=== PATIENT | female | born 1960 | race Caucasian/White ===

== ENCOUNTER 2016-08-31 10:20 | Emergency (ER) | payer BC ==
--- NOTE | 2016-08-31 10:31 | ED Physician Documentation ---
General Adult - HISTORIAN Historian: patient - HPI Chief Complaint: General Adult Timing: still present Further Comments: yes (Pt is a 56 yo female with chronic edema of LE's who c/o increased LE swelling and pain as well as abd pain. Pt did not take her lasix or other daily meds today. Pt c/o L knee pain.) - ROS CONST: other (swelling) EYES/ENT: none CVS/RESP: none GI/: abdominal pain MS/SKIN/LYMPH: leg swelling - PAST HX Past History: hypertension, other (chronic LE edema) Other History: diabetes Type 2 Allergies/Adverse Reactions: Allergies Allergy/AdvReac Type Severity Reaction Status Date / Time No Known Allergies Allergy Verified 05/23/14 12:12 Home Medications: Ambulatory Orders Medication Instructions Recorded oxyCODONE HCL [Percolone] 5 mg PO Q4H PRN 08/31/16 oxyCODONE HCL/ACETAMINOPHEN 1 - 2 tab PO Q4-6 PRN 08/31/16 [Percocet 5-325 mg Tablet] - SOCIAL HX Smoking History: non-smoker - FAMILY HX Family History: No - VITAL SIGNS Vital Signs: Vital Signs Temp Pulse Resp BP Pulse Ox 128/68 06/30/14 11:50 - REVIEWED ASSESSMENTS Nursing Assessment Reviewed: Yes Vitals Reviewed: Yes Progress - Progress Progress: Lasix 40 mg IV some improvement low wbc, pt seen by hematology d/w pcp, will f/u this week. - EKG/XRAY/CT XRAY: knee (L knee: no acute osseous abnormality) General Adult Physical Exam - PHYSICAL EXAM GENERAL APPEARANCE: moderate distress EENT: pharynx normal NECK: normal inspection, supple RESPIRATORY: no resp distress, chest non-tender, breath sounds normal CVS: reg rate & rhythm, heart sounds normal ABDOMEN: soft, normal bowel sounds, tenderness, other (possible ascites) BACK: normal inspection SKIN: warm/dry, normal color EXTREMITIES: non-tender, normal range of motion, edema (3+) NEURO: oriented X3, motor nml, sensation nml Discharge Clincal Impression: LE edema, leg pain, abd pain Referrals: Alexis Pollard MD [Primary Care Provider] - Home Medications: Ambulatory Orders oxyCODONE HCL [Percolone] 5 mg PO Q4H PRN 08/31/16 oxyCODONE HCL/ACETAMINOPHEN [Percocet 5-325 mg Tablet] 1 - 2 tab PO Q4-6 PRN 02/07 Condition: Stable Disposition: 01 HOME, SELF-CARE Decision to Admit: NO Decision Time: 13:45
[2016-08-31 11:31] LABS: BASOPHILS % 0.6 (0.0-1.5); EOSINOPHILS % 4.5 % (0.0-6.8); MEAN CORPUSCULAR HEMOGLOBIN 33.8 pg (28.0-34.0); MEAN CORPUSCULAR VOLUME 103.9 fl (80.0-100.0); MONOCYTES % 10.5 % (0.0-11.0); NEUTROPHILS # 1.1 # k/uL (1.4-7.7)
[2016-08-31 11:45] LABS: eGFR (African) > 60; eGFR (Non-African) > 60
[2016-08-31] MEDS ORDERED: FUROSEMIDE 40 MG/4 ML VIAL ONE (11:48)
[2016-08-31 13:59] VITALS: BP 104/48
[2016-08-31] MEDS ORDERED: FUROSEMIDE 40 MG/4 ML VIAL IVP SCH (14:00)
--- NOTE | 2016-09-01 05:17 | Diagnostic Imaging Report ---
HILDA YUSUF [facility] [address] [facility] [address] [place] [address]. [id number] Report Submission Date: August 31, 2016 1:35:16 PM CDT Patient Study Name: TIM HIDALGO Date: August 31, 2016 12:05:12 PM CDT Modality Type: CR Gender: F Description: LOWER EXTREMITY : 56 Institution: [facility] Physician: HILDA YUSUF Left knee, 3 views. History: Left knee pain without known injury Findings: The osseous structures are intact without acute fracture. The joint space and alignment are normal. There is no soft tissue swelling. No joint effusion present. Impression: 1. No acute osseous abnormality. Electronically signed on August 31, 2016 1:35:16 PM CDT by: Jonah BHATT
--- NOTE | 2016-09-01 05:18 | Diagnostic Imaging Report ---
HILDA YUSUF [facility] [address] [facility] [address] [place] [address]. [id number] Report Submission Date: August 31, 2016 1:35:16 PM CDT Patient Study Name: TIM HIDALGO Date: August 31, 2016 12:05:12 PM CDT Modality Type: CR Gender: F Description: LOWER EXTREMITY : 56 Institution: [facility] Physician: HILDA YUSUF Left knee, 3 views. History: Left knee pain without known injury Findings: The osseous structures are intact without acute fracture. The joint space and alignment are normal. There is no soft tissue swelling. No joint effusion present. Impression: 1. No acute osseous abnormality. Electronically signed on August 31, 2016 1:35:16 PM CDT by: Jonah BHATT
== END 2016-08-31 13:50 | disposition home or self-care (01) ==
LOC: ED 10:20
DX: R60.0 Localized edema (principal); R10.9 Unspecified abdominal pain
CPT/HCPCS: 73562; 80053; 83880; 85025; J1940; 96374; 99283; S1016

== ENCOUNTER 2016-09-10 09:18 | Inpatient (IN) | payer BC ==
[2016-09-10 10:04] LABS: BASOPHILS % 0.4 (0.0-1.5); EOSINOPHILS % 2.4 % (0.0-6.8); MEAN CORPUSCULAR HEMOGLOBIN 34.7 pg (28.0-34.0); MEAN CORPUSCULAR VOLUME 103.2 fl (80.0-100.0); MONOCYTES % 9.6 % (0.0-11.0); NEUTROPHILS # 1.6 # k/uL (1.4-7.7)
--- NOTE | 2016-09-10 10:13 | Diagnostic Imaging Report ---
[facility] [address] [facility].[address] [address] Report Submission Date: September 10, 2016 10:06:38 AM CDT Patient Study Name: TIM HIDALGO Date: September 10, 2016 9:48:31 AM CDT Modality Type: CR Gender: F Description: CHEST : 56 Institution: [facility] Physician: JOAQUÍN TANNER (DISTRIBUTION A CLASS LINEMAN) - ER Single portable view of the chest History: LEFT SIDED CHEST PAIN AND SHORTNESS OF BREATH Findings: No comparison studies Patient is rotated. Cardiac size is upper limits of normal Pulmonary vascular congestion is present with diffuse reticular nodular interstitial lung opacities Basilar atelectasis. 1 cm nodular opacity in the right midlung, indeterminate No acute osseous pathology Impression: 1. Pulmonary vascular congestion/edema 2. Minimal left basilar atelectasis. 3. A 1 cm nodule right mid lung, please compare with prior studies Electronically signed on September 10, 2016 10:06:38 AM CDT by: Funmilayo BHATT
--- NOTE | 2016-09-10 10:21 | ED Physician Documentation ---
General Adult - HISTORIAN Historian: patient - HPI Stated Complaint: BLE swelling, pain Chief Complaint: General Adult Further Comments: yes (56 year old female brought in via wheelchair by family. Patient assisted to stretcher, difficulty with ambulation due to signficant edema in leg and "pain in feet". Patient reports increased edema in legs since last week. Denies dyspnea at rest, c/o dyspnea with exerction.) - ROS CONST: recent illness (08/31 - ER visit for leg edema) EYES/ENT: none CVS/RESP: shortness of breath (with exerction) GI/: none MS/SKIN/LYMPH: leg swelling (bilaterally), leg pain (bilaterally, feet pain) NEURO/PSYCH: difficulty walking (due to edema and pain) - PAST HX Past History: hypertension, other (chronic pancytopenia, HTN, IDDM, ) Other History: diabetes Type 2, other (chronic LE edema) Allergies/Adverse Reactions: Allergies Allergy/AdvReac Type Severity Reaction Status Date / Time No Known Allergies Allergy Verified 09/10/16 09:51 Home Medications: Ambulatory Orders Medication Instructions Recorded oxyCODONE HCL [Percolone] 5 mg PO Q4H PRN 08/31/16 oxyCODONE HCL/ACETAMINOPHEN 1 - 2 tab PO Q4-6 PRN 08/31/16 [Percocet 5-325 mg Tablet] - SOCIAL HX Smoking History: non-smoker - FAMILY HX Family History: No - VITAL SIGNS Vital Signs: Vital Signs Temp Pulse Resp BP Pulse Ox 98.2 F 81 26 H 106/46 98 09/10/16 09:53 09/10/16 09:53 09/10/16 09:53 09/10/16 09:53 09/10/16 09:53 - REVIEWED ASSESSMENTS Nursing Assessment Reviewed: Yes Vitals Reviewed: Yes Progress - Progress Progress: Old records reviewed - history of anemia and leukopenia. Patient states she was seen by hematology "a long time ago". Has not seen PCP since March. [address] Chang - patient has history of pancytopenia since 2014, was evaluated by Dr Carrera, did not return for follow up visit. Recommended patient schedule follow visit in office. Will contact Dr Pollard for admission and treatment of leg edema. Repeat chest xray in AM, may need CT chest if nodule present tomorrow. [id number] [facility] - EKG/XRAY/CT XRAY: chest (see report) ED Results Lab/Radiology - Lab Results Lab Results: Lab Results 09/10/16 09:55 WBC 2.70 K/ul L K/ul (4.00-12.00) RBC 2.89 M/ul L M/ul (3.90-5.20) Hgb 10.0 g/dL L g/dL (12.0-16.0) Hct 29.8 % L % (34.5-46.5) MCV 103.2 fl H fl (80.0-100.0) MCH 34.7 pg H pg (28.0-34.0) MCHC 33.6 g/dL g/dL (30.0-36.0) RDW 13.6 % % (11.3-14.3) Plt Count 71 K/mm3 L K/mm3 (130-400) Neut % (Auto) 59.1 % % (39.0-79.0) Lymph % (Auto) 24.9 % % (16.0-50.0) [place] % (Auto) 9.6 % % (0.0-11.0) Eos % (Auto) 2.4 % % (0.0-6.8) Baso % (Auto) 0.4 (0.0-1.5) Neut # 1.6 # k/uL # k/uL (1.4-7.7) Lymph # 0.7 # k/uL # k/uL (0.6-4.0) [place] # 0.3 # k/uL # k/uL (0.0-0.9) Eos # 0.1 # k/uL # k/uL (0.0-0.6) Baso # 0.0 # k/uL # k/uL (0.0-0.5) Reactive Lymphs % 3.6 % % (0.0-5.0) Reactive Lymphs # 0.1 # k/uL # k/uL (0.0-0.8) - Radiology Radiology Impressions: Single portable view of the chest History: LEFT SIDED CHEST PAIN AND SHORTNESS OF BREATH Findings: No comparison studies Patient is rotated. Cardiac size is upper limits of normal Pulmonary vascular congestion is present with diffuse reticular nodular interstitial lung opacities Basilar atelectasis. 1 cm nodular opacity in the right midlung, indeterminate No acute osseous pathology Impression: 1. Pulmonary vascular congestion/edema 2. Minimal left basilar atelectasis. 3. A 1 cm nodule right mid lung, please compare with prior studies Electronically signed on September 10, 2016 10:06:38 AM CDT by: Funmilayo Lal - Orders Orders: ED Orders Category Date Time Status Place Saline Lock/IV NOW Care 09/10/16 09:26 Active CHEST 1 VIEW [RAD] Stat Exams 09/10/16 09:37 Completed BNP [NT-proBNP] Stat Lab 09/10/16 09:55 Received CBC/PLATELET/DIFF Stat Lab 09/10/16 09:55 Completed CMP Stat Lab 09/10/16 09:55 Received TROPONIN I (cTnI) Stat Lab 09/10/16 09:55 Received UA W/MICRO IF INDICATED Stat Lab 09/10/16 09:26 Ordered EKG WITH COMPARISON Stat Ther 09/10/16 09:38 Ordered General Adult Physical Exam - PHYSICAL EXAM GENERAL APPEARANCE: moderate distress EENT: eye inspection normal, GARCIA RESPIRATORY: no resp distress, chest non-tender, other (deminished in bases) CVS: reg rate & rhythm, heart sounds normal, equal pulses, no murmur, no gallop , PMI nml, no JVD, no friction rub, 24 ABDOMEN: soft, no organomegaly, normal bowel sounds, no abdominal bruit, no distension, other (morbid obesity) EXTREMITIES: non-tender, edema (3+ ankle, 2+ lower legs and thighs), other ( unable to to bear weight due to pain and edema) NEURO: oriented X3, CN's nml as tested, motor nml, sensation nml, mood/affect nml Discharge Clincal Impression: Bilateral leg edema, Pancytopenia, Pulmonary nodule, right CHF (congestive heart failure) Qualifiers: Congestive heart failure type: unspecified congestive heart failure type Congestive heart failure chronicity: acute Qualified Code(s): I50.9 - Heart failure, unspecified Iron deficiency anemia Qualifiers: Iron deficiency anemia type: inadequate dietary iron intake Qualified Code(s): D50.8 - Other iron deficiency anemias Home Medications: Ambulatory Orders oxyCODONE HCL [Percolone] 5 mg PO Q4H PRN 05/10/17 oxyCODONE HCL/ACETAMINOPHEN [Percocet 5-325 mg Tablet] 1 - 2 tab PO Q4-6 PRN 02/07 Condition: Stable Disposition: 01 HOME, SELF-CARE Decision to Admit: NO Decision Time: 11:16
[2016-09-10 10:22] LABS: eGFR (African) > 60; eGFR (Non-African) > 60
[2016-09-10] MEDS ORDERED: FUROSEMIDE 40 MG/4 ML VIAL IVP ONE (10:25)
[2016-09-10] MEDS: GABAPENTIN 100 MG CAPSULE PO SCH ×2 (12:58→17:33)
[2016-09-10] MEDS: POTASSIUM CHLORIDE 20 MEQ TABLET.ER PO SCH ×2 (12:58→20:47)
--- NOTE | 2016-09-10 14:54 | History and Physical Report ---
History of Present Illnes - History of Present Illness Reason for Visit: leg swelling and shortness of breath History of Present Illness: Ms. Betancourt is a 56yo woman with a medical history that includes DM, pancytopenia, and chronic leg swelling. She has lasix at home, but it is not clear how much she takes it. For the last couple of weeks the swelling has been worse in her legs. This morning it got to the point that she was not really able to get up and around. She also had shortness of breath and some pain in the left side of her chest. Evaluation in the ER showed pancytopenia as well as pulmonary congestion on Xray, as well as a 1cm right midlung opacity. She was also noted to have difficulty ambulating. She was admitted to the floor for IV lasix and further evaluation. - Past Medical History Cardiac: HTN, Other (chronic leg swelling). denies: CAD, Valve insufficiency, Pulmonary hypertension Heme/Onc: Other (Pancytopenia) Rheumatologic: Other (Psoriasis) Endocrine: Diabetes (IDDM) - Past Surgical History Past Surgical History: Total Knee Replacement, Other (gall stone removal) - Past Social History Smoke: No Alcohol: None Lives: With Family - Health Maintenance Health Maintenance: Cholesterol Pneumonia Vaccine: No Resuscitation Status: Resusciation Status Resuscitation Status Full Code Review of Systems - Review of Systems Constitutional: negative: Fever, Chills Eyes: negative: pain, vision change ENT: negative: Ear Pain, Ear Discharge Respiratory: Cough, Shortness of Breath, SOB with Excertion. negative: Wheezing Cardiovascular: Chest Pain, Edema. negative: Palpitations Gastrointestinal: negative: Nausea, Vomiting, Diarrhea, Constipation Genitourinary: negative: Dysuria, Frequency Musculoskeletal: Leg Pain. negative: Shoulder Pain Skin: negative: Lesions, Bruising Neurological: negative: Change in Speech, Confusion - Medications/Allergies Allergies/Adverse Reactions: Allergies Allergy/AdvReac Type Severity Reaction Status Date / Time No Known Allergies Allergy Verified 09/10/16 09:51 Current Inpatient Medications: Current Inpatient Medications Ferrous Sulfate (Feosol) 325 mg PO 1100 BIRGIT Furosemide (Lasix) 40 mg IVP Q12 BIRGIT Gabapentin (Neurontin) 100 mg PO TID COUNTS INCLUDE 234 BEDS AT THE [facility] Last Admin: 09/10/16 12:58 Dose: 100 mg Glimepiride (Amaryl) 2 mg PO DAILY COUNTS INCLUDE 234 BEDS AT THE [facility] Lisinopril (Prinivil) 5 mg PO DAILY COUNTS INCLUDE 234 BEDS AT THE [facility] Metformin HCl (Glucophage) 1,000 [place] [address] COUNTS INCLUDE 234 BEDS AT THE [facility] Potassium Chloride (Klor-Con M20) 20 meq PO BID COUNTS INCLUDE 234 BEDS AT THE [facility] Last Admin: 09/10/16 12:58 Dose: 20 meq Sodium Chloride (Normal Saline Flush) 3 ml IV BID COUNTS INCLUDE 234 BEDS AT THE [facility] Exam - Exam Vital Signs: HR 81 T 98.2 R 26 BP 106/46 SpO2 98% General: Alert, Oriented to Person, Oriented to Place, Oriented to Time, Cooperative, No acute distress HEENT: Atraumatic, PERRLA, EOMI Neck: Normal Range of Motion Lungs: Decreased Air Movement. No: Respiratory Distress, Wheezes, Stridor Cardiovascular: Regular rate, Normal S1, Normal S2. No: Rubs Peripheral Edema: 3+ Abdomen: Soft, No masses, Other (mildly tender across lower quadrants). No: Distended, Rigid, Hepatomegaly, Splenomegaly Integumentary: Warm, Dry, Other (the skin of her legs is not erythematous or with skin thickening) Extremities: No: No edema, No tenderness/swelling Neurological: Normal speech, Cranial nerves 3-12 NL. No: Normal gait (limited d /t leg swelling) Psych/Mental Status: Mental status NL - Laboratory Results Laboratory Results: WBC 2.7 H/H 10.0/29.8 Plt 71 Troponin less than 0.03 BNP 576 AST/ALT 60/22 Na 138 K 3.9 BUN 22 Shadowgraph Scale Operator 0.9 Assessment/Plan - Assessment/Plan (1) Bilateral leg edema Status: Acute Current Visit: Yes Plan: Diuresis with IV Lasix as started. Will keep burkett catheter for now, as patient is not able to get up to bathroom. Legs will be wrapped with Travis. (2) CHF (congestive heart failure) Status: Acute Current Visit: Yes Qualifiers: Congestive heart failure type: unspecified congestive heart failure type Congestive heart failure chronicity: acute Qualified Code(s): I50.9 - Heart failure, unspecified Plan: IV Lasix has been started. EKG shows sinus rhythm. Repeat EKG already ordered. Shortness of breath is improved since Lasix was started in ER. Will monitor respiratory status and get repeat Xray in morning. (3) Iron deficiency anemia Status: Acute Current Visit: Yes Qualifiers: Iron deficiency anemia type: inadequate dietary iron intake Qualified Code( s): D50.8 - Other iron deficiency anemias Plan: Continue her home ferrous sulfate and monitor. (4) Pancytopenia Status: Acute Current Visit: Yes Plan: Monitor. Pt has known pancytopenia. (5) Pulmonary nodule, right Status: Acute Current Visit: Yes Plan: Will f/u with this as outpatient. VTE Assessment - RISK FACTOR SCORE VTE RISK FACTOR SCORES: AGE 40-60 YEARS, OBESITY, ANTICIPATED BED CONFINEMENT OR IMMOBILIZATION > 24 HOURS, CONGESTIVE HEART FAILURE OR MYOCARDIAL INFARCTION , LEG SWELLING, ULCERS, VARICOSE VEINS - RISK VTE VERY HIGH RISK: SCORE OF 5+ (RISK PROXIMAL DVT 10-20%+) PROPHYLAXIS NEEDED
[2016-09-10 16:25] VITALS: BMI 105.7
[2016-09-10] MEDS: FUROSEMIDE 40 MG/4 ML VIAL IVP SCH (20:47)
[2016-09-10] MEDS: oxyCODONE/ACETAMINOPHEN 5/325 TABLET PO PRN (20:47)
[2016-09-10] MEDS: SALINE FLUSH 10 ML DISP.SYRIN IV SCH (21:07)
[2016-09-11 06:19] LABS: APPEARANCE,URINE CLEAR (CLEAR); COLOR,URINE AMBER (YELLOW); OCCULT BLOOD,URINE NEGATIVE (NEGATIVE); PH URINE 5.5 (5.0 - 8.0)
[2016-09-11 06:40] LABS: BASOPHILS % 0.5 (0.0-1.5); EOSINOPHILS % 3.2 % (0.0-6.8); MEAN CORPUSCULAR HEMOGLOBIN 35.4 pg (28.0-34.0); MEAN CORPUSCULAR VOLUME 105.3 fl (80.0-100.0); MONOCYTES % 9.2 % (0.0-11.0); NEUTROPHILS # 1.8 # k/uL (1.4-7.7)
[2016-09-11 06:53] LABS: eGFR (African) > 60; eGFR (Non-African) > 60
[2016-09-11] MEDS: GLIMEPIRIDE 2 MG TABLET PO SCH (08:06)
[2016-09-11] MEDS: POTASSIUM CHLORIDE 20 MEQ TABLET.ER PO SCH ×2 (08:06→20:13)
[2016-09-11] MEDS: GABAPENTIN 100 MG CAPSULE PO SCH ×3 (08:07→17:16)
[2016-09-11] MEDS: LISINOPRIL 5 MG TABLET PO SCH (08:07)
[2016-09-11] MEDS: SALINE FLUSH 10 ML DISP.SYRIN IV SCH ×2 (09:00→20:13)
[2016-09-11] MEDS: FUROSEMIDE 40 MG/4 ML VIAL IVP SCH ×2 (09:00→20:33)
--- NOTE | 2016-09-11 09:40 | Diagnostic Imaging Report ---
[facility] [address] [facility].[address] [address] Report Submission Date: September 11, 2016 9:23:45 AM CDT Patient Study Name: TIM HIDALGO Date: September 11, 2016 8:55:19 AM CDT Modality Type: CR Gender: F Description: CHEST : 56 Institution: [facility] Physician: MARTHA ALEXANDRE/MED SURG Chest 2 views History: Congestive heart failure and dyspnea Findings: The lungs are hyperinflated. A calcified right lung granuloma is observed. There is no confluent infiltrate or pleural effusion. Heart size is normal. Impression: Hyperinflation. Electronically signed on September 11, 2016 9:23:45 AM CDT by: Jose Manuel BHATT
--- NOTE | 2016-09-11 10:36 | Inpatient Progress Note ---
Subjective - Required Recertification Statement I anticipate X number of days because-include discharge plan: anticipate 24 more hours - Review of Systems Subjective: Margarita reports feeling better today with regard to shortness of breath and chest pain. Her legs are also less tender, but still somewhat painful. She has not really gotten up much yet today. She has the catheter in place. She had 4100ml output until midnight and per nurse report had another 1000+ overnight. General: Denies: Chills, Night Sweats Pulmonary: Denies: Cough, Pleuritic Chest Pain Cardiovascular: Edema (improved). Denies: Chest Pain, Palpitations Gastrointestinal: Denies: Nausea, Vomiting Neurological: Denies: Numbness, Incoordination Objective - Exam Vitals and I&O: Vital Signs Temp 98.7 F 09/11/16 05:44 Pulse 78 09/11/16 05:44 Resp 20 09/11/16 05:44 BP 114/58 09/11/16 05:44 Pulse Ox 96 09/11/16 07:00 Intake & Output 09/10/16 09/10/16 09/11/16 11:59 23:59 11:59 Intake Total 720 360 Output Total 1999 2099 Balance -1280 -1740 Weight 325 kg 124.284 kg Intake: Oral 720 360 Output: Urine 1999 2099 Other: Voiding Method Indwelling Catheter Indwelling Catheter General: Alert, Oriented to Person, Oriented to Place, Oriented to Time, No acute distress Lungs: Clear to auscultation, Normal air movement Cardiovascular: Regular rate, Normal S1, Normal S2, No murmurs Abdomen: Soft. No: Distended Extremities: Other (Edema has improved since yesterday, but not gone, legs are less tender to touch) Neurological: Normal speech, Cranial nerves 3-12 NL - Results Results: Laboratory Results WBC 2.90 K/ul (4.00-12.00) L 09/11/16 06:30 RBC 2.93 M/ul (3.90-5.20) L 09/11/16 06:30 Hgb 10.4 g/dL (12.0-16.0) L 09/11/16 06:30 Hct 30.8 % (34.5-46.5) L 09/11/16 06:30 MCV 105.3 fl (80.0-100.0) H 09/11/16 06:30 MCH 35.4 pg (28.0-34.0) H 09/11/16 06:30 MCHC 33.7 g/dL (30.0-36.0) 09/11/16 06:30 RDW 13.3 % (11.3-14.3) 09/11/16 06:30 Plt Count 67 K/mm3 (130-400) L 09/11/16 06:30 Neut % (Auto) 63.7 % (39.0-79.0) 09/11/16 06:30 Lymph % (Auto) 20.8 % (16.0-50.0) 09/11/16 06:30 [place] % (Auto) 9.2 % (0.0-11.0) 09/11/16 06:30 Eos % (Auto) 3.2 % (0.0-6.8) 09/11/16 06:30 Baso % (Auto) 0.5 (0.0-1.5) 09/11/16 06:30 Neut # 1.8 # k/uL (1.4-7.7) 09/11/16 06:30 Lymph # 0.6 # k/uL (0.6-4.0) 09/11/16 06:30 [place] # 0.3 # k/uL (0.0-0.9) 09/11/16 06:30 Eos # 0.1 # k/uL (0.0-0.6) 09/11/16 06:30 Baso # 0.0 # k/uL (0.0-0.5) 09/11/16 06:30 Reactive Lymphs % 2.7 % (0.0-5.0) 09/11/16 06:30 Reactive Lymphs # 0.1 # k/uL (0.0-0.8) 09/11/16 06:30 Sodium 137 mmol/L (136-145) 09/11/16 06:30 Potassium 4.0 mmol/L (3.5-5.0) 09/11/16 06:30 Chloride 103 mmol/L (98-110) 09/11/16 06:30 Carbon Dioxide 33 mmol/L (20-32) H 09/11/16 06:30 BUN 15 mg/dL (10-26) 09/11/16 06:30 Creatinine 0.8 mg/dL (0.4-1.5) 09/11/16 06:30 Estimated Creat Clear 176 09/11/16 06:30 Est GFR ( Amer) > 60 (60-) 09/11/16 06:30 Est GFR (Non-Af Amer) > 60 (60-) 09/11/16 06:30 Glucose 111 mg/dL (70-99) H 09/11/16 06:30 Calcium 9.2 mg/dL (8.5-10.5) 09/11/16 06:30 Total Bilirubin 1.5 mg/dL (0.2-1.2) H 09/11/16 06:30 AST 59 U/L (0-41) H 09/11/16 06:30 ALT 19 U/L (0-45) 09/11/16 06:30 Alkaline Phosphatase 122 U/L (46-116) H 09/11/16 06:30 Troponin I < 0.03 ng/mL (0.03-0.06) L 09/10/16 09:55 NT-Pro-B Natriuret Pep 576.6 pg/mL (15.0-125.0) H 09/10/16 09:55 Total Protein 6.7 g/dL (6.0-8.5) 09/11/16 06:30 Albumin 3.4 g/dL (3.0-5.5) 09/11/16 06:30 Urine Color Juany (YELLOW) 06/13/16 12:39 Urine Appearance Clear (CLEAR) 06/13/16 12:39 Urine pH 5.5 (5.0 - 8.0) 06/13/16 12:39 Ur Specific [place] 1.015 (1.010-1.030) 06/13/16 12:39 Urine Protein Negative mg/dL (NEGATIVE) 06/13/16 12:39 Urine Ketones Negative mg/dL (NEGATIVE) 06/13/16 12:39 Urine Occult Blood Negative (NEGATIVE) 06/13/16 12:39 Urine Nitrite Positive (NEGATIVE) H 06/13/16 12:39 Urine Bilirubin Negative (NEGATIVE) 06/13/16 12:39 Urine Urobilinogen 4.0 Eu (0.2-1.0) H 06/13/16 12:39 Ur Leukocyte Esterase Negative (NEGATIVE) 06/13/16 12:39 Urine Glucose Negative mg/dL (NEGATIVE) 06/13/16 12:39 Assessment/Plan - Assessment/Plan (1) Bilateral leg edema Status: Acute Current Visit: Yes Assessment: Improved Plan: Continue Travis wraps for now. Edema has improved. We will dc burkett catheter and see how she does getting up and down to bathroom. (2) CHF (congestive heart failure) Status: Acute Current Visit: Yes Qualifiers: Congestive heart failure type: unspecified congestive heart failure type Congestive heart failure chronicity: acute Qualified Code(s): I50.9 - Heart failure, unspecified Assessment: Lung sounds and shortness of breath have improved. Xray showed improvement in pulmonary congestion and infiltrates Plan: Anticipate discharge tomorrow (3) Iron deficiency anemia Status: Acute Current Visit: Yes Qualifiers: Iron deficiency anemia type: inadequate dietary iron intake Qualified Code( s): D50.8 - Other iron deficiency anemias Assessment: Stable (4) Pancytopenia Status: Chronic Current Visit: Yes Assessment: Stable Plan: Monitor (5) Pulmonary nodule, right Status: Acute Current Visit: Yes Assessment: Improvement in appearance on Xray
[2016-09-11] MEDS: FERROUS SULFATE 325 MG TABLET PO SCH (11:00)
[2016-09-11] MEDS: oxyCODONE/ACETAMINOPHEN 5/325 TABLET PO PRN ×2 (12:14→17:39)
[2016-09-12] MEDS: oxyCODONE/ACETAMINOPHEN 5/325 TABLET PO PRN ×3 (08:11→22:18)
[2016-09-12] MEDS: GABAPENTIN 100 MG CAPSULE PO SCH ×3 (09:26→17:44)
[2016-09-12] MEDS: POTASSIUM CHLORIDE 20 MEQ TABLET.ER PO SCH ×2 (09:26→20:40)
[2016-09-12] MEDS: SALINE FLUSH 10 ML DISP.SYRIN IV SCH ×2 (09:27→21:20)
[2016-09-12] MEDS: FUROSEMIDE 40 MG/4 ML VIAL IVP SCH ×2 (09:27→21:28)
[2016-09-12] MEDS: GLIMEPIRIDE 2 MG TABLET PO SCH (09:28)
[2016-09-12] MEDS: LISINOPRIL 5 MG TABLET PO SCH (09:28)
[2016-09-12 09:36] LABS: MEAN CORPUSCULAR HEMOGLOBIN 34.3 pg (28.0-34.0); MEAN CORPUSCULAR VOLUME 105.7 fl (80.0-100.0)
[2016-09-12 10:08] LABS: eGFR (African) > 60; eGFR (Non-African) > 60
--- NOTE | 2016-09-12 12:32 | Inpatient Progress Note ---
Subjective - Required Recertification Statement I anticipate X number of days because-include discharge plan: anticipate discharge to home tomorrow - Review of Systems Events since last encounter: Catheter was removed yesterday and she has been getting up to the bathroom without incident. Subjective: Margarita reports that her shortness of breath and leg tenderness has continued to improve. She is now having a lot of left knee pain and is having trouble bearing full weight on that knee. She reports that her right leg is moving much better. General: Denies: Chills, Night Sweats HEENT: Denies: Head Aches, Visual Changes Pulmonary: Denies: Dyspnea, Cough Cardiovascular: Edema. Denies: Chest Pain, Palpitations Gastrointestinal: Denies: Nausea, Vomiting Neurological: Denies: Weakness, Numbness Objective - Exam Vitals and I&O: Vital Signs Temp 97.8 F 09/12/16 09:36 Pulse 76 09/12/16 09:36 Resp 18 09/12/16 09:36 BP 98/39 09/12/16 09:36 Pulse Ox 98 09/12/16 11:00 Intake & Output 09/11/16 09/12/16 09/12/16 23:59 11:59 23:59 Intake Total 720 120 Output Total 800 Balance 720 -680 Weight 127.913 kg Intake: Oral 720 120 Output: Urine 800 Other: Voiding Method Indwelling Catheter # Voids 2 General: Alert, Oriented to Person, Oriented to Place, Oriented to Time, No acute distress HEENT: Atraumatic, PERRLA, EOMI Lungs: Clear to auscultation, Normal air movement. No: Respiratory Distress, Wheezes, Rales, Rhonchi Cardiovascular: Other (She has a mild S1 murmur, which was not appreciated yesterday, rate is regular) Abdomen: Soft. No: Distended Extremities: Other (Travis wraps are still in place, she still has some mild edema and tenderness with much pressure) Neurological: Normal speech, Cranial nerves 3-12 NL Psych/Mental Status: Mental status NL, Mood NL - Results Results: Laboratory Results WBC 2.60 K/ul (4.00-12.00) L 09/12/16 09:15 RBC 2.95 M/ul (3.90-5.20) L 09/12/16 09:15 Hgb 10.1 g/dL (12.0-16.0) L 09/12/16 09:15 Hct 31.2 % (34.5-46.5) L 09/12/16 09:15 MCV 105.7 fl (80.0-100.0) H 09/12/16 09:15 MCH 34.3 pg (28.0-34.0) H 09/12/16 09:15 MCHC 32.5 g/dL (30.0-36.0) 09/12/16 09:15 RDW 13.2 % (11.3-14.3) 09/12/16 09:15 Plt Count 73 K/mm3 (130-400) L 09/12/16 09:15 Neut % (Auto) 63.7 % (39.0-79.0) 09/11/16 06:30 Lymph % (Auto) 20.8 % (16.0-50.0) 09/11/16 06:30 [place] % (Auto) 9.2 % (0.0-11.0) 09/11/16 06:30 Eos % (Auto) 3.2 % (0.0-6.8) 09/11/16 06:30 Baso % (Auto) 0.5 (0.0-1.5) 09/11/16 06:30 Neut # 1.8 # k/uL (1.4-7.7) 09/11/16 06:30 Lymph # 0.6 # k/uL (0.6-4.0) 09/11/16 06:30 [place] # 0.3 # k/uL (0.0-0.9) 09/11/16 06:30 Eos # 0.1 # k/uL (0.0-0.6) 09/11/16 06:30 Baso # 0.0 # k/uL (0.0-0.5) 09/11/16 06:30 Reactive Lymphs % 2.7 % (0.0-5.0) 09/11/16 06:30 Reactive Lymphs # 0.1 # k/uL (0.0-0.8) 09/11/16 06:30 Sodium 137 mmol/L (136-145) 09/12/16 09:15 Potassium 4.1 mmol/L (3.5-5.0) 09/12/16 09:15 Chloride 105 mmol/L (98-110) 09/12/16 09:15 Carbon Dioxide 31 mmol/L (20-32) 09/12/16 09:15 BUN 14 mg/dL (10-26) 09/12/16 09:15 Creatinine 0.7 mg/dL (0.4-1.5) 09/12/16 09:15 Estimated Creat Clear 208 09/12/16 09:15 Est GFR ( Amer) > 60 (60-) 09/12/16 09:15 Est GFR (Non-Af Amer) > 60 (60-) 09/12/16 09:15 Glucose 164 mg/dL (70-99) H 09/12/16 09:15 Calcium 9.5 mg/dL (8.5-10.5) 09/12/16 09:15 Total Bilirubin 1.5 mg/dL (0.2-1.2) H 09/11/16 06:30 AST 59 U/L (0-41) H 09/11/16 06:30 ALT 19 U/L (0-45) 09/11/16 06:30 Alkaline Phosphatase 122 U/L (46-116) H 09/11/16 06:30 Troponin I < 0.03 ng/mL (0.03-0.06) L 09/10/16 09:55 NT-Pro-B Natriuret Pep 576.6 pg/mL (15.0-125.0) H 09/10/16 09:55 Total Protein 6.7 g/dL (6.0-8.5) 09/11/16 06:30 Albumin 3.4 g/dL (3.0-5.5) 09/11/16 06:30 Urine Color [place] (YELLOW) 06/13/16 12:39 Urine Appearance Clear (CLEAR) 06/13/16 12:39 Urine pH 5.5 (5.0 - 8.0) 06/13/16 12:39 Ur Specific [place] 1.015 (1.010-1.030) 06/13/16 12:39 Urine Protein Negative mg/dL (NEGATIVE) 06/13/16 12:39 Urine Ketones Negative mg/dL (NEGATIVE) 06/13/16 12:39 Urine Occult Blood Negative (NEGATIVE) 06/13/16 12:39 Urine Nitrite Positive (NEGATIVE) H 06/13/16 12:39 Urine Bilirubin Negative (NEGATIVE) 06/13/16 12:39 Urine Urobilinogen 4.0 Eu (0.2-1.0) H 06/13/16 12:39 Ur Leukocyte Esterase Negative (NEGATIVE) 06/13/16 12:39 Urine Glucose Negative mg/dL (NEGATIVE) 06/13/16 12:39 Assessment/Plan - Assessment/Plan (1) Bilateral leg edema Status: Acute Current Visit: Yes Assessment: Improved Plan: Continue TRAVIS wraps and Lasix if tolerated, 2 doses of Lasix were held d/t low blood pressure (2) CHF (congestive heart failure) Status: Acute Current Visit: Yes Qualifiers: Congestive heart failure type: unspecified congestive heart failure type Congestive heart failure chronicity: acute Qualified Code(s): I50.9 - Heart failure, unspecified Assessment: Improved Plan: Patient continues to have more output than input, leg swelling is improved and lungs are clear. Will continue Lasix and hold as needed for low blood pressure. Will request echocardiogram. Pt has mild murmur today, perhaps is transient. (3) Iron deficiency anemia Status: Acute Current Visit: Yes Qualifiers: Iron deficiency anemia type: inadequate dietary iron intake Qualified Code( s): D50.8 - Other iron deficiency anemias Assessment: Stable Plan: Monitor (4) Pancytopenia Status: Chronic Current Visit: Yes Assessment: Stable Plan: Monitor (5) Pulmonary nodule, right Status: Resolved Current Visit: Yes
[2016-09-12] MEDS: FERROUS SULFATE 325 MG TABLET PO SCH (13:27)
[2016-09-13] MEDS: GABAPENTIN 100 MG CAPSULE PO SCH ×3 (08:48→17:09)
[2016-09-13] MEDS: POTASSIUM CHLORIDE 20 MEQ TABLET.ER PO SCH (08:48)
[2016-09-13] MEDS: SALINE FLUSH 10 ML DISP.SYRIN IV SCH (08:48)
[2016-09-13] MEDS: GLIMEPIRIDE 2 MG TABLET PO SCH (08:49)
[2016-09-13] MEDS: LISINOPRIL 5 MG TABLET PO SCH (08:49)
[2016-09-13] MEDS: oxyCODONE/ACETAMINOPHEN 5/325 TABLET PO PRN (09:39)
[2016-09-13] MEDS: FERROUS SULFATE 325 MG TABLET PO SCH (10:24)
[2016-09-13] MEDS: FUROSEMIDE 40 MG/4 ML VIAL IVP SCH (10:28)
--- NOTE | 2016-09-13 11:47 | Inpatient Progress Note ---
Subjective - Required Recertification Statement I anticipate X number of days because-include discharge plan: Anticipate discharge after echocardiogram this afternoon - Review of Systems Events since last encounter: Lasix changed from IV to oral Subjective: Margarita reports that her shortness of breath is essentially gone. Her legs are still somewhat tender and she has significant left knee pain (the right has had a TKR). She is getting around a little better and prefers the wider walker, as she has been using here as opposed to the narrow one at home. General: Denies: Chills, Night Sweats HEENT: Denies: Head Aches, Visual Changes Pulmonary: Denies: Dyspnea, Cough Cardiovascular: Edema. Denies: Chest Pain, Palpitations Neurological: Denies: Incoordination, Change in Speech Objective - Exam Vitals and I&O: Vital Signs Temp 98.0 F 09/13/16 10:00 Pulse 80 09/13/16 10:00 Resp 16 09/13/16 10:00 BP 118/58 09/13/16 10:00 Pulse Ox 97 09/13/16 10:00 Intake & Output 09/12/16 09/12/16 09/13/16 11:59 23:59 11:59 Intake Total 120 600 360 Output Total 800 600 400 Balance -680 0 -40 Weight 127.913 kg 128.82 kg Intake: Oral 120 600 360 Output: Urine 800 600 400 Other: Voiding Method Toilet Toilet # Voids 2 3 # Bowel Movements 2 General: Alert, Oriented to Person HEENT: Atraumatic, PERRLA Lungs: Clear to auscultation. No: Respiratory Distress, Wheezes, Rales Cardiovascular: Regular rate, Murmur Extremities: Other (2+ edema) Skin: Warm, Dry. No: Cellulitis, Ulcer Neurological: Normal speech, Cranial nerves 3-12 NL, Other (Gait changes d/t body habitus and leg edema/pain) - Results Results: Laboratory Results WBC 2.60 K/ul (4.00-12.00) L 09/12/16 09:15 RBC 2.95 M/ul (3.90-5.20) L 09/12/16 09:15 Hgb 10.1 g/dL (12.0-16.0) L 09/12/16 09:15 Hct 31.2 % (34.5-46.5) L 09/12/16 09:15 MCV 105.7 fl (80.0-100.0) H 09/12/16 09:15 MCH 34.3 pg (28.0-34.0) H 09/12/16 09:15 MCHC 32.5 g/dL (30.0-36.0) 09/12/16 09:15 RDW 13.2 % (11.3-14.3) 09/12/16 09:15 Plt Count 73 K/mm3 (130-400) L 09/12/16 09:15 Neut % (Auto) 63.7 % (39.0-79.0) 09/11/16 06:30 Lymph % (Auto) 20.8 % (16.0-50.0) 09/11/16 06:30 [place] % (Auto) 9.2 % (0.0-11.0) 09/11/16 06:30 Eos % (Auto) 3.2 % (0.0-6.8) 09/11/16 06:30 Baso % (Auto) 0.5 (0.0-1.5) 09/11/16 06:30 Neut # 1.8 # k/uL (1.4-7.7) 09/11/16 06:30 Lymph # 0.6 # k/uL (0.6-4.0) 09/11/16 06:30 [place] # 0.3 # k/uL (0.0-0.9) 09/11/16 06:30 Eos # 0.1 # k/uL (0.0-0.6) 09/11/16 06:30 Baso # 0.0 # k/uL (0.0-0.5) 09/11/16 06:30 Reactive Lymphs % 2.7 % (0.0-5.0) 09/11/16 06:30 Reactive Lymphs # 0.1 # k/uL (0.0-0.8) 09/11/16 06:30 Sodium 137 mmol/L (136-145) 09/12/16 09:15 Potassium 4.1 mmol/L (3.5-5.0) 09/12/16 09:15 Chloride 105 mmol/L (98-110) 09/12/16 09:15 Carbon Dioxide 31 mmol/L (20-32) 09/12/16 09:15 BUN 14 mg/dL (10-26) 09/12/16 09:15 Creatinine 0.7 mg/dL (0.4-1.5) 09/12/16 09:15 Estimated Creat Clear 208 09/12/16 09:15 Est GFR ( Amer) > 60 (60-) 09/12/16 09:15 Est GFR (Non-Af Amer) > 60 (60-) 09/12/16 09:15 Glucose 164 mg/dL (70-99) H 09/12/16 09:15 Calcium 9.5 mg/dL (8.5-10.5) 09/12/16 09:15 Total Bilirubin 1.5 mg/dL (0.2-1.2) H 09/11/16 06:30 AST 59 U/L (0-41) H 09/11/16 06:30 ALT 19 U/L (0-45) 09/11/16 06:30 Alkaline Phosphatase 122 U/L (46-116) H 09/11/16 06:30 Troponin I < 0.03 ng/mL (0.03-0.06) L 09/10/16 09:55 NT-Pro-B Natriuret Pep 576.6 pg/mL (15.0-125.0) H 09/10/16 09:55 Total Protein 6.7 g/dL (6.0-8.5) 09/11/16 06:30 Albumin 3.4 g/dL (3.0-5.5) 09/11/16 06:30 Urine Color [place] (YELLOW) 06/13/16 12:39 Urine Appearance Clear (CLEAR) 06/13/16 12:39 Urine pH 5.5 (5.0 - 8.0) 06/13/16 12:39 Ur Specific [place] 1.015 (1.010-1.030) 06/13/16 12:39 Urine Protein Negative mg/dL (NEGATIVE) 06/13/16 12:39 Urine Ketones Negative mg/dL (NEGATIVE) 06/13/16 12:39 Urine Occult Blood Negative (NEGATIVE) 06/13/16 12:39 Urine Nitrite Positive (NEGATIVE) H 06/13/16 12:39 Urine Bilirubin Negative (NEGATIVE) 06/13/16 12:39 Urine Urobilinogen 4.0 Eu (0.2-1.0) H 06/13/16 12:39 Ur Leukocyte Esterase Negative (NEGATIVE) 06/13/16 12:39 Urine Glucose Negative mg/dL (NEGATIVE) 06/13/16 12:39 Assessment/Plan - Assessment/Plan (1) Bilateral leg edema Status: Acute Current Visit: Yes Assessment: Improved Plan: Continue Travis wraps (2) CHF (congestive heart failure) Status: Acute Current Visit: Yes Qualifiers: Congestive heart failure type: unspecified congestive heart failure type Congestive heart failure chronicity: acute Qualified Code(s): I50.9 - Heart failure, unspecified Assessment: Improved Plan: Will dc IV lasix and switch to PO (3) Iron deficiency anemia Status: Acute Current Visit: Yes Qualifiers: Iron deficiency anemia type: inadequate dietary iron intake Qualified Code( s): D50.8 - Other iron deficiency anemias Assessment: Stable Plan: Monitor clinical status (4) Pancytopenia Status: Chronic Current Visit: Yes Assessment: Stable Plan: Monitor clinical status (5) Pulmonary nodule, right Status: Resolved Current Visit: Yes
[2016-09-13 18:26] VITALS: BP 108/57
[2016-09-13] MEDS ORDERED: FUROSEMIDE 40 MG TABLET PO SCH (21:00)
== END 2016-09-13 18:28 | DRG 292 ==
LOC: ED 09:18 → SOUTH 11:25
PROVIDERS: ADMIT Physician Assistant; ATTEND Family Medicine
DX: I50.9 Heart failure, unspecified (principal); D61.818 Other pancytopenia; R60.0 Localized edema; D50.9 Iron deficiency anemia, unspecified; R91.8 Other nonspecific abnormal finding of lung field
CPT/HCPCS: 36415; 71010; 71020; 80048; 80053; 81002; 83880; 84484; 85025; 85027; 87086; 87186; 93005; 93306; 97116; A9270; J1940; 99223; 99232; 99238; S1016

== ENCOUNTER 2016-09-13 18:28 | Inpatient (IN) | payer BC ==
[2016-09-13] MEDS ORDERED: oxyCODONE/ACETAMINOPHEN 5/325 TABLET PO PRN (19:19)
[2016-09-13 19:44] VITALS: BMI 41.9
[2016-09-13] MEDS: POTASSIUM CHLORIDE 20 MEQ TABLET.ER PO SCH (20:03)
[2016-09-13] MEDS: ENOXAPARIN SODIUM 30 MG/0.3 ML DISP.SYRIN SQ SCH (20:03)
[2016-09-14] MEDS: PANTOPRAZOLE SODIUM 40 MG TABLET PO SCH (06:09)
[2016-09-14] MEDS: GABAPENTIN 100 MG CAPSULE PO SCH ×3 (09:52→18:12)
[2016-09-14] MEDS: GLIMEPIRIDE 2 MG TABLET PO SCH (09:52)
[2016-09-14] MEDS: LISINOPRIL 5 MG TABLET PO SCH (09:52)
[2016-09-14] MEDS: FUROSEMIDE 40 MG TABLET PO SCH (09:52)
[2016-09-14] MEDS: POTASSIUM CHLORIDE 20 MEQ TABLET.ER PO SCH ×2 (09:52→19:46)
[2016-09-14] MEDS: FERROUS SULFATE 325 MG TABLET PO SCH (11:47)
[2016-09-14] MEDS: oxyCODONE/ACETAMINOPHEN 5/325 TABLET PO PRN ×2 (13:21→21:29)
[2016-09-14] MEDS: ENOXAPARIN SODIUM 30 MG/0.3 ML DISP.SYRIN SQ SCH (19:55)
[2016-09-15] MEDS: PANTOPRAZOLE SODIUM 40 MG TABLET PO SCH (06:07)
[2016-09-15] MEDS: oxyCODONE/ACETAMINOPHEN 5/325 TABLET PO PRN ×3 (07:27→21:39)
[2016-09-15] MEDS: GLIMEPIRIDE 2 MG TABLET PO SCH (09:36)
[2016-09-15] MEDS: FUROSEMIDE 40 MG TABLET PO SCH (09:36)
[2016-09-15] MEDS: GABAPENTIN 100 MG CAPSULE PO SCH ×3 (09:36→17:31)
[2016-09-15] MEDS: POTASSIUM CHLORIDE 20 MEQ TABLET.ER PO SCH ×2 (09:36→20:38)
[2016-09-15] MEDS: LISINOPRIL 5 MG TABLET PO SCH (09:36)
[2016-09-15] MEDS: FERROUS SULFATE 325 MG TABLET PO SCH (11:08)
[2016-09-15] MEDS: ENOXAPARIN SODIUM 30 MG/0.3 ML DISP.SYRIN SQ SCH (20:38)
[2016-09-16] MEDS: PANTOPRAZOLE SODIUM 40 MG TABLET PO SCH (05:31)
[2016-09-16] MEDS: oxyCODONE/ACETAMINOPHEN 5/325 TABLET PO PRN ×4 (06:19→21:45)
[2016-09-16] MEDS: GABAPENTIN 100 MG CAPSULE PO SCH ×3 (09:50→17:10)
[2016-09-16] MEDS: LISINOPRIL 5 MG TABLET PO SCH (09:50)
[2016-09-16] MEDS: FUROSEMIDE 40 MG TABLET PO SCH (09:50)
[2016-09-16] MEDS: GLIMEPIRIDE 2 MG TABLET PO SCH (09:51)
[2016-09-16] MEDS: POTASSIUM CHLORIDE 20 MEQ TABLET.ER PO SCH ×2 (09:51→21:44)
[2016-09-16] MEDS: FERROUS SULFATE 325 MG TABLET PO SCH (09:52)
[2016-09-16] MEDS: ENOXAPARIN SODIUM 30 MG/0.3 ML DISP.SYRIN SQ SCH (21:44)
[2016-09-17] MEDS: PANTOPRAZOLE SODIUM 40 MG TABLET PO SCH (05:54)
[2016-09-17] MEDS: oxyCODONE/ACETAMINOPHEN 5/325 TABLET PO PRN ×2 (06:00→21:03)
[2016-09-17] MEDS: POTASSIUM CHLORIDE 20 MEQ TABLET.ER PO SCH ×2 (09:54→21:03)
[2016-09-17] MEDS: GLIMEPIRIDE 2 MG TABLET PO SCH (09:54)
[2016-09-17] MEDS: FUROSEMIDE 40 MG TABLET PO SCH (09:54)
[2016-09-17] MEDS: LISINOPRIL 5 MG TABLET PO SCH (09:55)
[2016-09-17] MEDS: GABAPENTIN 100 MG CAPSULE PO SCH ×3 (09:55→18:00)
[2016-09-17] MEDS: FERROUS SULFATE 325 MG TABLET PO SCH (11:39)
[2016-09-17] MEDS: ENOXAPARIN SODIUM 30 MG/0.3 ML DISP.SYRIN SQ SCH (21:06)
[2016-09-18] MEDS: PANTOPRAZOLE SODIUM 40 MG TABLET PO SCH (05:51)
[2016-09-18] MEDS: oxyCODONE/ACETAMINOPHEN 5/325 TABLET PO PRN ×3 (06:18→20:57)
[2016-09-18] MEDS: LISINOPRIL 5 MG TABLET PO SCH (08:32)
[2016-09-18] MEDS: POTASSIUM CHLORIDE 20 MEQ TABLET.ER PO SCH ×2 (08:32→20:57)
[2016-09-18] MEDS: FUROSEMIDE 40 MG TABLET PO SCH (08:32)
[2016-09-18] MEDS: GABAPENTIN 100 MG CAPSULE PO SCH ×3 (08:32→18:42)
[2016-09-18] MEDS: GLIMEPIRIDE 2 MG TABLET PO SCH (08:32)
[2016-09-18] MEDS: FERROUS SULFATE 325 MG TABLET PO SCH (10:33)
[2016-09-18] MEDS: ENOXAPARIN SODIUM 30 MG/0.3 ML DISP.SYRIN SQ SCH (20:57)
[2016-09-19] MEDS: PANTOPRAZOLE SODIUM 40 MG TABLET PO SCH (05:51)
[2016-09-19] MEDS: oxyCODONE/ACETAMINOPHEN 5/325 TABLET PO PRN ×2 (05:51→21:58)
[2016-09-19] MEDS: GABAPENTIN 100 MG CAPSULE PO SCH ×3 (08:40→18:06)
[2016-09-19] MEDS: LISINOPRIL 5 MG TABLET PO SCH (08:40)
[2016-09-19] MEDS: FUROSEMIDE 40 MG TABLET PO SCH (08:40)
[2016-09-19] MEDS: GLIMEPIRIDE 2 MG TABLET PO SCH (08:40)
[2016-09-19] MEDS: POTASSIUM CHLORIDE 20 MEQ TABLET.ER PO SCH ×2 (08:40→20:22)
[2016-09-19] MEDS: FERROUS SULFATE 325 MG TABLET PO SCH (11:07)
[2016-09-19] MEDS: ENOXAPARIN SODIUM 30 MG/0.3 ML DISP.SYRIN SQ SCH (20:22)
[2016-09-20] MEDS: PANTOPRAZOLE SODIUM 40 MG TABLET PO SCH (06:28)
[2016-09-20 07:02] LABS: eGFR (African) > 60; eGFR (Non-African) > 60
[2016-09-20] MEDS: oxyCODONE/ACETAMINOPHEN 5/325 TABLET PO PRN (07:18)
[2016-09-20] MEDS: FUROSEMIDE 40 MG TABLET PO SCH (08:46)
[2016-09-20] MEDS: LISINOPRIL 5 MG TABLET PO SCH (08:46)
[2016-09-20] MEDS: GLIMEPIRIDE 2 MG TABLET PO SCH (08:46)
[2016-09-20] MEDS: GABAPENTIN 100 MG CAPSULE PO SCH (08:46)
[2016-09-20] MEDS: POTASSIUM CHLORIDE 20 MEQ TABLET.ER PO SCH (08:46)
[2016-09-20 09:09] VITALS: BP 105/49
[2016-09-20] MEDS: FERROUS SULFATE 325 MG TABLET PO SCH (11:18)
[2016-09-20] MEDS ORDERED: POTASSIUM CHLORIDE 20 MEQ TABLET.ER PO ONE (11:37)
--- NOTE | 2016-09-20 12:01 | Discharge Summary ---
Discharge Summary - Discharge Sumary Condition at Discharge: Stable Home Medications: Ambulatory Orders Medication Instructions Recorded oxyCODONE HCL/ACETAMINOPHEN 1 - 2 tab PO Q4-6 PRN 08/31/16 [Percocet 5/325] Ferrous Sulfate [Feosol] 325 mg PO 1100 09/13/16 Potassium Chloride [Klor-Con M20] 20 meq PO DIRECTED #0 09/20/16 Consultations this Visit: None Procedures this Visit: None Allergies/Adverse Reactions: Allergies Allergy/AdvReac Type Severity Reaction Status Date / Time No Known Allergies Allergy Verified 09/10/16 09:51 Patient Problems: Current Active Problems Problem Status Onset Gait disturbance Acute Hypokalemia Acute - Final Diagnosis (1) Gait disturbance Problems: Improved with PT and OT (2) CHF (congestive heart failure) Problems: stable, will continue with present medications (3) Diabetes mellitus type 2 Problems: stable (4) Essential hypertension Problems: stable (5) Pancytopenia Problems: stable (6) Hypokalemia Problems: will increase potassium
--- NOTE | 2016-09-20 12:42 | Inpatient Progress Note ---
Subjective - Required Recertification Statement I anticipate X number of days because-include discharge plan: 5 days - Review of Systems Events since last encounter: Patient seems to be doing well at this time. Participating in PT and OT well. DM , HTN and CHF is doing well. General: Chills Pulmonary: Denies: Dyspnea, Cough Cardiovascular: Denies: Chest Pain Gastrointestinal: Denies: Nausea, Vomiting, Constipation Objective - Exam Vitals and I&O: Vital Signs Temp 98.1 F 09/20/16 09:00 Pulse 73 09/20/16 09:00 Resp 18 09/20/16 09:00 BP 105/49 09/20/16 09:00 Pulse Ox 97 09/20/16 09:00 Intake & Output 09/19/16 09/20/16 09/20/16 23:59 11:59 23:59 Intake Total 420 240 Balance 420 240 Weight 123.831 kg Intake: Oral 420 240 Other: Voiding Method Toilet Toilet # Voids 3 # Bowel Movements 2 General: Alert, Oriented to Person, Oriented to Place, Oriented to Time, Cooperative Lungs: Clear to auscultation, Normal air movement, Speaks full Sentences. No: Wheezes, Rales, Rhonchi Cardiovascular: Regular rate, Normal S1, Normal S2, No murmurs Abdomen: Normal bowel sounds, Soft, No tenderness, No hepatospenomegaly, No masses Extremities: No clubbing, Other (2-3plus edema) Skin: Normal, [place], Warm, Dry - Results Results: Laboratory Results Sodium 136 mmol/L (136-145) 09/20/16 06:30 Potassium 2.8 mmol/L (3.5-5.0) L 09/20/16 06:30 Chloride 100 mmol/L (98-110) 09/20/16 06:30 Carbon Dioxide 28 mmol/L (20-32) 09/20/16 06:30 BUN 16 mg/dL (10-26) 09/20/16 06:30 Creatinine 0.7 mg/dL (0.4-1.5) 09/20/16 06:30 Estimated Creat Clear 201 09/20/16 06:30 Est GFR ( Amer) > 60 (60-) 09/20/16 06:30 Est GFR (Non-Af Amer) > 60 (60-) 09/20/16 06:30 Glucose 84 mg/dL (70-99) 09/20/16 06:30 Calcium 9.8 mg/dL (8.5-10.5) 09/20/16 06:30 Assessment/Plan - Assessment/Plan (1) Gait disturbance Status: Acute Current Visit: Yes Assessment: improving (2) CHF (congestive heart failure) Status: Acute Current Visit: No Qualifiers: Congestive heart failure type: unspecified congestive heart failure type Congestive heart failure chronicity: acute Qualified Code(s): I50.9 - Heart failure, unspecified Comment: stable (3) Diabetes mellitus type 2 Status: Acute Current Visit: No Assessment: stable (4) Essential hypertension Status: Acute Current Visit: No Assessment: stable (5) Pancytopenia Status: Acute Current Visit: No (6) Hypokalemia Status: Acute Current Visit: Yes
== END 2016-09-20 12:10 | disposition home or self-care (01) | DRG 92 ==
LOC: SOUTH 18:28
PROVIDERS: ADMIT Family Medicine; ATTEND Family Medicine
DX: R26.9 Unspecified abnormalities of gait and mobility (principal); D61.818 Other pancytopenia; I50.9 Heart failure, unspecified; E11.9 Type 2 diabetes mellitus without complications; I10 Essential (primary) hypertension; E87.6 Hypokalemia
CPT/HCPCS: 36415; 80048; 97110; 97112; 97116; 97161; 97530; 97535; A9270; J1650

== ENCOUNTER 2016-10-11 14:36 | Inpatient (IN) | payer BC ==
[2016-10-11 15:09] LABS: BASOPHILS % 0.5 (0.0-1.5); EOSINOPHILS % 0.6 % (0.0-6.8); MEAN CORPUSCULAR HEMOGLOBIN 33.1 pg (28.0-34.0); MONOCYTES % 5.7 % (0.0-11.0); NEUTROPHILS # 6.8 # k/uL (1.4-7.7)
[2016-10-11 15:21] LABS: APPEARANCE,URINE Cloudy (CLEAR); COLOR,URINE Brown (YELLOW); OCCULT BLOOD,URINE 2+ (NEGATIVE); PH URINE 8.5 (5.0 - 8.0)
[2016-10-11] MEDS ORDERED: DEXTROSE 5 %-0.45 % NACL 1,000 ML IV SCH ×3 (16:00→23:57)
[2016-10-11] MEDS ORDERED: DEXTROSE 5 % IN WATER 1,000 ML IV ONE (16:00)
[2016-10-11] MEDS ORDERED: DEXTROSE 50% 50 ML DISP.SYRIN IVP ONE ×2 (16:01→16:02)
[2016-10-11] MEDS ORDERED: DEXTROSE 5 %-0.45 % NACL 1,000 ML IV ONE ×2 (16:01→19:50)
[2016-10-11 16:41] LABS: ABG BASE EXCESS -11.2 (-2 - +2); ABG PH 7.3 (7.35-7.45)
--- NOTE | 2016-10-11 17:58 | ED Physician Documentation ---
Female Urogenital Problems - HISTORIAN Historian: patient - HPI Stated Complaint: inability to urinate Chief Complaint: Female Urogenital Problems Onset: days ago (2) Severity: mild Further Comments: yes (Patient states that she has not been urinating for 2 day. No urinary problems prior to problems with urinating) - Associated Symptoms Urinary Symptoms: none - ROS CONST: none. denies: fever, chills - PAST HX Past History: other (HTN, CHF) Other History: diabetes Type 2 Allergies/Adverse Reactions: Allergies Allergy/AdvReac Type Severity Reaction Status Date / Time No Known Allergies Allergy Verified 10/11/16 15:16 Home Medications: Ambulatory Orders Medication Instructions Recorded Ferrous Sulfate [Feosol] 325 mg PO 1100 09/13/16 - SOCIAL HX Smoking History: non-smoker Alcohol Use: none Drug Use: none - FAMILY HX Family History: CAD - VITAL SIGNS Vital Signs: Vital Signs Temp Pulse Resp BP Pulse Ox 98.7 F 74 20 115/45 98 10/11/16 14:45 10/11/16 14:45 10/11/16 14:45 10/11/16 14:45 10/11/16 14:45 ED Results Lab/Radiology - Lab Results Lab Results: Lab Results 10/11/16 15:05 WBC 8.50 K/ul K/ul (4.00-12.00) RBC 3.67 M/ul L M/ul (3.90-5.20) Hgb 12.2 g/dL g/dL (12.0-16.0) Hct 37.1 % % (34.5-46.5) MCV 101.0 fl H fl (80.0-100.0) MCH 33.1 pg pg (28.0-34.0) MCHC 32.8 g/dL g/dL (30.0-36.0) RDW 13.3 % % (11.3-14.3) Plt Count 135 K/mm3 K/mm3 (130-400) Neut % (Auto) 80.2 % H % (39.0-79.0) Lymph % (Auto) 11.7 % L % (16.0-50.0) [place] % (Auto) 5.7 % % (0.0-11.0) Eos % (Auto) 0.6 % % (0.0-6.8) Baso % (Auto) 0.5 (0.0-1.5) Neut # (Auto) 6.8 # k/uL # k/uL (1.4-7.7) Lymph # (Auto) 1.0 # k/uL # k/uL (0.6-4.0) [place] # (Auto) 0.5 # k/uL # k/uL (0.0-0.9) Eos # (Auto) 0.0 # k/uL # k/uL (0.0-0.6) Baso # (Auto) 0.0 # k/uL # k/uL (0.0-0.5) Reactive Lymphs % 1.3 % % (0.0-5.0) Reactive Lymphs # 0.1 # k/uL # k/uL (0.0-0.8) - Orders Orders: ED Orders Category Date Time Status Place IV Lock 1T Care 10/11/16 15:01 Active CBC/PLATELET/DIFF Routine Lab 10/11/16 15:05 Completed CMP Routine Lab 10/11/16 15:05 Received URINALYSIS Routine Lab 10/11/16 15:15 Received URINE CULTURE Routine Lab 10/11/16 15:05 Received Female Urogenital Problems - EXAM General Appearance: alert, mild distress EENT: eye inspection normal, ENT inspection normal Neck: nml inspection Respiratory: no resp. distress, breath sounds nml. No: wheezes, rales, rhonchi CVS: reg rate & rhythm, heart sounds normal, equal pulses Abdomen: no organomegaly, no distention, nml bowel sounds, tenderness (in the lower quadrant area). No: guarding, rebound Back: non-tender, painless ROM Skin: color nml, no rash, warm,dry Extremities: non-tender, normal range of motion, edema (1 plus) Neuro: oriented X3, CN's nml as tested, motor nml, sensation nml, mood/affect nml, cognition normal Discharge Clincal Impression: Acute renal failure (ARF), Diabetes mellitus type 2, Essential hypertension, CHF (congestive heart failure) Referrals: Alexis Pollard MD [Primary Care Provider] - 2 Days Home Medications: Ambulatory Orders Ferrous Sulfate [Feosol] 325 mg PO 1100 09/13/16 Condition: Stable Disposition: 02 XFER [facility] HOSP Decision to Admit: [id number] Date of Decison to Admit: 10/11/16 Decision Time: 17:57
[2016-10-11] MEDS ORDERED: ENOXAPARIN SODIUM 30 MG/0.3 ML DISP.SYRIN SQ ONE (18:09)
[2016-10-11] MEDS ORDERED: cefTRIAXone SODIUM 1 GM in 0.9 % SODIUM CHLORIDE 50 ML IV ONE (18:13)
--- NOTE | 2016-10-11 18:27 | History and Physical Report ---
History of Present Illnes - History of Present Illness Reason for Visit: decrease urinary output History of Present Illness: Patient is a 56-year-old white female who states that over the last 36 hours she 's had very little urine output. Patient has recently been admitted to the hospital for congestive heart failure. Patient was seen in the ED for pedal edema and had her Lasix increased from 40 mg once a day to 40 mg twice a day. Patient states she's been having some mild mid abdominal pain and suprapubic pain. Patient denies any dysuria and a frequency her hematuria. Patient denies any fever or chills. Patient states that her blood sugars have been stable. Patient was seen in the ED and was noted to have very concentrated urine. It's worth found to be in a metabolic acidosis of the be probably related to lactic acidosis. This was felt to be probably related to the patient metformin and dehydration. Patient was subsequently admitted to the hospital for IV hydration and management of her diabetes. Patient was noted to be hypoglycemic on admission to the ED with a blood sugar 43. - Past Medical History Cardiac: HTN, Other (chronic leg swelling). denies: CAD, Valve insufficiency, Pulmonary hypertension Heme/Onc: Other (Pancytopenia) Rheumatologic: Other (Psoriasis) Endocrine: Diabetes (IDDM) - Past Surgical History Past Surgical History: Total Knee Replacement, Other (gall stone removal) - Past Family History Mother Family History: Brother 1 Family History: - Past Social History Smoke: No Alcohol: None Lives: With Family - Health Maintenance Health Maintenance: Cholesterol Pneumonia Vaccine: Yes Resuscitation Status: Resusciation Status Resuscitation Status Full Code - Unable to Obtain History Unable to Obtain: No Review of Systems - Review of Systems Constitutional: Weakness. negative: Fever, Chills, Sweats Eyes: negative: pain, vision change ENT: negative: Ear Pain, Ear Discharge, Nose Pain, Nose Congestion, Mouth Pain, Mouth Swelling Respiratory: negative: Cough, Dry, Shortness of Breath, Hemoptysis, SOB with Excertion, Pleuritic Pain Cardiovascular: Light Headedness. negative: Chest Pain, Palpitations, Edema Gastrointestinal: Nausea, Abdominal Pain. negative: Vomiting, Diarrhea, Constipation, Melena, Hematochezia Genitourinary: Other (decrease urinary output). negative: Dysuria, Frequency, Incontinence, Hematuria Musculoskeletal: negative: Neck Pain Skin: negative: Rash, Lesions Neurological: Weakness. negative: Numbness, Incoordination, Change in Speech, Confusion - Medications/Allergies Allergies/Adverse Reactions: Allergies Allergy/AdvReac Type Severity Reaction Status Date / Time No Known Allergies Allergy Verified 10/11/16 15:16 Current Inpatient Medications: Current Inpatient Medications Enoxaparin Sodium (Lovenox) 30 mg SQ NOW ONE Stop: 10/11/16 18:10 Sodium Chloride (Normal Saline) 1,000 mls @ 1,000 mls/hr IV Q1 BIRGIT Ceftriaxone Sodium 1 gm/ (Sodium Chloride) 50 mls @ 100 mls/hr IV QD ONE Stop: 10/11/16 18:42 Dextrose/Sodium Chloride (D51/2ns) 1,000 mls @ 100 mls/hr IV Q8H [facility] Miscellaneous (Chem Sticks) 1 each MC Q2 [facility] Exam - Exam General: Alert, Oriented to Person, Oriented to Place, Oriented to Time, Cooperative. No: Mild distress HEENT: Atraumatic, PERRLA. No: Mouth Mucous membr. moist/[place] (dry), Pharyngeal Erythema Neck: Normal Range of Motion, Lymphadenopathy. No: Stridor, Rigidity Carotids: WNL Thyroid: WNL Lungs: Clear to auscultation, Normal air movement, Speaks full Sentences. No: Respiratory Distress, Wheezes, Rales, Rhonchi Cardiovascular: Regular rate, Normal S1, Normal S2, No murmurs. No: Gallops, Rubs Abdomen: Soft, No hepatospenomegaly, No masses, Other (mild diffuse tenderness over the suprapubic area), Decreased Bowel Sounds. No: Distended Integumentary: Normal, [place], Warm, Dry Extremities: No clubbing, No cyanosis, Other (trace) Neurological: Normal gait, Normal speech, Strength Equal Bilat, Normal tone, Sensation intact, Cranial nerves 3-12 NL, Reflexes 2+ Psych/Mental Status: Mental status NL, Mood NL, Appropriate Affect, Intact Judgment Assessment/Plan - Assessment/Plan (1) Acute renal failure (ARF) Status: Acute Assessment: Patient has acute renal failure. Previous Creatinines have been <1, today 6.1. I have talked with Dr Nash about the patient. Will stop metformin and give IV fluids. beleive some of the renal failure is prerenal. Will monitor electrolytes and renal function. (2) Metabolic acidosis Status: Acute Assessment: probably related to metformin lactic acidosis (3) Diabetes mellitus type 2 Status: Acute Assessment: Patient is hypoglycemic. Probably due to decrease clearance of glimiperide. Will get BS q 2 hours. (4) Essential hypertension Status: Acute Assessment: stable at this time, will monitor VTE Assessment - RISK FACTOR SCORE VTE RISK FACTOR SCORES: AGE 40-60 YEARS, ANTICIPATED BED CONFINEMENT OR IMMOBILIZATION > 24 HOURS - RISK VTE MODERATE RISK: SCORE OF 2 (RISK PROXIMAL DVT 2-4%) PROPHYAXIS NEEDED
[2016-10-11] MEDS ORDERED: 0.9 % SODIUM CHLORIDE 1,000 ML IV SCH ×2 (18:30)
[2016-10-11 19:02] VITALS: BMI 80.4
[2016-10-11] MEDS ORDERED: cefTRIAXone SODIUM 1 GM VIAL ONE (19:47)
[2016-10-11] MEDS ORDERED: 0.9 % SODIUM CHLORIDE 50 ML IV ONE (19:48)
[2016-10-12] MEDS ORDERED: DEXTROSE 5 %-0.45 % NACL 1,000 ML IV ONE (03:39)
[2016-10-12 06:08] VITALS: BP 95/52
[2016-10-12] MEDS ORDERED: DEXTROSE 5 %-0.45 % NACL 1,000 ML IV SCH (06:10)
[2016-10-12] MEDS ORDERED: FUROSEMIDE 40 MG/4 ML VIAL IVP ONE (07:25)
--- NOTE | 2016-10-12 07:27 | Discharge Summary ---
Discharge Summary - Discharge Sumary History of Present Illness: Patient is a 56-year-old white female who states that over the last 36 hours she 's had very little urine output. Patient has recently been admitted to the hospital for congestive heart failure. Patient was seen in the ED for pedal edema and had her Lasix increased from 40 mg once a day to 40 mg twice a day. Patient states she's been having some mild mid abdominal pain and suprapubic pain. Patient denies any dysuria and a frequency her hematuria. Patient denies any fever or chills. Patient states that her blood sugars have been stable. Patient was seen in the ED and was noted to have very concentrated urine. It's worth found to be in a metabolic acidosis of the be probably related to lactic acidosis. This was felt to be probably related to the patient metformin and dehydration. Patient was subsequently admitted to the hospital for IV hydration and management of her diabetes. Patient was noted to be hypoglycemic on admission to the ED with a blood sugar 43. Home Medications: Ambulatory Orders Medication Instructions Recorded Ferrous Sulfate [Feosol] 325 mg PO 1100 09/13/16 Allergies/Adverse Reactions: Allergies Allergy/AdvReac Type Severity Reaction Status Date / Time No Known Allergies Allergy Verified 10/11/16 15:16 Patient Problems: Current Active Problems Problem Status Onset Acute renal failure (ARF) Acute CHF (congestive heart failure) Acute Diabetes mellitus type 2 Acute Essential hypertension Acute Metabolic acidosis Acute Discharge Summary: Patient was felt to be in acute renal failure. Possibly due to prerenal causes. Patient recently had her furosimide increased to 40mg twice a day with decrease oral intake. Patient is also on metformin for diabetes. it was felt that she was in some metablolic acidosis from metformin. Patient was hypoglycemic on admission with blood sugar of 40. BUN was Patient was started on IV fluids of D51/2NS and NS to try to rehydrate patient. Snyder cath was placed. Patient did not produce any urine during the night. Patient's blood sugars remained in the 60 -100 range. Was maintained on D5 1/2NS to keep blood sugars up. On admission patient was given 1 gm of Rocephin for possible infection. Patient' chemistry did not show any improvement during the night. Dr Nash was contacted and it was felt patient would possibly need dialysis and it was elected to transfer her to [facility]. - Final Diagnosis (1) Acute renal failure (ARF) Problems: not improved with hydration (2) Metabolic acidosis Problems: appears to be stable (3) Diabetes mellitus type 2 Problems: Having hypogycemia related to decrease clearance of glimiperide (4) Essential hypertension Problems: stable
[2016-10-12 07:34] LABS: BASOPHILS % 0.3 (0.0-1.5); EOSINOPHILS % 0.9 % (0.0-6.8); MEAN CORPUSCULAR HEMOGLOBIN 34.7 pg (28.0-34.0); MEAN CORPUSCULAR VOLUME 100.7 fl (80.0-100.0); NEUTROPHILS # 6.6 # k/uL (1.4-7.7)
[2016-10-12] MEDS ORDERED: cefTRIAXone SODIUM 1 GM in 0.9 % SODIUM CHLORIDE 50 ML IV ONE (09:00)
== END 2016-10-12 08:55 | disposition short-term general hospital (02) | DRG 683 ==
LOC: ED 14:36 → SOUTH 17:55
PROVIDERS: ADMIT Family Medicine; ATTEND Family Medicine
DX: N17.9 Acute kidney failure, unspecified (principal); E87.2 Acidosis; E11.9 Type 2 diabetes mellitus without complications; Z79.84 Long term (current) use of oral hypoglycemic drugs; I10 Essential (primary) hypertension
CPT/HCPCS: 36600; 80053; 81002; 82803; 85025; 87086; 87186; J0696; J1650; J1940; J7030; J7070; 99223; 99238; 99284; S1016; S5010

== ENCOUNTER 2016-11-03 11:05 | Outpatient (CLI) | payer BC ==
[2016-11-03 11:55] LABS: eGFR (African) > 60; eGFR (Non-African) > 60
== END 2016-11-03 11:06 ==
LOC: LAB 11:05
PROVIDERS: ATTEND Family Medicine
DX: E11.9 Type 2 diabetes mellitus without complications (principal)
CPT/HCPCS: 36415; 80053; 80061; 83036

== ENCOUNTER 2017-01-13 13:15 | Inpatient (IN) | payer BC ==
[2017-01-13 16:57] VITALS: BMI 55.3
--- NOTE | 2017-01-13 17:54 | History and Physical Report ---
History of Present Illnes - History of Present Illness Reason for Visit: debilitative condition post serous illness History of Present Illness: Patient is a 56-year-old white female who presented to the [facility] clinics complaining of increasing dyspnea, pedal edema, and lethargy. Patient was noted to have a 20 pound weight gain. Patient was found to be congestive heart failure. Patient was treated with IV Lasix therapy. An ultrasound was done to rule out DVTs. Prior to admission to the [facility] patient has fallen and sustained a significant hematoma and subsequent ecchymosis to the left flank lower extremity. Patient was started on physical therapy. It was felt that she would benefit from further skilled services. Patient was admitted to have services. - Past Medical History Cardiac: HTN, Other (chronic leg swelling). denies: CAD, Valve insufficiency, Pulmonary hypertension Heme/Onc: Other (Pancytopenia) Rheumatologic: Other (Psoriasis) Endocrine: Diabetes (IDDM) - Past Surgical History Past Surgical History: Total Knee Replacement, Other (gall stone removal) - Past Social History Smoke: No Alcohol: None Lives: With Family - Health Maintenance Health Maintenance: Cholesterol Pneumonia Vaccine: No Resuscitation Status: Resusciation Status Resuscitation Status Full Code - Unable to Obtain History Unable to Obtain: Yes Review of Systems - Review of Systems Constitutional: negative: Fever, Chills, Sweats Eyes: negative: pain, vision change ENT: negative: Ear Pain, Ear Discharge, Nose Pain, Nose Discharge, Nose Congestion, Mouth Pain, Mouth Swelling, Throat Swelling Respiratory: negative: Cough, Dry, Shortness of Breath, Hemoptysis, SOB with Excertion, Pleuritic Pain Cardiovascular: negative: Chest Pain, Palpitations, Edema Gastrointestinal: negative: Nausea, Vomiting, Abdominal Pain, Diarrhea, Constipation, Melena, Hematochezia Genitourinary: negative: Dysuria, Frequency, Incontinence Musculoskeletal: Shoulder Pain Skin: negative: Rash, Lesions, Jaundice Neurological: Weakness. negative: Numbness, Incoordination - Medications/Allergies Allergies/Adverse Reactions: Allergies Allergy/AdvReac Type Severity Reaction Status Date / Time No Known Allergies Allergy Verified 10/11/16 15:16 Current Inpatient Medications: Current Inpatient Medications Enoxaparin Sodium (Lovenox) 30 mg SQ QD [facility] Stop: 01/26/17 18:01 Ferrous Sulfate (Feosol) 325 mg PO 1100 [facility] Furosemide (Lasix) 40 mg PO DAILY [facility] Gabapentin (Neurontin) 100 mg PO TID [facility] Glimepiride (Amaryl) 2 mg PO DAILY [facility] Metformin HCl (Glucophage) 1,000 [place] [id number] [facility] Miscellaneous (Ranitidine Hcl [Ranitidine Hcl]) 150 mg PO BID [facility] Oxycodone/Acetaminophen (Percocet 5-325 Mg Tablet) each PO Q4-6 PRN PRN Reason: PAIN Potassium Chloride (Klor-Con M20) 20 meq PO DIRECTED [facility] Exam - Exam Vital Signs: Vital Signs (72 hours) 01/13/17 15:46 Temperature 98.9 F Respiratory 20 Rate Blood Pressure 105/52 [Left Arm] O2 Sat by Pulse 96 Oximetry General: Alert, Oriented to Person, Oriented to Place, Oriented to Time, Cooperative, Mild distress HEENT: Atraumatic, Mouth Mucous membr. moist/[place], Nose Mucous membr. moist/[place] Neck: Normal Range of Motion, Lymphadenopathy. No: Stridor, Rigidity Carotids: WML Thyroid: WNL Lungs: Clear to auscultation, Normal air movement, Speaks full Sentences, Respiratory Distress. No: Wheezes, Rales, Rhonchi Cardiovascular: Regular rate, Normal S1, Normal S2, No murmurs. No: Gallops, Rubs Abdomen: Normal bowel sounds, Soft, No tenderness, No hepatospenomegaly, No masses. No: Distended Integumentary: Normal, [place], Warm, Dry, Other (large echymotic area to the left trunk area) Extremities: No clubbing Neurological: Normal gait, Normal speech, Strength Equal Bilat, Normal tone, Sensation intact Psych/Mental Status: Mental status NL, Mood NL, Appropriate Affect, Intact Judgment Assessment/Plan - Assessment/Plan (1) Gait disturbance Status: Acute Current Visit: No Assessment: PT and OT consultation (2) CHF (congestive heart failure) Status: Acute Current Visit: No Comment: stable Plan: Continue with home meds, monitor weight (3) Diabetes mellitus type 2 Status: Acute Current Visit: No Plan: Continue home meds and monitor BS (4) Essential hypertension Status: Acute Current Visit: No Plan: Continue home meds and monitor BP VTE Assessment - RISK FACTOR SCORE VTE RISK FACTOR SCORES: AGE 40-60 YEARS, ANTICIPATED BED CONFINEMENT OR IMMOBILIZATION > 24 HOURS - RISK VTE MODERATE RISK: SCORE OF 2 (RISK PROXIMAL DVT 2-4%) PROPHYAXIS NEEDED
[2017-01-13] MEDS ORDERED: POTASSIUM CHLORIDE 20 MEQ TABLET.ER PO SCH (18:00)
[2017-01-13] MEDS: GABAPENTIN 100 MG CAPSULE PO SCH (18:26)
[2017-01-13] MEDS: ENOXAPARIN SODIUM 30 MG/0.3 ML DISP.SYRIN SQ SCH (18:26)
[2017-01-13] MEDS ORDERED: Non-Formulary 1 EACH (Ranitidine Hcl [Ranitidine Hcl] 150 MG) PO SCH (21:00)
[2017-01-14] MEDS ORDERED: GABAPENTIN 300 MG CAPSULE ONE (03:43)
[2017-01-14] MEDS: GABAPENTIN 100 MG CAPSULE PO SCH ×3 (08:06→18:08)
[2017-01-14] MEDS: GLIMEPIRIDE 2 MG TABLET PO SCH (08:07)
[2017-01-14] MEDS: FUROSEMIDE 40 MG TABLET PO SCH (08:08)
[2017-01-14] MEDS: FERROUS SULFATE 325 MG TABLET PO SCH (10:23)
[2017-01-14] MEDS ORDERED: POTASSIUM CHLORIDE 20 MEQ TABLET.ER ONE (13:00)
[2017-01-14] MEDS: PANTOPRAZOLE SODIUM 40 MG TABLET PO SCH (16:15)
[2017-01-14] MEDS: traMADol HCL 50 MG TABLET PO SCH (17:37)
[2017-01-14] MEDS: ENOXAPARIN SODIUM 30 MG/0.3 ML DISP.SYRIN SQ SCH (18:08)
[2017-01-14] MEDS: POTASSIUM CHLORIDE 20 MEQ TABLET.ER PO SCH (19:48)
[2017-01-15] MEDS: GABAPENTIN 100 MG CAPSULE PO SCH ×3 (12:22→17:39)
[2017-01-15] MEDS: PANTOPRAZOLE SODIUM 40 MG TABLET PO SCH ×2 (12:23→16:24)
[2017-01-15] MEDS: FUROSEMIDE 40 MG TABLET PO SCH (12:23)
[2017-01-15] MEDS: FERROUS SULFATE 325 MG TABLET PO SCH (12:23)
[2017-01-15] MEDS: GLIMEPIRIDE 2 MG TABLET PO SCH (12:23)
[2017-01-15] MEDS: POTASSIUM CHLORIDE 20 MEQ TABLET.ER PO SCH ×2 (12:24→20:16)
[2017-01-15] MEDS: traMADol HCL 50 MG TABLET PO SCH ×3 (12:24→17:40)
[2017-01-15] MEDS: ENOXAPARIN SODIUM 30 MG/0.3 ML DISP.SYRIN SQ SCH (17:40)
[2017-01-16] MEDS: traMADol HCL 50 MG TABLET PO SCH ×5 (00:30→23:58)
[2017-01-16] MEDS: GLIMEPIRIDE 2 MG TABLET PO SCH (06:19)
[2017-01-16] MEDS: PANTOPRAZOLE SODIUM 40 MG TABLET PO SCH ×2 (06:20→18:06)
[2017-01-16 06:56] LABS: EOSINOPHILS % 7.4 % (0.0-6.8); MEAN CORPUSCULAR HEMOGLOBIN 33.7 pg (28.0-34.0); MEAN CORPUSCULAR VOLUME 99.3 fl (80.0-100.0); MONOCYTES % 10.8 % (0.0-11.0); NEUTROPHILS # 1.1 # k/uL (1.4-7.7)
[2017-01-16 07:41] LABS: eGFR (African) > 60; eGFR (Non-African) > 60
[2017-01-16] MEDS: GABAPENTIN 100 MG CAPSULE PO SCH ×3 (08:48→18:02)
[2017-01-16] MEDS: FUROSEMIDE 40 MG TABLET PO SCH (08:49)
[2017-01-16] MEDS: POTASSIUM CHLORIDE 20 MEQ TABLET.ER PO SCH ×3 (08:49→19:01)
[2017-01-16] MEDS: FERROUS SULFATE 325 MG TABLET PO SCH (11:25)
[2017-01-16] MEDS: ENOXAPARIN SODIUM 30 MG/0.3 ML DISP.SYRIN SQ SCH (18:01)
[2017-01-17] MEDS: PANTOPRAZOLE SODIUM 40 MG TABLET PO SCH ×2 (06:15→16:54)
[2017-01-17] MEDS: traMADol HCL 50 MG TABLET PO SCH ×3 (06:16→17:01)
[2017-01-17] MEDS: GABAPENTIN 100 MG CAPSULE PO SCH ×3 (09:18→17:00)
[2017-01-17] MEDS: GLIMEPIRIDE 2 MG TABLET PO SCH (09:19)
[2017-01-17] MEDS: POTASSIUM CHLORIDE 20 MEQ TABLET.ER PO SCH ×2 (09:20→16:59)
[2017-01-17] MEDS: FUROSEMIDE 40 MG TABLET PO SCH (11:00)
[2017-01-17] MEDS: FERROUS SULFATE 325 MG TABLET PO SCH (12:05)
[2017-01-17] MEDS: ENOXAPARIN SODIUM 30 MG/0.3 ML DISP.SYRIN SQ SCH (16:53)
[2017-01-18] MEDS: traMADol HCL 50 MG TABLET PO SCH ×4 (01:08→17:06)
[2017-01-18] MEDS: PANTOPRAZOLE SODIUM 40 MG TABLET PO SCH ×2 (05:31→17:05)
[2017-01-18] MEDS: oxyCODONE/ACETAMINOPHEN 5/325 TABLET PO PRN ×2 (08:36→15:27)
[2017-01-18] MEDS: GABAPENTIN 100 MG CAPSULE PO SCH ×3 (08:37→17:04)
[2017-01-18] MEDS: GLIMEPIRIDE 2 MG TABLET PO SCH (08:38)
[2017-01-18] MEDS: FUROSEMIDE 40 MG TABLET PO SCH (08:39)
[2017-01-18] MEDS: POTASSIUM CHLORIDE 20 MEQ TABLET.ER PO SCH ×2 (08:40→17:06)
[2017-01-18] MEDS: FERROUS SULFATE 325 MG TABLET PO SCH (11:44)
--- NOTE | 2017-01-18 16:12 | Inpatient Progress Note ---
Subjective - Required Recertification Statement I anticipate X number of days because-include discharge plan: 5 days - Review of Systems Events since last encounter: Patient seems to be doing well at this time. Bruising is clearing, pain is improving. Seems to be ambulating better. Has not had any falls. BS have been stable Cardiovascular: Denies: Chest Pain Gastrointestinal: Denies: Nausea, Vomiting, Abdominal Pain, Diarrhea, Constipation Genitourinary: Denies: Dysuria Objective - Exam Vitals and I&O: Vital Signs Temp 97.2 F L 01/18/17 09:00 Pulse 83 01/18/17 09:00 Resp 20 01/18/17 09:00 BP 100/46 01/18/17 09:00 Pulse Ox 98 01/18/17 09:00 Intake & Output 01/17/17 01/18/17 01/18/17 23:59 11:59 23:59 Intake Total 420 360 740 Balance 420 360 740 Intake: Oral 420 360 740 Other: Voiding Method Bedside Commode Bedside Commode # Voids 3 3 # Bowel Movements 1 General: Alert, Oriented to Person, Oriented to Place, Oriented to Time, Cooperative, No acute distress Neck: Supple, No JVD Lungs: Clear to auscultation, Normal air movement. No: Wheezes, Rales, Rhonchi Cardiovascular: Regular rate, Normal S1, Normal S2 Abdomen: Normal bowel sounds, Soft, No tenderness Skin: Other (large echymotic areas are clearing, ) Neurological: Normal speech, Sensation intact. No: Normal gait Psych/Mental Status: Mental status NL, Mood NL, Appropriate Affect, Intact Judgment - Results Results: Laboratory Results WBC 2.40 K/ul (4.00-12.00) L 01/16/17 05:45 RBC 2.60 M/ul (3.90-5.20) L 01/16/17 05:45 Hgb 8.8 g/dL (12.0-16.0) L 01/16/17 05:45 Hct 25.8 % (34.5-46.5) L 01/16/17 05:45 MCV 99.3 fl (80.0-100.0) 01/16/17 05:45 MCH 33.7 pg (28.0-34.0) 01/16/17 05:45 MCHC 34.0 g/dL (30.0-36.0) 01/16/17 05:45 RDW 14.9 % (11.3-14.3) H 01/16/17 05:45 Plt Count 66 K/mm3 (130-400) L 01/16/17 05:45 Neut % (Auto) 44.1 % (39.0-79.0) 01/16/17 05:45 Lymph % (Auto) 34.1 % (16.0-50.0) 01/16/17 05:45 [place] % (Auto) 10.8 % (0.0-11.0) 01/16/17 05:45 Eos % (Auto) 7.4 % (0.0-6.8) H 01/16/17 05:45 Baso % (Auto) 1.0 (0.0-1.5) 01/16/17 05:45 Neut # (Auto) 1.1 # k/uL (1.4-7.7) L 01/16/17 05:45 Lymph # (Auto) 0.8 # k/uL (0.6-4.0) 01/16/17 05:45 [place] # (Auto) 0.3 # k/uL (0.0-0.9) 01/16/17 05:45 Eos # (Auto) 0.2 # k/uL (0.0-0.6) 01/16/17 05:45 Baso # (Auto) 0.0 # k/uL (0.0-0.5) 01/16/17 05:45 Reactive Lymphs % 2.6 % (0.0-5.0) 01/16/17 05:45 Reactive Lymphs # 0.1 # k/uL (0.0-0.8) 01/16/17 05:45 Sodium 131 mmol/L (137-145) L 01/16/17 05:45 Potassium 4.1 mmol/L (3.5-5.1) 01/16/17 05:45 Chloride 101 mmol/L (98-107) 01/16/17 05:45 Carbon Dioxide 27 mmol/L (22-30) 01/16/17 05:45 BUN 16 mg/dL (7-17) 01/16/17 05:45 Creatinine 0.70 mg/dL (0.52-1.04) 01/16/17 05:45 Estimated Creat Clear 175 01/16/17 05:45 Est GFR ( Amer) > 60 (60-) 01/16/17 05:45 Est GFR (Non-Af Amer) > 60 (60-) 01/16/17 05:45 Glucose 60 mg/dL (74-106) L 01/16/17 05:45 Calcium 8.5 mg/dL (8.4-10.2) 01/16/17 05:45 Total Bilirubin 1.9 mg/dL (0.2-1.3) H 01/16/17 05:45 AST 46 U/L (15-46) 01/16/17 05:45 ALT 28 U/L (13-69) 01/16/17 05:45 Alkaline Phosphatase 185 U/L (38-126) H 01/16/17 05:45 Total Protein 5.8 g/dL (6.3-8.2) L 01/16/17 05:45 Albumin 2.4 g/dL (3.5-5.0) L 01/16/17 05:45 Assessment/Plan - Assessment/Plan (1) CHF (congestive heart failure) Status: Acute Current Visit: No Comment: stable (2) Diabetes mellitus type 2 Status: Acute Current Visit: No Assessment: stable (3) Essential hypertension Status: Acute Current Visit: No Assessment: stable (4) Gait disturbance Status: Acute Current Visit: No Assessment: improved
[2017-01-18] MEDS: ENOXAPARIN SODIUM 30 MG/0.3 ML DISP.SYRIN SQ SCH (18:03)
[2017-01-19] MEDS: traMADol HCL 50 MG TABLET PO SCH ×4 (00:40→18:27)
[2017-01-19] MEDS: GLIMEPIRIDE 2 MG TABLET PO SCH ×2 (06:11→07:36)
[2017-01-19] MEDS: PANTOPRAZOLE SODIUM 40 MG TABLET PO SCH ×2 (06:13→16:34)
[2017-01-19] MEDS: FUROSEMIDE 40 MG TABLET PO SCH (07:36)
[2017-01-19] MEDS: GABAPENTIN 100 MG CAPSULE PO SCH ×3 (07:36→18:27)
[2017-01-19] MEDS: POTASSIUM CHLORIDE 20 MEQ TABLET.ER PO SCH ×2 (07:37→18:27)
[2017-01-19] MEDS: oxyCODONE/ACETAMINOPHEN 5/325 TABLET PO PRN ×2 (09:48→20:09)
[2017-01-19] MEDS: FERROUS SULFATE 325 MG TABLET PO SCH (11:43)
[2017-01-19] MEDS: ENOXAPARIN SODIUM 30 MG/0.3 ML DISP.SYRIN SQ SCH (18:26)
[2017-01-20] MEDS: traMADol HCL 50 MG TABLET PO SCH ×5 (06:02→23:50)
[2017-01-20] MEDS: PANTOPRAZOLE SODIUM 40 MG TABLET PO SCH ×2 (06:03→16:20)
[2017-01-20] MEDS: oxyCODONE/ACETAMINOPHEN 5/325 TABLET PO PRN ×2 (08:33→21:36)
[2017-01-20] MEDS: GABAPENTIN 100 MG CAPSULE PO SCH ×3 (08:34→17:50)
[2017-01-20] MEDS: GLIMEPIRIDE 2 MG TABLET PO SCH (08:34)
[2017-01-20] MEDS: FUROSEMIDE 40 MG TABLET PO SCH (08:35)
[2017-01-20] MEDS: POTASSIUM CHLORIDE 20 MEQ TABLET.ER PO SCH ×2 (08:35→17:50)
[2017-01-20] MEDS: FERROUS SULFATE 325 MG TABLET PO SCH (11:03)
[2017-01-20] MEDS: ENOXAPARIN SODIUM 30 MG/0.3 ML DISP.SYRIN SQ SCH (17:51)
[2017-01-21] MEDS: traMADol HCL 50 MG TABLET PO SCH ×3 (06:06→18:20)
[2017-01-21] MEDS: PANTOPRAZOLE SODIUM 40 MG TABLET PO SCH ×2 (06:06→16:35)
[2017-01-21] MEDS: FUROSEMIDE 40 MG TABLET PO SCH (08:41)
[2017-01-21] MEDS: GABAPENTIN 100 MG CAPSULE PO SCH ×3 (08:41→18:20)
[2017-01-21] MEDS: POTASSIUM CHLORIDE 20 MEQ TABLET.ER PO SCH ×2 (08:42→18:20)
[2017-01-21] MEDS: GLIMEPIRIDE 2 MG TABLET PO SCH (08:42)
[2017-01-21] MEDS: FERROUS SULFATE 325 MG TABLET PO SCH (11:15)
[2017-01-21] MEDS: ENOXAPARIN SODIUM 30 MG/0.3 ML DISP.SYRIN SQ SCH (18:20)
[2017-01-21] MEDS: oxyCODONE/ACETAMINOPHEN 5/325 TABLET PO PRN (22:23)
[2017-01-22] MEDS: traMADol HCL 50 MG TABLET PO SCH ×4 (01:20→17:05)
[2017-01-22] MEDS: PANTOPRAZOLE SODIUM 40 MG TABLET PO SCH ×2 (05:47→17:05)
[2017-01-22] MEDS: GABAPENTIN 100 MG CAPSULE PO SCH ×3 (08:21→17:04)
[2017-01-22] MEDS: GLIMEPIRIDE 2 MG TABLET PO SCH (08:22)
[2017-01-22] MEDS: FUROSEMIDE 40 MG TABLET PO SCH (08:22)
[2017-01-22] MEDS: POTASSIUM CHLORIDE 20 MEQ TABLET.ER PO SCH ×2 (08:23→17:06)
[2017-01-22] MEDS: FERROUS SULFATE 325 MG TABLET PO SCH (11:31)
[2017-01-22] MEDS: ENOXAPARIN SODIUM 30 MG/0.3 ML DISP.SYRIN SQ SCH (17:04)
[2017-01-23] MEDS: traMADol HCL 50 MG TABLET PO SCH ×4 (00:53→17:59)
[2017-01-23] MEDS: PANTOPRAZOLE SODIUM 40 MG TABLET PO SCH ×2 (05:47→17:59)
[2017-01-23] MEDS: GABAPENTIN 100 MG CAPSULE PO SCH ×3 (07:31→17:58)
[2017-01-23] MEDS: POTASSIUM CHLORIDE 20 MEQ TABLET.ER PO SCH ×2 (07:32→17:58)
[2017-01-23] MEDS: FUROSEMIDE 40 MG TABLET PO SCH (07:32)
[2017-01-23] MEDS: GLIMEPIRIDE 2 MG TABLET PO SCH (07:32)
[2017-01-23] MEDS: FERROUS SULFATE 325 MG TABLET PO SCH (11:29)
[2017-01-23] MEDS: ENOXAPARIN SODIUM 30 MG/0.3 ML DISP.SYRIN SQ SCH (17:57)
[2017-01-23] MEDS: oxyCODONE/ACETAMINOPHEN 5/325 TABLET PO PRN (20:11)
[2017-01-24] MEDS: traMADol HCL 50 MG TABLET PO SCH ×2 (00:39→06:02)
[2017-01-24] MEDS: PANTOPRAZOLE SODIUM 40 MG TABLET PO SCH (06:02)
[2017-01-24] MEDS: GLIMEPIRIDE 2 MG TABLET PO SCH (07:53)
[2017-01-24] MEDS: FUROSEMIDE 40 MG TABLET PO SCH (07:53)
[2017-01-24] MEDS: GABAPENTIN 100 MG CAPSULE PO SCH (07:53)
[2017-01-24 07:54] VITALS: BP 106/53
[2017-01-24] MEDS: POTASSIUM CHLORIDE 20 MEQ TABLET.ER PO SCH (07:54)
--- NOTE | 2017-01-24 10:31 | Discharge Summary ---
Discharge Summary - Discharge Sumary History of Present Illness: Patient is a 56-year-old white female who presented to the [facility] clinics complaining of increasing dyspnea, pedal edema, and lethargy. Patient was noted to have a 20 pound weight gain. Patient was found to be congestive heart failure. Patient was treated with IV Lasix therapy. An ultrasound was done to rule out DVTs. Prior to admission to the [facility] patient has fallen and sustained a significant hematoma and subsequent ecchymosis to the left flank lower extremity. Patient was started on physical therapy. It was felt that she would benefit from further skilled services. Patient was admitted to have services. Home Medications: Ambulatory Orders Medication Instructions Recorded Ferrous Sulfate [Feosol] 325 mg PO 1100 09/13/16 Furosemide [Lasix] 40 mg PO DAILY #30 tablet 01/24/17 Allergies/Adverse Reactions: Allergies Allergy/AdvReac Type Severity Reaction Status Date / Time No Known Allergies Allergy Verified 10/11/16 15:16 Discharge Summary: Patient did well during her SNF stay. Patient congestive heart failure remains stable. Patient did not complain of any increasing shortness of breath dyspnea or chest pain. Patient pedal edema remains stable. Patient was maintained on her discharge medications from the [facility]. Patient diabetes mellitus remains stable. Patient did have some lower blood sugars in the 60s but did not have any hypoglycemic symptoms. Patient blood pressure remains stable on her home medications. Patient was started on physical and occupational therapy. Patient is highly motivated to participate. Patient ambulatory ability improved her steadiness with her gait improved. At the time of discharge it was felt that the patient states to be discharged home. Patient refused any home health therapy or outpatient therapy. - Final Diagnosis (1) Gait disturbance Problems: improved (2) CHF (congestive heart failure) Problems: stable (3) Diabetes mellitus type 2 Problems: stable (4) Essential hypertension Problems: stable
[2017-01-24] MEDS: FERROUS SULFATE 325 MG TABLET PO SCH (10:33)
== END 2017-01-24 11:15 | disposition home or self-care (01) | DRG 93 ==
LOC: SOUTH 13:15
PROVIDERS: ADMIT Family Medicine; ATTEND Family Medicine
DX: R26.9 Unspecified abnormalities of gait and mobility (principal); I50.9 Heart failure, unspecified; I10 Essential (primary) hypertension; E11.9 Type 2 diabetes mellitus without complications
CPT/HCPCS: 36415; 80053; 85025; J1650; A9270; A9270-GY

== ENCOUNTER 2017-02-09 09:36 | Outpatient (CLI) | payer BC ==
[2017-02-09 11:04] LABS: eGFR (African) > 60; eGFR (Non-African) > 60
== END 2017-02-09 09:37 ==
LOC: LAB 09:36
PROVIDERS: ATTEND Family Medicine
DX: E11.9 Type 2 diabetes mellitus without complications (principal)
CPT/HCPCS: 36415; 80053; 83036

== ENCOUNTER 2017-05-12 10:53 | Outpatient (CLI) | payer BC ==
[2017-05-12 11:32] LABS: eGFR (African) > 60; eGFR (Non-African) > 60
== END 2017-05-12 10:54 ==
LOC: LAB 10:53
PROVIDERS: ATTEND Family Medicine
DX: E11.9 Type 2 diabetes mellitus without complications (principal); I50.9 Heart failure, unspecified
CPT/HCPCS: 36415; 80053; 82043; 83036; 83880

== ENCOUNTER 2017-09-21 09:20 | Inpatient (IN) | payer BC ==
[2017-09-21] MEDS ORDERED: PNEUMOCOCCAL 23-VAL IM ONE (10:39)
[2017-09-21 10:40] VITALS: BMI 43.7
[2017-09-21] MEDS ORDERED: POTASSIUM CHLORIDE 20 MEQ TABLET.ER PO SCH (11:00)
[2017-09-21 11:03] LABS: BASOPHILS % 0.4 (0.0-1.5); EOSINOPHILS % 4.7 % (0.0-6.8); MEAN CORPUSCULAR HEMOGLOBIN 32.9 pg (28.0-34.0); MEAN CORPUSCULAR VOLUME 104.1 fl (80.0-100.0); MONOCYTES % 9.7 % (0.0-11.0); NEUTROPHILS # 1.4 # k/uL (1.4-7.7)
[2017-09-21 11:27] LABS: eGFR (African) > 60; eGFR (Non-African) > 60
--- NOTE | 2017-09-21 13:22 | History and Physical Report ---
History of Present Illnes - History of Present Illness Reason for Visit: pedal edema History of Present Illness: 57yo white female was has some chronic pedal edema. Over the last 3 weeks the edema has been getting worse. We have tried to increase her lasix without much improvement. Have adds zaroxolyn again without much improvement. Patient states that she is having a hard time getting around because of the swelling. Her blood sugars have aster higher. She has started to have some orthopnic symptoms. She denies any chest pain or pressure feeling. Because of the presisitent edema and new orthopnic symptoms and cough will admit for IV lasix. Believe that she may be in some CHF. - Past Medical History Cardiac: HTN, Other (chronic leg swelling). denies: CAD, Valve insufficiency, Pulmonary hypertension Heme/Onc: Other (Pancytopenia) Rheumatologic: Other (Psoriasis) Endocrine: Diabetes (IDDM) - Past Surgical History Past Surgical History: Total Knee Replacement, Other (gall stone removal) - Past Social History Smoke: No Alcohol: None Lives: With Family - Health Maintenance Health Maintenance: Cholesterol Pneumonia Vaccine: No Resuscitation Status: Resusciation Status Resuscitation Status Full Code Review of Systems - Review of Systems Constitutional: Weakness. negative: Fever, Chills Eyes: negative: pain, vision change ENT: negative: Ear Pain, Ear Discharge, Nose Pain, Nose Discharge, Nose Congestion, Mouth Pain, Mouth Swelling Respiratory: Cough, Dry, SOB with Excertion. negative: Shortness of Breath, Hemoptysis, Pleuritic Pain, Sputum, Wheezing Cardiovascular: Paroxysmal Noc. Dyspnea, Edema. negative: Chest Pain, Palpitations, Orthopnea Gastrointestinal: negative: Nausea, Vomiting, Abdominal Pain, Diarrhea, Constipation, Melena, Hematochezia Genitourinary: negative: Dysuria, Frequency, Incontinence, Hematuria Musculoskeletal: Neck Pain, Shoulder Pain, Back Pain Skin: negative: Rash, Lesions Neurological: Weakness (generalized). negative: Numbness, Incoordination, Change in Speech, Confusion, Seizures - Medications/Allergies Allergies/Adverse Reactions: Allergies Allergy/AdvReac Type Severity Reaction Status Date / Time No Known Allergies Allergy Verified 10/11/16 15:16 Current Inpatient Medications: Current Inpatient Medications Enoxaparin Sodium (Lovenox) 40 mg SQ QD [facility] Stop: 10/05/17 10:59 Ferrous Sulfate (Feosol) 325 mg PO [id number] [facility] Furosemide (Lasix) 40 mg IVP 714 [facility] Gabapentin (Neurontin) 100 mg PO TID [facility] Metformin HCl (Glucophage) [place] [id number] [facility] Miscellaneous (Chem Sticks) 1 each CHEMQID [facility] Last Admin: 09/21/17 11:20 Dose: 1 each Pantoprazole Sodium (Protonix) 40 mg PO 0700 [facility] Pneumococcal Polyvalent Vaccine (Pneumovax 23) 25 mcg IM 1T ONE Stop: 09/21/17 10:40 Potassium Chloride (Klor-Con M20) 20 meq PO DIRECTED [facility] Sodium Chloride (Normal Saline Flush) 3 ml IV BID [facility] Tramadol HCl (Ultram) 100 mg PO Q6H PRN PRN Reason: PAIN Exam - Exam Vital Signs: Vital Signs (72 hours) 09/21/17 09:57 Temperature 97.6 F Pulse Rate [ 73 Apical] Respiratory 18 Rate Blood Pressure 122/58 [Right Arm] O2 Sat by Pulse 98 Oximetry General: Alert, Oriented to Person, Oriented to Place, Oriented to Time, Cooperative HEENT: Atraumatic, PERRLA, EOMI, Mouth Mucous membr. moist/[place], Nose Mucous membr. moist/[place] Neck: Normal Range of Motion. No: Lymphadenopathy Carotids: WNL Thyroid: WNL Lungs: Normal air movement, Speaks full Sentences, Rales (bases bilaterally). No: Wheezes, Rhonchi Cardiovascular: Regular rate, Normal S1, Normal S2, No murmurs. No: Gallops, Rubs Abdomen: Normal bowel sounds, Soft, No tenderness, No hepatospenomegaly, No masses Integumentary: Normal, [place], Warm, Dry Extremities: No clubbing, No cyanosis, Other Neurological: Normal speech, Strength Equal Bilat, Normal tone, Sensation intact , Cranial nerves 3-12 NL, Reflexes 2+ Psych/Mental Status: Mental status NL, Mood NL, Appropriate Affect, Intact Judgment - Laboratory Results Laboratory Results: Laboratory Results 09/21/17 09/21/17 09/21/17 10:55 10:55 10:55 WBC 2.40 L RBC 3.07 L Hgb 10.1 L Hct 32.0 L MCV 104.1 H MCH 32.9 MCHC 31.6 RDW 15.1 H Plt Count 68 L Neut % (Auto) 58.8 Lymph % (Auto) 23.5 [place] % (Auto) 9.7 Eos % (Auto) 4.7 Baso % (Auto) 0.4 Neut # (Auto) 1.4 Lymph # (Auto) 0.6 [place] # (Auto) 0.2 Eos # (Auto) 0.1 Baso # (Auto) 0.0 Reactive Lymphs % 3.0 Reactive Lymphs # 0.1 Sodium 139 Potassium 3.8 Chloride 101 Carbon Dioxide 30 BUN 31 H Creatinine 1.30 H Estimated Creat Clear 109 Est GFR ( Amer) > 60 Est GFR (Non-Af Amer) > 60 Glucose 76 Calcium 9.3 Total Bilirubin 4.1 H AST 64 H ALT 27 Alkaline Phosphatase 202 H Troponin I < 0.03 L NT-Pro-B Natriuret Pep 646.8 H Total Protein 7.1 Albumin 3.0 L Assessment/Plan - Assessment/Plan (1) Bilateral leg edema Status: Acute (2) CHF (congestive heart failure) Status: Acute Qualifiers: Heart failure type: diastolic Heart failure chronicity: acute Qualified Code(s): I50.31 - Acute diastolic (congestive) heart failure Comment: stable (3) Diabetes mellitus type 2 Status: Acute (4) Essential hypertension Status: Acute (5) Gait disturbance Status: Acute VTE Assessment - RISK FACTOR SCORE VTE RISK FACTOR SCORES: AGE 40-60 YEARS, ANTICIPATED BED CONFINEMENT OR IMMOBILIZATION > 24 HOURS - RISK VTE MODERATE RISK: SCORE OF 2 (RISK PROXIMAL DVT 2-4%) PROPHYAXIS NEEDED
[2017-09-21] MEDS: FUROSEMIDE 40 MG/4 ML VIAL IVP SCH ×2 (13:44→13:45)
[2017-09-21] MEDS: ENOXAPARIN SODIUM 40 MG/0.4 ML DISP.SYRIN SQ SCH (13:44)
[2017-09-21] MEDS: SALINE FLUSH 10 ML DISP.SYRIN IV SCH ×2 (13:44→19:41)
[2017-09-21] MEDS: FERROUS SULFATE 325 MG TABLET PO SCH ×2 (13:44→18:30)
[2017-09-21] MEDS: GABAPENTIN 100 MG CAPSULE PO SCH ×2 (13:45→16:34)
[2017-09-21] MEDS ORDERED: NYSTATIN POWDER BOTTLE TP SCH (16:00)
[2017-09-21] MEDS: NYSTATIN POWDER BOTTLE TP SCH (19:42)
--- NOTE | 2017-09-21 19:50 | Diagnostic Imaging Report ---
[facility] [address] [facility].[address] [address] Report Submission Date: September 21, 2017 11:54:04 AM CDT Patient Study Name: TIM HIDALGO Date: September 21, 2017 11:19:23 AM CDT Modality Type: DX Gender: F Description: CHEST : 56 Institution: [facility] Physician: MARTHA ALEXANDRE/MED SURG Examination: PA and lateral chest. History: CXR, PT COMPLAINS OF EXTREMITY/ ABD SWELLING, QUESTIONABLE CHF (Hx) Findings: PA lateral chest demonstrate a normal cardiac and mediastinal silhouette. Mild parenchymal interstitial fullness. Mildly prominent hilar vasculature. New blunting of the right costophrenic margin and posterior sulci. Stable right midlung granuloma. Articular degenerative changes. Impression: Prominent interstitium with new right base effusion - congestive failure. Electronically signed on September 21, 2017 11:54:04 AM CDT by: Jeff Cleary Comparison exam: 11 Sep 2016 Addendum electronically signed by Jeff Cleary on September 21, 2017 11:54:42 AM CDT MTDD
[2017-09-21] MEDS: traMADol HCL 50 MG TABLET PO PRN (22:23)
[2017-09-22] MEDS: PANTOPRAZOLE SODIUM 40 MG TABLET PO SCH (07:23)
[2017-09-22] MEDS: FUROSEMIDE 40 MG/4 ML VIAL IVP SCH ×2 (08:35→15:58)
--- NOTE | 2017-09-22 08:57 | Inpatient Progress Note ---
Subjective - Required Recertification Statement I anticipate X number of days because-include discharge plan: 1 day - Review of Systems Events since last encounter: Rhonda states that she is feeling some better however is not able to move her legs well L>R eems to be effected. Swelling seems to be improved some. Cough is improved some. Objective - Exam Vitals and I&O: Vital Signs Temp 98 F 09/22/17 05:18 Pulse 75 09/22/17 05:18 Resp 16 09/22/17 05:18 BP 122/68 09/22/17 05:18 Pulse Ox 98 09/22/17 05:18 Intake & Output 09/21/17 09/21/17 09/22/17 11:59 23:59 11:59 Intake Total 14 1320 410 Balance 14 1320 410 Weight 126.734 kg Intake: IV 14 0 Right Forearm 14 0 Oral 1320 410 Other: Voiding Method Toilet Bedside Commode # Voids 2 2 General: Alert, Oriented to Person, Oriented to Place, Oriented to Time, Cooperative Neck: Supple, No JVD, No thyromegaly Lungs: Clear to auscultation, Normal air movement, Speaks full Sentences Cardiovascular: Regular rate, Normal S1, Normal S2, No murmurs Abdomen: Normal bowel sounds, Soft, No tenderness, No hepatospenomegaly, No masses, Distended (mild) Skin: Normal, [place], Warm, Dry Neurological: Normal speech, Strength Equal Bilat, Sensation intact, Cranial nerves 3-12 NL, Reflexes 2+. No: Normal gait Psych/Mental Status: Mental status NL, Mood NL - Results Results: Laboratory Results WBC 2.40 K/ul (4.00-12.00) L 09/21/17 10:55 RBC 3.07 M/ul (3.90-5.20) L 09/21/17 10:55 Hgb 10.1 g/dL (12.0-16.0) L 09/21/17 10:55 Hct 32.0 % (34.5-46.5) L 09/21/17 10:55 MCV 104.1 fl (80.0-100.0) H 09/21/17 10:55 MCH 32.9 pg (28.0-34.0) 09/21/17 10:55 MCHC 31.6 g/dL (30.0-36.0) 09/21/17 10:55 RDW 15.1 % (11.3-14.3) H 09/21/17 10:55 Plt Count 68 K/mm3 (130-400) L 09/21/17 10:55 Neut % (Auto) 58.8 % (39.0-79.0) 09/21/17 10:55 Lymph % (Auto) 23.5 % (16.0-50.0) 09/21/17 10:55 [place] % (Auto) 9.7 % (0.0-11.0) 09/21/17 10:55 Eos % (Auto) 4.7 % (0.0-6.8) 09/21/17 10:55 Baso % (Auto) 0.4 (0.0-1.5) 09/21/17 10:55 Neut # (Auto) 1.4 # k/uL (1.4-7.7) 09/21/17 10:55 Lymph # (Auto) 0.6 # k/uL (0.6-4.0) 09/21/17 10:55 [place] # (Auto) 0.2 # k/uL (0.0-0.9) 09/21/17 10:55 Eos # (Auto) 0.1 # k/uL (0.0-0.6) 09/21/17 10:55 Baso # (Auto) 0.0 # k/uL (0.0-0.5) 09/21/17 10:55 Reactive Lymphs % 3.0 % (0.0-5.0) 09/21/17 10:55 Reactive Lymphs # 0.1 # k/uL (0.0-0.8) 09/21/17 10:55 Sodium 139 mmol/L (136-145) 09/21/17 10:55 Potassium 3.8 mmol/L (3.5-5.1) 09/21/17 10:55 Chloride 101 mmol/L (98-107) 09/21/17 10:55 Carbon Dioxide 30 mmol/L (22-30) 09/21/17 10:55 BUN 31 mg/dL (7-17) H 09/21/17 10:55 Creatinine 1.30 mg/dL (0.52-1.04) H 09/21/17 10:55 Estimated Creat Clear 109 09/21/17 10:55 Est GFR ( Amer) > 60 (60-) 09/21/17 10:55 Est GFR (Non-Af Amer) > 60 (60-) 09/21/17 10:55 Glucose 76 mg/dL (74-106) 09/21/17 10:55 Calcium 9.3 mg/dL (8.4-10.2) 09/21/17 10:55 Total Bilirubin 4.1 mg/dL (0.2-1.3) H 09/21/17 10:55 AST 64 U/L (15-46) H 09/21/17 10:55 ALT 27 U/L (13-69) 09/21/17 10:55 Alkaline Phosphatase 202 U/L (38-126) H 09/21/17 10:55 Troponin I < 0.03 ng/mL (0.03-0.06) L 09/21/17 10:55 NT-Pro-B Natriuret Pep 646.8 pg/mL (15.0-125.0) H 09/21/17 10:55 Total Protein 7.1 g/dL (6.3-8.2) 09/21/17 10:55 Albumin 3.0 g/dL (3.5-5.0) L 09/21/17 10:55 Assessment/Plan - Assessment/Plan (1) Bilateral leg edema Status: Acute (2) CHF (congestive heart failure) Status: Acute Comment: stable (3) Diabetes mellitus type 2 Status: Acute (4) Essential hypertension Status: Acute (5) Gait disturbance Status: Acute
[2017-09-22] MEDS: POTASSIUM CHLORIDE 20 MEQ TABLET.ER PO SCH ×2 (09:26→20:13)
[2017-09-22] MEDS: GABAPENTIN 100 MG CAPSULE PO SCH ×3 (09:26→17:46)
[2017-09-22] MEDS: SALINE FLUSH 10 ML DISP.SYRIN IV SCH ×2 (09:28→20:13)
[2017-09-22] MEDS: NYSTATIN POWDER BOTTLE TP SCH ×2 (09:28→20:13)
[2017-09-22 10:07] LABS: eGFR (African) > 60; eGFR (Non-African) > 60
[2017-09-22] MEDS: ENOXAPARIN SODIUM 40 MG/0.4 ML DISP.SYRIN SQ SCH (10:40)
[2017-09-22] MEDS: FERROUS SULFATE 325 MG TABLET PO SCH ×2 (10:40→18:18)
[2017-09-22] MEDS: traMADol HCL 50 MG TABLET PO PRN (22:13)
[2017-09-23 07:01] LABS: eGFR (African) > 60; eGFR (Non-African) > 60
[2017-09-23] MEDS: PANTOPRAZOLE SODIUM 40 MG TABLET PO SCH (07:31)
[2017-09-23] MEDS: FUROSEMIDE 40 MG/4 ML VIAL IVP SCH ×2 (07:31→13:26)
[2017-09-23] MEDS: SALINE FLUSH 10 ML DISP.SYRIN IV SCH ×3 (07:32→20:17)
--- NOTE | 2017-09-23 08:18 | Diagnostic Imaging Report ---
GISELE QUEZADA [id number] [facility] [address] [address] Report Submission Date: Sep 23, 2017 8:13:08 AM CDT Patient Study Name: TIM HIDALGO Date: Sep 23, 2017 7:48:15 AM CDT Modality Type: CT\SR Gender: F Description: CT BRAIN W/O CONTRAST : 56 Institution: Physician: GISELE QUEZADA CT head without contrast History: Stroke like symptoms Technique: Images through the brain were obtained without contrast. Findings: No prior examinations available for comparison at the time of interpretation. There is no mass, midline shift, hydrocephalus or hemorrhage. The ventricles are normal. There is lucency in the periventricular white matter , consistent with microvascular ischemic change. No extraaxial fluid collection is identified. Impression: No acute intracranial process. Small vessel disease. Electronically signed on Sep 23, 2017 8:13:08 AM CDT by: Abhijeet BHATT
[2017-09-23] MEDS: GABAPENTIN 100 MG CAPSULE PO SCH ×3 (09:28→18:24)
[2017-09-23] MEDS: NYSTATIN POWDER BOTTLE TP SCH ×2 (09:28→20:18)
[2017-09-23] MEDS: POTASSIUM CHLORIDE 20 MEQ TABLET.ER PO SCH ×2 (09:28→20:18)
[2017-09-23] MEDS: ENOXAPARIN SODIUM 40 MG/0.4 ML DISP.SYRIN SQ SCH (11:09)
[2017-09-23] MEDS: FERROUS SULFATE 325 MG TABLET PO SCH ×2 (11:09→18:24)
[2017-09-24] MEDS: FUROSEMIDE 40 MG/4 ML VIAL IVP SCH ×2 (06:37→14:12)
[2017-09-24] MEDS: PANTOPRAZOLE SODIUM 40 MG TABLET PO SCH (06:38)
[2017-09-24 07:16] LABS: BASOPHILS % 0.4 (0.0-1.5); EOSINOPHILS % 4.7 % (0.0-6.8); MEAN CORPUSCULAR HEMOGLOBIN 32.9 pg (28.0-34.0); MEAN CORPUSCULAR VOLUME 102.2 fl (80.0-100.0); MONOCYTES % 9.6 % (0.0-11.0); NEUTROPHILS # 1.5 # k/uL (1.4-7.7)
[2017-09-24 07:34] LABS: eGFR (African) > 60; eGFR (Non-African) > 60
[2017-09-24] MEDS: NYSTATIN POWDER BOTTLE TP SCH (08:17)
[2017-09-24] MEDS: POTASSIUM CHLORIDE 20 MEQ TABLET.ER PO SCH (08:17)
[2017-09-24] MEDS: GABAPENTIN 100 MG CAPSULE PO SCH ×2 (08:17→12:20)
[2017-09-24] MEDS: SALINE FLUSH 10 ML DISP.SYRIN IV SCH (08:18)
[2017-09-24] MEDS: ENOXAPARIN SODIUM 40 MG/0.4 ML DISP.SYRIN SQ SCH (11:35)
[2017-09-24] MEDS: FERROUS SULFATE 325 MG TABLET PO SCH (11:35)
--- NOTE | 2017-09-24 12:37 | Discharge Summary ---
Discharge Summary - Discharge Sumary History of Present Illness: 57yo white female was has some chronic pedal edema. Over the last 3 weeks the edema has been getting worse. We have tried to increase her lasix without much improvement. Have adds zaroxolyn again without much improvement. Patient states that she is having a hard time getting around because of the swelling. Her blood sugars have aster higher. She has started to have some orthopnic symptoms. She denies any chest pain or pressure feeling. Because of the presisitent edema and new orthopnic symptoms and cough will admit for IV lasix. Believe that she may be in some CHF. Condition at Discharge: Stable Home Medications: Ambulatory Orders Medication Instructions Recorded Furosemide [Lasix] 40 mg PO DAILY #30 tablet 01/24/17 Consultations this Visit: None Procedures this Visit: None Allergies/Adverse Reactions: Allergies Allergy/AdvReac Type Severity Reaction Status Date / Time No Known Allergies Allergy Verified 10/11/16 15:16 Discharge Summary: On admission Chest x-ray showed some mild pulmonary congestion. Patient was started on IV Lasix therapy. Patient did diuresis wll and lost about 15kg. patient stated her breathing did improve with the loss of fluids. Swelling in her feet did improve markedly. Patient continued to complain that she was not able to move her right lower extremity and she feels like she should be able to. A CT scan was done and was felt to be normal other than for some small chronic vessel disease. Patient does have a history of chronic anemia and thrombocytopenia. They remained stable during hospitalization. Patient creatinine did improve the 1.3 on admission to 1.1 on discharge. BUN improved from 31 to 27. Patient did have some mildly elevated liver function tests. Troponin was negative. BNP was elevated at 646. Patient diabetes remain stable during the hospitalization did not have any hyper or hypoglycemic episodes. At the time to discharge was felt that the patient could be managed on an outpatient basis and was subsequently discharged home. - Final Diagnosis (1) CHF (congestive heart failure) Problems: Improved. Patient will be scheduled for an outpatient echocardiogram. (2) Bilateral leg edema Problems: improved (3) Essential hypertension Problems: Stable on home medications. (4) Gait disturbance Problems: Improved during the hospitalization. (5) CKD (chronic kidney disease) Problems: Creatinine was 1.1 and BUN 27 on discharge. (6) Anemia Problems: Hemoglobin was 10.21 discharge platelet count was 67,000. (7) Diabetes type 2, controlled Problems: stable on home medications
--- NOTE | 2017-09-24 12:37 | Inpatient Progress Note ---
Subjective - Required Recertification Statement I anticipate X number of days because-include discharge plan: 1 day - Review of Systems Events since last encounter: Patient states she does seem to be doing some better today. Patient however does complain of some copies with moving her left lower extremities stable. Patient states that the swelling has improved. Patient breathing appeared to be close to back to normal. Patient denies any chest pain or chest pressure. Orthotic symptoms have improved. Patient denies any numbness or weakness to her lower extremities. Objective - Exam Vitals and I&O: Vital Signs Temp 97.1 F L 09/24/17 09:55 Pulse 80 09/24/17 09:55 Resp 16 09/24/17 09:55 BP 111/48 09/24/17 09:55 Pulse Ox 99 09/24/17 09:55 Intake & Output 09/23/17 09/24/17 09/24/17 23:59 11:59 23:59 Intake Total 1460 360 220 Output Total 1050 Balance 410 360 220 Weight 113.398 kg Intake: Oral 1460 360 220 Output: Urine 1050 Other: Voiding Method Bedside Commode Bedside Commode # Voids 2 2 General: Alert, Oriented to Person, Oriented to Place, Oriented to Time, Cooperative Neck: Supple, No JVD Lungs: Normal air movement, Speaks full Sentences, Rales (bilat base) Cardiovascular: Regular rate, Normal S1, Normal S2, No murmurs Abdomen: Normal bowel sounds, Soft, No tenderness Extremities: No clubbing, No cyanosis, No edema Skin: Normal, [place], Warm, Dry, Other (edema improved) Neurological: Normal speech, Strength Equal Bilat, Normal tone, Sensation intact , Cranial nerves 3-12 NL, Reflexes 2+. No: Normal gait Psych/Mental Status: Mental status NL, Mood NL, Appropriate Affect, Intact Judgment - Results Results: Laboratory Results WBC 3.00 K/ul (4.00-12.00) L 09/24/17 07:10 RBC 3.16 M/ul (3.90-5.20) L 09/24/17 07:10 Hgb 10.4 g/dL (12.0-16.0) L 09/24/17 07:10 Hct 32.3 % (34.5-46.5) L 09/24/17 07:10 MCV 102.2 fl (80.0-100.0) H 09/24/17 07:10 MCH 32.9 pg (28.0-34.0) 09/24/17 07:10 MCHC 32.2 g/dL (30.0-36.0) 09/24/17 07:10 RDW 15.0 % (11.3-14.3) H 09/24/17 07:10 Plt Count 67 K/mm3 (130-400) L 09/24/17 07:10 Neut % (Auto) 50.1 % (39.0-79.0) 09/24/17 07:10 Lymph % (Auto) 31.3 % (16.0-50.0) 09/24/17 07:10 Cowley % (Auto) 9.6 % (0.0-11.0) 09/24/17 07:10 Eos % (Auto) 4.7 % (0.0-6.8) 09/24/17 07:10 Baso % (Auto) 0.4 (0.0-1.5) 09/24/17 07:10 Neut # (Auto) 1.5 # k/uL (1.4-7.7) 09/24/17 07:10 Lymph # (Auto) 0.9 # k/uL (0.6-4.0) 09/24/17 07:10 Cowley # (Auto) 0.3 # k/uL (0.0-0.9) 09/24/17 07:10 Eos # (Auto) 0.1 # k/uL (0.0-0.6) 09/24/17 07:10 Baso # (Auto) 0.0 # k/uL (0.0-0.5) 09/24/17 07:10 Reactive Lymphs % 3.9 % (0.0-5.0) 09/24/17 07:10 Reactive Lymphs # 0.1 # k/uL (0.0-0.8) 09/24/17 07:10 Sodium 141 mmol/L (136-145) 09/24/17 07:10 Potassium 3.9 mmol/L (3.5-5.1) 09/24/17 07:10 Chloride 104 mmol/L (98-107) 09/24/17 07:10 Carbon Dioxide 28 mmol/L (22-30) 09/24/17 07:10 BUN 27 mg/dL (7-17) H 09/24/17 07:10 Creatinine 1.10 mg/dL (0.52-1.04) H 09/24/17 07:10 Estimated Creat Clear 117 09/24/17 07:10 Est GFR ( Amer) > 60 (60-) 09/24/17 07:10 Est GFR (Non-Af Amer) > 60 (60-) 09/24/17 07:10 Glucose 103 mg/dL (74-106) 09/24/17 07:10 Calcium 9.5 mg/dL (8.4-10.2) 09/24/17 07:10 Total Bilirubin 3.2 mg/dL (0.2-1.3) H 09/24/17 07:10 AST 61 U/L (15-46) H 09/24/17 07:10 ALT 30 U/L (13-69) 09/24/17 07:10 Alkaline Phosphatase 240 U/L (38-126) H 09/24/17 07:10 Troponin I < 0.03 ng/mL (0.03-0.06) L 09/21/17 10:55 NT-Pro-B Natriuret Pep 646.8 pg/mL (15.0-125.0) H 09/21/17 10:55 Total Protein 7.1 g/dL (6.3-8.2) 09/24/17 07:10 Albumin 3.1 g/dL (3.5-5.0) L 09/24/17 07:10 Assessment/Plan - Assessment/Plan (1) Bilateral leg edema Status: Acute Assessment: improved (2) CHF (congestive heart failure) Status: Acute Qualifiers: Heart failure type: diastolic Heart failure chronicity: acute Qualified Code(s): I50.31 - Acute diastolic (congestive) heart failure Comment: stable Assessment: stable (3) Diabetes mellitus type 2 Status: Acute Assessment: stable with no hyperglycemia or hypoglycemia (4) Essential hypertension Status: Acute (5) Gait disturbance Status: Acute Assessment: improved some
[2017-09-24 14:45] VITALS: BP 127/57
--- NOTE | 2017-10-15 20:41 | Inpatient Progress Note ---
Subjective - Required Recertification Statement I anticipate X number of days because-include discharge plan: 1 day - Review of Systems Subjective: Patient seemed to be doing better today. Patient continues to remained weak. Patient mental status remains stable. Patient has not had any further falls. Cardiovascular: Denies: Chest Pain Gastrointestinal: Denies: Nausea, Vomiting, Abdominal Pain Genitourinary: Denies: Dysuria Objective - Exam Vitals and I&O: Vital Signs Temp 97.8 F 09/24/17 14:00 Pulse 75 09/24/17 17:00 Resp 16 09/24/17 17:00 BP 127/57 09/24/17 14:00 Pulse Ox 97 09/24/17 14:00 General: Alert, Oriented to Person, Oriented to Place, Oriented to Time, Cooperative, No acute distress Neck: Supple Lungs: Clear to auscultation, Normal air movement, Speaks full Sentences, Respiratory Distress Cardiovascular: Regular rate, Normal S1, Normal S2, No murmurs Abdomen: Normal bowel sounds, Soft, No tenderness Extremities: No clubbing, No cyanosis, Other (2 [place] bilaterally) Skin: Normal, [place], Warm, Dry Neurological: Strength Equal Bilat, Normal tone, Sensation intact, Cranial nerves 3-12 NL. No: Normal gait Psych/Mental Status: Mental status NL, Mood NL - Results Results: Laboratory Results WBC 3.00 K/ul (4.00-12.00) L 09/24/17 07:10 RBC 3.16 M/ul (3.90-5.20) L 09/24/17 07:10 Hgb 10.4 g/dL (12.0-16.0) L 09/24/17 07:10 Hct 32.3 % (34.5-46.5) L 09/24/17 07:10 MCV 102.2 fl (80.0-100.0) H 09/24/17 07:10 MCH 32.9 pg (28.0-34.0) 09/24/17 07:10 MCHC 32.2 g/dL (30.0-36.0) 09/24/17 07:10 RDW 15.0 % (11.3-14.3) H 09/24/17 07:10 Plt Count 67 K/mm3 (130-400) L 09/24/17 07:10 Neut % (Auto) 50.1 % (39.0-79.0) 09/24/17 07:10 Lymph % (Auto) 31.3 % (16.0-50.0) 09/24/17 07:10 [place] % (Auto) 9.6 % (0.0-11.0) 09/24/17 07:10 Eos % (Auto) 4.7 % (0.0-6.8) 09/24/17 07:10 Baso % (Auto) 0.4 (0.0-1.5) 09/24/17 07:10 Neut # (Auto) 1.5 # k/uL (1.4-7.7) 09/24/17 07:10 Lymph # (Auto) 0.9 # k/uL (0.6-4.0) 09/24/17 07:10 [place] # (Auto) 0.3 # k/uL (0.0-0.9) 09/24/17 07:10 Eos # (Auto) 0.1 # k/uL (0.0-0.6) 09/24/17 07:10 Baso # (Auto) 0.0 # k/uL (0.0-0.5) 09/24/17 07:10 Reactive Lymphs % 3.9 % (0.0-5.0) 09/24/17 07:10 Reactive Lymphs # 0.1 # k/uL (0.0-0.8) 09/24/17 07:10 Sodium 141 mmol/L (136-145) 09/24/17 07:10 Potassium 3.9 mmol/L (3.5-5.1) 09/24/17 07:10 Chloride 104 mmol/L (98-107) 09/24/17 07:10 Carbon Dioxide 28 mmol/L (22-30) 09/24/17 07:10 BUN 27 mg/dL (7-17) H 09/24/17 07:10 Creatinine 1.10 mg/dL (0.52-1.04) H 09/24/17 07:10 Estimated Creat Clear 117 09/24/17 07:10 Est GFR ( Amer) > 60 (60-) 09/24/17 07:10 Est GFR (Non-Af Amer) > 60 (60-) 09/24/17 07:10 Glucose 103 mg/dL (74-106) 09/24/17 07:10 Calcium 9.5 mg/dL (8.4-10.2) 09/24/17 07:10 Total Bilirubin 3.2 mg/dL (0.2-1.3) H 09/24/17 07:10 AST 61 U/L (15-46) H 09/24/17 07:10 ALT 30 U/L (13-69) 09/24/17 07:10 Alkaline Phosphatase 240 U/L (38-126) H 09/24/17 07:10 Troponin I < 0.03 ng/mL (0.03-0.06) L 09/21/17 10:55 NT-Pro-B Natriuret Pep 646.8 pg/mL (15.0-125.0) H 09/21/17 10:55 Total Protein 7.1 g/dL (6.3-8.2) 09/24/17 07:10 Albumin 3.1 g/dL (3.5-5.0) L 09/24/17 07:10 Assessment/Plan - Assessment/Plan (1) Hypokalemia due to inadequate potassium intake Status: Acute Assessment: Improved potassium today is 3.8. Will restart oral supplementation and discontinue IV Potassium. (2) Bilateral leg edema Status: Acute Assessment: Stable appeared to be at baseline. (3) CHF (congestive heart failure) Status: Acute Qualifiers: Heart failure type: diastolic Heart failure chronicity: acute Qualified Code(s): I50.31 - Acute diastolic (congestive) heart failure Comment: stable Assessment: Stable on home medications. (4) Diabetes mellitus type 2 Status: Acute (5) Essential hypertension Status: Acute Assessment: Stable on home medications. (6) Gait disturbance Status: Acute Assessment: Patient has had several falls at home. Physical and occupational therapy have been ordered.
--- NOTE | 2017-10-15 20:45 | Discharge Summary ---
Discharge Summary - Discharge Sumary History of Present Illness: 57-year-old white female who was recently admitted to the hospital for symptoms of congestive heart failure. Patient has been doing fairly well at home until earlier today according to the patient. Patient became confused and disoriented. Patient is not sure what precipitated the mental confusion. Patient was subsequently brought to the ED for evaluation. Patient was found to be hypokalemic. Patient has not been taken her potassium supplement and has been on a diuretic. Patient mental confusion did improve by the time he reached the ED. CT scan of the head was done and was felt to be normal. Patient was subsequently admitted to the hospital for further care and evaluation. Patient chronic kidney disease appears to be a little bit worse and baseline. Patient continues to have anemia. Condition at Discharge: Stable Home Medications: Ambulatory Orders Medication Instructions Recorded Furosemide [Lasix] 40 mg PO DAILY #30 tablet 01/24/17 Consultations this Visit: None Procedures this Visit: None Allergies/Adverse Reactions: Allergies Allergy/AdvReac Type Severity Reaction Status Date / Time No Known Allergies Allergy Verified 10/05/17 10:59 Discharge Summary: Patient was started on oral and IV potassium supplement to hypokalemia. At the time to discharge it was 3.5 on oral potassium supplement. Patient was noted be anemic with the hemoglobin in .0 but this is patient baseline. Patient is also noted to have a leukopenia with WBC 2,400 and thrombocytopenia 60,000. Both of these are at baseline. Patient did have mildly elevated liver function tests related to fatty liver disease. They remained stable. Because the patient recent fall physical and occupational therapy were consulted. Patient continues to have some difficulties with her gait and was felt that she would benefit from further rehab services. At the time to discharge patient was transferred to [facility] for further occupational and physical therapy. Patient blood sugar did remain stable during her hospitalization. Mental status remained at baseline.Patient was transferred to SNF in stable condition. - Final Diagnosis (1) Hypokalemia due to inadequate potassium intake Problems: Resolved with supplemental potassium therapy. (2) Bilateral leg edema Problems: Stable (3) CHF (congestive heart failure) Problems: Stable on home medications. (4) Diabetes mellitus type 2 Problems: Stable on home medications. (5) Essential hypertension Problems: Stable on home medications. (6) Gait disturbance Problems: .
== END 2017-09-24 17:30 | disposition home or self-care (01) | DRG 948 ==
LOC: SOUTH 09:20
PROVIDERS: ADMIT Family Medicine; ATTEND Family Medicine
DX: R60.0 Localized edema (principal); I50.9 Heart failure, unspecified; E11.9 Type 2 diabetes mellitus without complications; I10 Essential (primary) hypertension; R26.89 Other abnormalities of gait and mobility
CPT/HCPCS: 36415; 70450; 71046; 80053; 83880; 84484; 85025; 90732; 93005; 97161; 97165; 97530; A9270; J1650; J1940; S1016

== ENCOUNTER 2017-10-05 10:17 | Inpatient (IN) | payer BC ==
[2017-10-05 10:42] LABS: BASOPHILS % 0.5 (0.0-1.5); EOSINOPHILS % 3.7 % (0.0-6.8); MEAN CORPUSCULAR HEMOGLOBIN 33.1 pg (28.0-34.0); MEAN CORPUSCULAR VOLUME 99.5 fl (80.0-100.0); MONOCYTES % 12.1 % (0.0-11.0); NEUTROPHILS # 1.4 # k/uL (1.4-7.7)
[2017-10-05 10:58] LABS: eGFR (African) > 60; eGFR (Non-African) 41
[2017-10-05] MEDS ORDERED: 0.9 % SODIUM CHLORIDE 1,000 ML with POTASSIUM CHLORIDE 40 MEQ IV ONE ×2 (11:30)
[2017-10-05] MEDS ORDERED: POTASSIUM CHLORIDE 20 MEQ TABLET.ER PO ONE (11:41)
[2017-10-05] MEDS ORDERED: MAGNESIUM SULFATE 2 GM in DEXTROSE 5 % IN WATER 100 ML IV STA ×2 (11:42)
[2017-10-05] MEDS ORDERED: MAGNESIUM SULFATE 1 GM/2ML VIAL ONE (11:45)
[2017-10-05] MEDS ORDERED: MAGNESIUM SULFATE/D5W 100 ML IV ONE (11:49)
--- NOTE | 2017-10-05 11:52 | ED Physician Documentation ---
Altered Mental Status - HISTORIAN Historian: patient, spouse, paramedics - HPI Stated Complaint: Altered mental status Chief Complaint: Altered Mental Status Onset: cannot confirm onset Last known Well Date: 10/04/17 Last Known Well Time: 18:00 Last known Well Code/Unknown Code: Unknown Character of Altered Mental Status: confused Context: none Cognition is Usually: alert, oriented x3 Gait is Usually: walks w/o assistance Associated Symptoms: recent illness (discharged from [facility] 09/24/17), new weakness , decreased ability to walk, weak Further Comments: yes (57 year old female patient brought in by EMS with weakness and confusion. called EMS due to increasing confusion, reports pateint's orientation "in and out". Unable to get patient out of chair today. Reports last night patient was looking for her underware; that she was wearing.) - ROS EYES/ENT: none CVS/RESP: none GI/: none MS/SKIN/LYMPH: none NEURO/PSYCH: other (confusion). denies: anxiety, depression Comment: ROS per ; patient unable to contribute due to confusion - PAST HX Past History: diabetes Type 2, other (chronic pedal edema, pancytopenia, hypertension) Other History: other (Last Echo -09/13/16 EF 55%; mitral regurg; aortic valve - normal) Surgeries/Procedures: cholecysectomy, other (total knee replacement - ) Allergies/Adverse Reactions: Allergies Allergy/AdvReac Type Severity Reaction Status Date / Time No Known Allergies Allergy Verified 10/05/17 10:59 Home Medications: Ambulatory Orders Medication Instructions Recorded Furosemide [Lasix] 40 mg PO DAILY #30 tablet 01/24/17 - SOCIAL HX Smoking History: non-smoker - FAMILY HX Family History: denies: none - VITAL SIGNS Vital Signs: Vital Signs Temp Pulse Resp BP Pulse Ox 98.6 F 82 17 107/43 98 10/05/17 10:10/05/17 11:30 10/05/17 10:10/05/17 10:10/05/17 11:30 - REVIEWED ASSESSMENTS Nursing Assessment Reviewed: Yes Vitals Reviewed: Yes Progress - Progress Progress: Old chart reviewed - Last ECHO reviewed. No aortic regurg noted on last ECHO. reports patient has not been taking potassium at home. Patient able to take PO's in ER. Will start po Kcl and slow IV hydration with KCL. Will need acute admission with severe deconditioning, likely transition to swing bed. Call to Dr Pollard - accepted for inpatient admission. - EKG/XRAY/CT EKG: rhythm (Sr, rate 87; no acute changes. ) ED Results Lab/Radiology - Lab Results Lab Results: Lab Results 10/05/17 10/05/17 10/05/17 10:40 10:40 10:40 WBC 2.40 K/ul L K/ul (4.00-12.00) RBC 3.30 M/ul L M/ul (3.90-5.20) Hgb 10.9 g/dL L g/dL (12.0-16.0) Hct 32.8 % L % (34.5-46.5) MCV 99.5 fl fl (80.0-100.0) MCH 33.1 pg pg (28.0-34.0) MCHC 33.3 g/dL g/dL (30.0-36.0) RDW 14.3 % % (11.3-14.3) Plt Count 67 K/mm3 L K/mm3 (130-400) Neut % (Auto) 56.3 % % (39.0-79.0) Lymph % (Auto) 23.5 % % (16.0-50.0) Barry % (Auto) 12.1 % H % (0.0-11.0) Eos % (Auto) 3.7 % % (0.0-6.8) Baso % (Auto) 0.5 (0.0-1.5) Neut # (Auto) 1.4 # k/uL # k/uL (1.4-7.7) Lymph # (Auto) 0.6 # k/uL # k/uL (0.6-4.0) Barry # (Auto) 0.3 # k/uL # k/uL (0.0-0.9) Eos # (Auto) 0.1 # k/uL # k/uL (0.0-0.6) Baso # (Auto) 0.0 # k/uL # k/uL (0.0-0.5) Reactive Lymphs % 4.0 % % (0.0-5.0) Reactive Lymphs # 0.1 # k/uL # k/uL (0.0-0.8) PT 14.6 Seconds H Seconds (9.4-11.6) INR 1.39 H (0.9-1.2) Sodium 135 mmol/L L mmol/L (136-145) Potassium 2.8 mmol/L L mmol/L (3.5-5.1) Chloride 90 mmol/L L mmol/L (98-107) Carbon Dioxide 33 mmol/L H mmol/L (22-30) BUN 44 mg/dL H mg/dL (7-17) Creatinine 1.40 mg/dL H mg/dL (0.52-1.04) Estimated Creat Clear 87 Est GFR ( Amer) > 60 (60 - ) Est GFR (Non-Af Amer) 41 L (60 - ) Glucose 82 mg/dL mg/dL (74-106) Calcium 9.4 mg/dL mg/dL (8.4-10.2) Total Bilirubin 4.4 mg/dL H mg/dL (0.2-1.3) AST 49 U/L H U/L (15-46) ALT 27 U/L U/L (13-69) Alkaline Phosphatase 224 U/L H U/L (38-126) Total Protein 7.4 g/dL g/dL (6.3-8.2) Albumin 3.2 g/dL L g/dL (3.5-5.0) - Radiology Radiology Impressions: Examination: CT head without contrast History: CT HEAD W/O, ALTERED MENTAL STATUS SINCE YESTERDAY (Hx) Comparison exam: 23 September 2017 Technique: Noncontrast head CT protocol. Findings: Ventricles and sulci are consistent for patient age. Cerebrocerebellar parenchyma demonstrates periventricular low attenuation consistent with small vessel disease. No evidence for parenchymal hemorrhage. No evidence for mass or mass effect. No midline shift. No extra axial fluid collections. Partial visualization of the paranasal sinuses, mastoid air cells, orbits, skull and scalp without gross irregularity. Impression: Stable age related changes. No acute parenchymal process. No hemorrhage. Electronically signed on Oct 05, 2017 11:34:31 AM CDT by: Jeff Cleary - Orders Orders: ED Orders Category Date Time Status Continuous EKG monitoring Q30M Care 10/05/17 10:25 Active Continuous Pulse Oximetry Q30M Care 10/05/17 10:[address] IV Lock 1T Care 10/05/17 10:[address] BRAIN W/O CONTRAST Stat Exams 10/05/17 Ordered CBC/PLATELET/DIFF Stat Lab 10/05/17 10:40 Completed CMP Stat Lab 10/05/17 10:40 Completed PT [PT-INR] Stat Lab 10/05/17 10:40 Completed UA W/MICRO IF INDICATED Stat Lab 10/05/17 10:25 Ordered Magnesium Sulfate Med 10/05/17 11:45 Discontinued 1 gm .ROUTE .STK-MED ONE Magnesium Sulfate 2 gm Med 10/05/17 11:42 Discontinued Dextrose 5 % in Water [D5w] 100 ml IV NOW Magnesium Sulfate/D5w [Magnesium-D5w 1 gm/100 ml Soln] Med 10/05/17 11:49 Discontinued 100 ml IV .STK-MED Potassium Chloride 40 Meq/Ns [Potassium 40 Meq/Ns 1000 Med 10/05/17 12:00 Ordered ml] 1,000 ml IV Q10H Potassium Chloride [Klor-Con 10 Meq/5 ml] 40 meq Med 10/05/17 11:30 Discontinued 0.9 % Sodium Chloride [Normal Saline] 1,000 ml IV NOW Potassium Chloride [Klor-Con M20] Med 10/05/17 11:41 Discontinued 20 meq PO NOW ONE EKG WITH COMPARISON Stat Ther 10/05/17 10:25 Ordered Altered Mental Status Physical - Physical Exam General Appearance: other (somnulent) Neuro/Psych: No: none slow to respond, inappropriate respond, speech abnml nml as tested. 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) HEENT: GARCIA, EOM's intact, no apparent trauma, ENT inspection nml, oropharynx nml, airway intact Neck: normal inspection, thyroid normal Respiratory: no resp distress, chest non-tender, breath sounds normal CVS: reg rate & rhythm, heart sounds normal, equal pulses, no gallop, PMI nml, no JVD, no friction rub, other (Aortic regurg noted 3/6; mitral regurg noted 2/6 ) Abdomen: non-tender, no organomegaly, nml bowel sounds, no distention, other ( morbid obesity; ecchymosis note on mid and LLQ) Skin: warm/dry, pallor, other (multiple healing abrasions on bilateral forearms ; multiple ecchymotic areas noted on forearms ) Extremities: edema (2+) Discharge Clincal Impression: Hypokalemia, Weakness, Pancytopenia, Anemia Altered mental status Qualifiers: Altered mental status type: disorientation Qualified Code(s): R41.0 - Disorientation, unspecified CKD (chronic kidney disease) Qualifiers: Chronic kidney disease stage: stage 3 (moderate) Qualified Code(s): N18.3 - Chronic kidney disease, stage 3 (moderate) Iron deficiency anemia Qualifiers: Iron deficiency anemia type: inadequate dietary iron intake Qualified Code(s): D50.8 - Other iron deficiency anemias Condition: Stable Disposition: 01 HOME, SELF-CARE Decision to Admit: [id number] Decision Time: 12:00
[2017-10-05] MEDS: POTASSIUM CHLORIDE 40 MEQ/NS 1,000 ML IV SCH ×2 (12:01→22:29)
[2017-10-05] MEDS: GLIMEPIRIDE 2 MG TABLET PO SCH (13:47)
[2017-10-05 15:48] VITALS: BMI 39.1
[2017-10-05] MEDS: GABAPENTIN 100 MG CAPSULE PO SCH (17:06)
[2017-10-05 17:34] LABS: COLOR,URINE ORANGE (YELLOW)
[2017-10-05 17:35] LABS: APPEARANCE,URINE CLOUDY (CLEAR); OCCULT BLOOD,URINE NEGATIVE (NEGATIVE); UROBILINOGEN URINE >=8.0 Eu (0.2-1.0)
--- NOTE | 2017-10-05 17:59 | History and Physical Report ---
History of Present Illnes - History of Present Illness Reason for Visit: mental confusion, hypokalemia History of Present Illness: 57-year-old white female who was recently admitted to the hospital for symptoms of congestive heart failure. Patient has been doing fairly well at home until earlier today according to the patient. Patient became confused and disoriented. Patient is not sure what precipitated the mental confusion. Patient was subsequently brought to the ED for evaluation. Patient was found to be hypokalemic. Patient has not been taken her potassium supplement and has been on a diuretic. Patient mental confusion did improve by the time he reached the ED. CT scan of the head was done and was felt to be normal. Patient was subsequently admitted to the hospital for further care and evaluation. Patient chronic kidney disease appears to be a little bit worse and baseline. Patient continues to have anemia. - Past Medical History Cardiac: HTN, Other (chronic leg swelling). denies: CAD, Valve insufficiency, Pulmonary hypertension Heme/Onc: Other (Pancytopenia) Rheumatologic: Other (Psoriasis) Endocrine: Diabetes (IDDM) - Past Surgical History Past Surgical History: Total Knee Replacement, Other (gall stone removal) - Past Social History Smoke: No Alcohol: None Lives: With Family - Health Maintenance Health Maintenance: Cholesterol Influenza Vaccine: Current for this Influenza Season Pneumonia Vaccine: Yes Resuscitation Status: Resusciation Status Resuscitation Status Full Code Review of Systems - Review of Systems Constitutional: Weakness. negative: Fever, Chills Eyes: negative: pain, vision change, conjunctivae inflammation, eyelid inflammation, redness ENT: negative: Ear Pain, Ear Discharge, Nose Pain, Nose Discharge, Nose Congestion, Mouth Pain, Mouth Swelling, Throat Pain, Throat Swelling Respiratory: Shortness of Breath. negative: Cough, Dry, Pleuritic Pain, Sputum , Wheezing Cardiovascular: Edema. negative: Chest Pain, Palpitations, Orthopnea, Light Headedness Gastrointestinal: negative: Nausea, Vomiting, Abdominal Pain, Diarrhea, Constipation, Melena, Hematochezia Genitourinary: negative: Dysuria, Frequency, Incontinence, Hematuria Musculoskeletal: Back Pain Skin: negative: Rash, Lesions Neurological: Weakness. negative: Numbness, Incoordination - Medications/Allergies Allergies/Adverse Reactions: Allergies Allergy/AdvReac Type Severity Reaction Status Date / Time No Known Allergies Allergy Verified 10/05/17 10:59 Current Inpatient Medications: Current Inpatient Medications Ferrous Sulfate (Feosol) 325 mg PO [id number] [facility] Furosemide (Lasix) 40 mg PO DAILY [facility] Gabapentin (Neurontin) 100 mg PO TID [facility] Last Admin: 10/05/17 17:06 Dose: 100 mg Glimepiride (Amaryl) 2 mg PO 0730 [facility] Last Admin: 10/05/17 13:47 Dose: 2 mg Potassium Chloride/Sodium Chloride (Potassium 40 Meq/Ns 1000 Ml) 1,000 mls @ 100 mls/hr IV Q10H [facility] Last Admin: 10/05/17 12:01 Dose: 100 mls/hr Metformin HCl (Glucophage) 1,[place] [address] [facility] Last Admin: 10/05/17 17:07 Dose: Not Given Potassium Chloride (Klor-Con M20) 20 meq PO HS [facility] Potassium Chloride (Klor-Con M20) 40 meq PO DAILY [facility] Exam - Exam Vital Signs: Vital Signs (72 hours) 10/05/17 10/05/17 10/05/17 12:30 13:00 13:23 Temperature 97.3 F L Pulse Rate 79 75 Pulse Rate [ 75 80 Right Pulse ox] Pulse Rate [ Right] Respiratory 17 18 Rate Blood Pressure 108/43 101/60 [Left Arm] Blood Pressure [Right Arm] O2 Sat by Pulse 97 95 Oximetry 10/05/17 14:00 Temperature 97.3 F L Pulse Rate Pulse Rate [ Right Pulse ox] Pulse Rate [ 80 Right] Respiratory 18 Rate Blood Pressure [Left Arm] Blood Pressure 101/60 [Right Arm] O2 Sat by Pulse 98 Oximetry General: Alert, Oriented to Person, Oriented to Place, Oriented to Time, No acute distress HEENT: Atraumatic Neck: Normal Range of Motion Lungs: Clear to auscultation, Normal air movement, Speaks full Sentences Cardiovascular: Regular rate, Normal S1, Normal S2, No murmurs, Murmur Murmur: Systolic Murmur Heart Murmur Grade: II Abdomen: Normal bowel sounds, Soft Integumentary: Normal Extremities: No clubbing, No cyanosis, Other (1-2 plus edema) Neurological: Normal speech, Strength Equal Bilat, Normal tone, Sensation intact , Cranial nerves 3-12 NL, Reflexes 2+ Psych/Mental Status: Mental status NL, Mood NL, Appropriate Affect, Intact Judgment Assessment/Plan - Assessment/Plan (1) Altered mental status Status: Acute Current Visit: Yes Qualifiers: Altered mental status type: disorientation Qualified Code(s): R41.0 - Disorientation, unspecified Assessment: CT scan of the head was normal. Will go ahead and continue to monitor. (2) CKD (chronic kidney disease) Status: Acute Current Visit: Yes Qualifiers: Chronic kidney disease stage: stage 3 (moderate) Qualified Code(s): N18.3 - Chronic kidney disease, stage 3 (moderate) Assessment: Will monitor patients BUN and creatinine. Patient has been started on some IV fluids for possible dehydration that may be contributing to her increase BUN and creatinine (3) Hypokalemia Status: Acute Current Visit: Yes Assessment: Will restart the patient on supplemental potassium (4) Iron deficiency anemia Status: Acute Current Visit: Yes Qualifiers: Iron deficiency anemia type: inadequate dietary iron intake Qualified Code( s): D50.8 - Other iron deficiency anemias Assessment: Continue home meds and monitor. VTE Assessment - RISK FACTOR SCORE VTE RISK FACTOR SCORES: AGE OVER 60 YEARS, ANTICIPATED BED CONFINEMENT OR IMMOBILIZATION > 24 HOURS - RISK VTE MODERATE RISK: SCORE OF 2 (RISK PROXIMAL DVT 2-4%) PROPHYAXIS NEEDED
--- NOTE | 2017-10-05 18:38 | Diagnostic Imaging Report ---
JOAQUÍN CLEMENTS ([employer]) - ER [facility] [address] [facility] [address] [place], [place]. [address] Report Submission Date: Oct 05, 2017 11:34:31 AM CDT Patient Study Name: TIM HIDALGO Date: Oct 05, 2017 11:05:20 AM CDT Modality Type: CT\SR Gender: F Description: CT BRAIN W/O CONTRAST : 56 Institution: [facility] Physician: JOAQUÍN CLEMENTS (BAYLEE) - ER Examination: CT head without contrast History: CT HEAD W/O, ALTERED MENTAL STATUS SINCE YESTERDAY (Hx) Comparison exam: 23 September 2017 Technique: Noncontrast head CT protocol. Findings: Ventricles and sulci are consistent for patient age. Cerebrocerebellar parenchyma demonstrates periventricular low attenuation consistent with small vessel disease. No evidence for parenchymal hemorrhage. No evidence for mass or mass effect. No midline shift. No extra axial fluid collections. Partial visualization of the paranasal sinuses, mastoid air cells, orbits, skull and scalp without gross irregularity. Impression: Stable age related changes. No acute parenchymal process. No hemorrhage. Electronically signed on Oct 05, 2017 11:34:31 AM CDT by: Jeff BHATT
[2017-10-05] MEDS: FERROUS SULFATE 325 MG TABLET PO SCH (19:59)
[2017-10-05] MEDS ORDERED: POTASSIUM CHLORIDE 20 MEQ TABLET.ER PO SCH (21:00)
[2017-10-06] MEDS: POTASSIUM CHLORIDE 40 MEQ/NS 1,000 ML IV SCH (06:05)
[2017-10-06 06:33] LABS: BASOPHILS % 0.5 (0.0-1.5); EOSINOPHILS % 5.5 % (0.0-6.8); MEAN CORPUSCULAR HEMOGLOBIN 33.3 pg (28.0-34.0); MEAN CORPUSCULAR VOLUME 100.5 fl (80.0-100.0); MONOCYTES % 12.2 % (0.0-11.0)
[2017-10-06 06:47] LABS: eGFR (African) > 60; eGFR (Non-African) > 60
[2017-10-06] MEDS: GLIMEPIRIDE 2 MG TABLET PO SCH (07:20)
[2017-10-06 08:38] LABS: NEUTROPHILS # 1.2 # k/uL (1.4-7.7)
[2017-10-06] MEDS ORDERED: FUROSEMIDE 40 MG TABLET PO SCH (09:00)
[2017-10-06] MEDS ORDERED: POTASSIUM CHLORIDE 20 MEQ TABLET.ER PO SCH (09:00)
[2017-10-06] MEDS: GABAPENTIN 100 MG CAPSULE PO SCH ×3 (09:35→17:54)
[2017-10-06] MEDS: FERROUS SULFATE 325 MG TABLET PO SCH ×2 (11:05→17:54)
[2017-10-07 06:27] VITALS: BP 101/53
[2017-10-07 07:09] LABS: eGFR (African) > 60; eGFR (Non-African) > 60
--- NOTE | 2017-10-30 12:57 | Discharge Summary ---
Discharge Summary - Discharge Sumary History of Present Illness: 57-year-old white female who was recently admitted to the hospital for symptoms of congestive heart failure. Patient has been doing fairly well at home until earlier today according to the patient. Patient became confused and disoriented. Patient is not sure what precipitated the mental confusion. Patient was subsequently brought to the ED for evaluation. Patient was found to be hypokalemic. Patient has not been taken her potassium supplement and has been on a diuretic. Patient mental confusion did improve by the time he reached the ED. CT scan of the head was done and was felt to be normal. Patient was subsequently admitted to the hospital for further care and evaluation. Patient chronic kidney disease appears to be a little bit worse and baseline. Patient continues to have anemia. Condition at Discharge: Stable Home Medications: Ambulatory Orders Medication Instructions Recorded Furosemide [Lasix] 40 mg PO DAILY #30 tablet 01/24/17 Lactulose [Enulose] 20 gm PO TID udc 10/28/17 Procedures this Visit: None Allergies/Adverse Reactions: Allergies Allergy/AdvReac Type Severity Reaction Status Date / Time No Known Allergies Allergy Verified 10/05/17 10:59 Discharge Summary: During her emergency room evaluation patient was noted to be hypokalemic. Patient was subsequently started on IV and PO supplemental potassium. By the next day patient potassium had increase from 2.8 to 3.8. Patient was discontinued off of the IV potassium and maintain on oral potassium supplement. On the day of dismissal patient potassium of 3.5. Patient did appear to be dehydrated some on admission. Admission creatinine 1.4 with a BUN of 44. At the time of dismissal creatinine was 1.1 with a BUN of 28. Patient continues to have some elevated liver function tests related to her fatty liver disease with a total bilirubin of 4.4 on admission. Patient continues to have some pancytopenia related to her blood counts. However they were stable from what they had been previously. Patient mental confusion did improve during her hospitalization. At the time of dismissal was felt that the patient could be followed up on an outpatient basis and was subsequently discharged in stable condition. - Final Diagnosis (1) Hypokalemia Problems: resolved (2) CKD (chronic kidney disease) Problems: improved (3) Altered mental status Problems: resolved (4) Iron deficiency anemia Problems: stable
--- NOTE | 2017-10-30 13:03 | Inpatient Progress Note ---
Subjective - Required Recertification Statement I anticipate X number of days because-include discharge plan: 1 day - Review of Systems Events since last encounter: Patient stated she is feeling better today. Patient states that her mental confusion has cleared. Patient feels like her muscles are stronger and she seemed to be ambulating better. Patient diabetes has been stable. General: Denies: Chills Cardiovascular: Denies: Chest Pain, Palpitations Gastrointestinal: Denies: Nausea, Vomiting, Abdominal Pain, Diarrhea, Melena, Hematochezia Objective - Exam Vitals and I&O: Vital Signs Temp 98.1 F 10/07/17 06:00 Pulse 74 10/07/17 06:35 Resp 18 10/07/17 06:00 BP 101/53 10/07/17 06:00 Pulse Ox 100 10/07/17 06:00 General: Alert, Oriented to Person, Oriented to Place, Oriented to Time, Cooperative Neck: Supple Lungs: Clear to auscultation, Normal air movement, Speaks full Sentences Cardiovascular: Regular rate, Normal S1, Normal S2, No murmurs Extremities: No clubbing, No cyanosis, Other (2 plus edema) Skin: Normal, [place], Warm, Dry Neurological: Normal gait, Normal speech, Strength Equal Bilat, Normal tone, Sensation intact Psych/Mental Status: Mental status NL, Mood NL, Appropriate Affect, Intact Judgment - Results Results: Laboratory Results WBC 2.70 K/ul (4.00-12.00) L 10/06/17 06:00 RBC 3.00 M/ul (3.90-5.20) L 10/06/17 06:00 Hgb 10.0 g/dL (12.0-16.0) L 10/06/17 06:00 Hct 30.2 % (34.5-46.5) L 10/06/17 06:00 MCV 100.5 fl (80.0-100.0) H 10/06/17 06:00 MCH 33.3 pg (28.0-34.0) 10/06/17 06:00 MCHC 33.1 g/dL (30.0-36.0) 10/06/17 06:00 RDW 14.1 % (11.3-14.3) 10/06/17 06:00 Plt Count 58 K/mm3 (130-400) L 10/06/17 06:00 Neut % (Auto) 46.3 % (39.0-79.0) 10/06/17 06:00 Lymph % (Auto) 31.8 % (16.0-50.0) 10/06/17 06:00 [place] % (Auto) 12.2 % (0.0-11.0) H 10/06/17 06:00 Eos % (Auto) 5.5 % (0.0-6.8) 10/06/17 06:00 Baso % (Auto) 0.5 (0.0-1.5) 10/06/17 06:00 Neut # (Auto) 1.2 # k/uL (1.4-7.7) L 10/06/17 06:00 Lymph # (Auto) 0.9 # k/uL (0.6-4.0) 10/06/17 06:00 [place] # (Auto) 0.3 # k/uL (0.0-0.9) 10/06/17 06:00 Eos # (Auto) 0.2 # k/uL (0.0-0.6) 10/06/17 06:00 Baso # (Auto) 0.0 # k/uL (0.0-0.5) 10/06/17 06:00 Reactive Lymphs % 3.8 % (0.0-5.0) 10/06/17 06:00 Reactive Lymphs # 0.1 # k/uL (0.0-0.8) 10/06/17 06:00 PT 14.6 Seconds (9.4-11.6) H 10/05/17 10:40 INR 1.39 (0.9-1.2) H 10/05/17 10:40 Sodium 133 mmol/L (136-145) L 10/07/17 06:20 Potassium 3.5 mmol/L (3.5-5.1) 10/07/17 06:20 Chloride 97 mmol/L (98-107) L 10/07/17 06:20 Carbon Dioxide 29 mmol/L (22-30) 10/07/17 06:20 BUN 28 mg/dL (7-17) H 10/07/17 06:20 Creatinine 1.10 mg/dL (0.52-1.04) H 10/07/17 06:20 Estimated Creat Clear 115 10/07/17 06:20 Est GFR ( Amer) > 60 (60-) 10/07/17 06:20 Est GFR (Non-Af Amer) > 60 (60-) 10/07/17 06:20 Glucose 67 mg/dL (74-106) L 10/07/17 06:20 Calcium 9.6 mg/dL (8.4-10.2) 10/07/17 06:20 Total Bilirubin 4.4 mg/dL (0.2-1.3) H 10/05/17 10:40 AST 49 U/L (15-46) H 10/05/17 10:40 ALT 27 U/L (13-69) 10/05/17 10:40 Alkaline Phosphatase 224 U/L (38-126) H 10/05/17 10:40 NT-Pro-B Natriuret Pep 223.6 pg/mL (15.0-125.0) H 10/05/17 10:40 Total Protein 7.4 g/dL (6.3-8.2) 10/05/17 10:40 Albumin 3.2 g/dL (3.5-5.0) L 10/05/17 10:40 Urine Color [place] (YELLOW) 10/05/17 10:45 Urine Appearance Cloudy (CLEAR) H 10/05/17 10:45 Urine pH 6.0 (5.0 - 8.0) 10/05/17 10:45 Ur Specific [place] 1.015 (1.010-1.030) 10/05/17 10:45 Urine Protein Negative mg/dL (NEGATIVE) 10/05/17 10:45 Urine Ketones Negative mg/dL (NEGATIVE) 10/05/17 10:45 Urine Occult Blood Negative (NEGATIVE) 10/05/17 10:45 Urine Nitrite Negative (NEGATIVE) 10/05/17 10:45 Urine Bilirubin Negative (NEGATIVE) 10/05/17 10:45 Urine Urobilinogen >=8.0 Eu (0.2-1.0) H 10/05/17 10:45 Ur Leukocyte Esterase Trace (NEGATIVE) H 10/05/17 10:45 Urine Glucose Negative mg/dL (NEGATIVE) 10/05/17 10:45 Assessment/Plan - Assessment/Plan (1) Hypokalemia Status: Acute Assessment: Improved, potassium at 3.8 today. (2) CKD (chronic kidney disease) Status: Chronic Qualifiers: Chronic kidney disease stage: stage 3 (moderate) Qualified Code(s): N18.3 - Chronic kidney disease, stage 3 (moderate) Assessment: improved, BUN and cratinine are both down a little (3) Altered mental status Status: Acute Qualifiers: Altered mental status type: disorientation Qualified Code(s): R41.0 - Disorientation, unspecified Narrative Support Text: resolved (4) Diabetes mellitus type 2 Status: Chronic Assessment: stable
== END 2017-10-07 07:00 | DRG 641 ==
LOC: ED 10:17 → SOUTH 12:00
PROVIDERS: ADMIT Family Medicine; ATTEND Family Medicine
DX: E87.6 Hypokalemia (principal); E86.0 Dehydration; R41.0 Disorientation, unspecified; D50.8 Other iron deficiency anemias
CPT/HCPCS: 36415; 70450; 80048; 80053; 81002; 83880; 85025; 85610; 96360; 96361; 96365; 99222; 99232; 99238; J3475; A9270; J3480

== ENCOUNTER 2017-10-07 07:05 | Inpatient (IN) | payer BC ==
[2017-10-07] MEDS ORDERED: ACETAMINOPHEN 500 MG TABLET PO PRN (07:35)
--- NOTE | 2017-10-07 07:37 | History and Physical Report ---
History of Present Illnes - History of Present Illness Reason for Visit: gait disturbance History of Present Illness: 57-year-old white female he was recently admitted to acute care for hypokalemia and mental status changes. Patient was reported to have fallen several times at home prior to her admission. By the time she came to the ED patient mental status had normalized. CT scan was done and was felt to be within normal range. However patient was noted to be hypokalemic. Patient had not been taken a supplemental potassium home and was admitted to acute care. Patient had been in acute care several weeks earlier for congestive heart failure and diabetes mellitus not been well controlled. Patient had a physical and occupational therapy consult them. It was felt that she would benefit from further rehab services and was subsequently admitted to SNF for these. - Past Medical History Cardiac: HTN, Other (chronic leg swelling). denies: CAD, Valve insufficiency, Pulmonary hypertension Gastrointestinal: Other (fatty lover disease) Heme/Onc: Other (Pancytopenia) Psych: Anxiety Musculoskeletal: Osteoarthritis Rheumatologic: Other (Psoriasis) Endocrine: Diabetes (IDDM) - Past Surgical History Past Surgical History: Total Knee Replacement, Other (gall stone removal) - Past Family History Mother Family History: Father Family History: - Past Social History Smoke: No Alcohol: None Lives: With Family - Health Maintenance Health Maintenance: Cholesterol, Influenza Vaccine, Pneumococcal Vaccine Influenza Vaccine: Current for this Influenza Season Pneumonia Vaccine: Yes Resuscitation Status: Resusciation Status Resuscitation Status Full Code - Unable to Obtain History Unable to Obtain: No Review of Systems - Review of Systems Constitutional: Weakness. negative: Fever, Chills, Sweats Eyes: negative: pain, vision change ENT: negative: Ear Pain, Nose Discharge, Nose Congestion, Mouth Swelling, Throat Pain Respiratory: Shortness of Breath, SOB with Excertion. negative: Cough, Dry, Hemoptysis, Pleuritic Pain, Sputum, Wheezing Cardiovascular: Edema. negative: Chest Pain, Palpitations, Orthopnea Gastrointestinal: negative: Nausea, Vomiting, Abdominal Pain, Diarrhea, Constipation, Melena, Hematochezia Genitourinary: negative: Dysuria, Frequency, Incontinence Musculoskeletal: Back Pain, Leg Pain (knees). negative: Foot Pain Skin: negative: Rash Neurological: Weakness, Incoordination. negative: Numbness, Change in Speech, Confusion - Medications/Allergies Allergies/Adverse Reactions: Allergies Allergy/AdvReac Type Severity Reaction Status Date / Time No Known Allergies Allergy Verified 10/05/17 10:59 Current Inpatient Medications: Current Inpatient Medications Enoxaparin Sodium (Lovenox) 30 mg SQ QD [facility] Stop: 10/20/17 08:01 Ferrous Sulfate (Feosol) 325 mg PO 1100 [place] Furosemide (Lasix) 40 mg PO DAILY [facility] Gabapentin (Neurontin) 100 mg PO TID [facility] Glimepiride (Amaryl) 2 mg PO DAILY [facility] Metformin HCl (Glucophage) [place] [id number] [facility] Potassium Chloride (Klor-Con M20) 40 meq PO DAILY [facility] Tramadol HCl (Ultram) 50 mg PO Q6H PRN PRN Reason: PAIN Exam - Exam Vital Signs: Vital Signs (72 hours) 10/06/17 10/07/17 10:00 06:00 Blood Pressure 101/53 Blood Pressure 102/56 [Left Arm] Blood Pressure 101/53 [Right Arm] General: Alert, Oriented to Person, Oriented to Place, Oriented to Time, Cooperative, Mild distress, Obese HEENT: Atraumatic, PERRLA, EOMI, Mouth Mucous membr. moist/[place], Nose Mucous membr. moist/[place] Neck: Normal Range of Motion Lungs: Clear to auscultation, Normal air movement, Speaks full Sentences Cardiovascular: Regular rate, Normal S1, Normal S2, No murmurs Abdomen: Normal bowel sounds, Soft, No tenderness, No hepatospenomegaly, No masses Integumentary: Normal, [place], Warm, Dry Extremities: No clubbing, No cyanosis, Normal pulses, No tenderness/swelling, Other (2 plus edema) Neurological: Normal speech, Strength Equal Bilat, Normal tone, Sensation intact , Cranial nerves 3-12 NL, Reflexes 2+. No: Normal gait Psych/Mental Status: Mental status NL, Mood NL, Appropriate Affect, Intact Judgment Assessment/Plan - Assessment/Plan (1) Diabetes mellitus type 2 Status: Chronic Assessment: Will continue home medications. (2) Essential hypertension Status: Chronic Assessment: Will continue home medications. (3) Hypokalemia Status: Acute Assessment: improved, will continue with supplemental K (4) Pancytopenia Status: Chronic VTE Assessment - RISK FACTOR SCORE VTE RISK FACTOR SCORES: AGE OVER 60 YEARS, ANTICIPATED BED CONFINEMENT OR IMMOBILIZATION > 24 HOURS - RISK VTE MODERATE RISK: SCORE OF 2 (RISK PROXIMAL DVT 2-4%) PROPHYAXIS NEEDED
[2017-10-07] MEDS: POTASSIUM CHLORIDE 20 MEQ TABLET.ER PO SCH ×2 (08:29→11:16)
[2017-10-07] MEDS: FERROUS SULFATE 325 MG TABLET PO SCH ×2 (08:29→11:42)
[2017-10-07] MEDS: ENOXAPARIN SODIUM 30 MG/0.3 ML DISP.SYRIN SQ SCH (08:30)
[2017-10-07] MEDS: PANTOPRAZOLE SODIUM 40 MG TABLET PO SCH (08:30)
[2017-10-07] MEDS: GABAPENTIN 100 MG CAPSULE PO SCH ×3 (08:31→17:03)
[2017-10-07] MEDS: GLIMEPIRIDE 2 MG TABLET PO SCH (08:31)
[2017-10-07] MEDS: FUROSEMIDE 40 MG TABLET PO SCH (08:31)
[2017-10-07] MEDS ORDERED: METFORMIN HCL 500 MG PO SCH (09:00)
[2017-10-07] MEDS ORDERED: FERROUS SULFATE 324 MG PO SCH (09:00)
[2017-10-07] MEDS ORDERED: Non-Formulary 1 EACH (Ranitidine Hcl [Ranitidine Hcl] 150 MG) PO SCH (09:00)
[2017-10-07 12:31] VITALS: BMI 38.9
[2017-10-09] MEDS: FERROUS SULFATE 325 MG TABLET PO SCH ×2 (11:02→11:18)
[2017-10-09] MEDS: GABAPENTIN 100 MG CAPSULE PO SCH ×3 (11:06→17:39)
[2017-10-09] MEDS: ENOXAPARIN SODIUM 30 MG/0.3 ML DISP.SYRIN SQ SCH (11:06)
[2017-10-09] MEDS: POTASSIUM CHLORIDE 20 MEQ TABLET.ER PO SCH (11:06)
[2017-10-09] MEDS: GLIMEPIRIDE 2 MG TABLET PO SCH (11:06)
[2017-10-09] MEDS: FUROSEMIDE 40 MG TABLET PO SCH (11:06)
[2017-10-09] MEDS: PANTOPRAZOLE SODIUM 40 MG TABLET PO SCH (11:06)
[2017-10-10] MEDS: PANTOPRAZOLE SODIUM 40 MG TABLET PO SCH (06:25)
[2017-10-10] MEDS: ENOXAPARIN SODIUM 30 MG/0.3 ML DISP.SYRIN SQ SCH (08:34)
[2017-10-10] MEDS: GABAPENTIN 100 MG CAPSULE PO SCH ×3 (08:34→17:24)
[2017-10-10] MEDS: FUROSEMIDE 40 MG TABLET PO SCH (08:34)
[2017-10-10] MEDS: POTASSIUM CHLORIDE 20 MEQ TABLET.ER PO SCH (08:34)
[2017-10-10 08:43] LABS: eGFR (African) > 60; eGFR (Non-African) > 60
[2017-10-10] MEDS: FERROUS SULFATE 325 MG TABLET PO SCH (11:30)
[2017-10-11] MEDS: PANTOPRAZOLE SODIUM 40 MG TABLET PO SCH (06:13)
[2017-10-11] MEDS: ENOXAPARIN SODIUM 30 MG/0.3 ML DISP.SYRIN SQ SCH (08:00)
[2017-10-11] MEDS ORDERED: ONDANSETRON HCL 4 MG TAB.RAPDIS PO PRN (08:20)
--- NOTE | 2017-10-11 08:23 | Inpatient Progress Note ---
Subjective - Required Recertification Statement I anticipate X number of days because-include discharge plan: 7 days - Review of Systems Subjective: Patient states that she has been nauseated some today , has vomited times one. States that nausea is associated with some dizziness when she moves. No previous problems. Denies any tinnitus or hearing difficulties. Feels that PT and OT are helping is feeling stronger. Kidney functions are back to normal. BS have been doing well running in the 100 range. No further hypoglycemic episodes. HEENT: Denies: Head Aches, Ear Pain Pulmonary: Denies: Dyspnea, Cough Genitourinary: Denies: Dysuria, Frequency Objective - Exam Vitals and I&O: Vital Signs Temp 97.9 F 10/11/17 04:38 Pulse 84 10/11/17 04:38 Resp 20 10/11/17 04:38 BP 128/54 10/11/17 04:38 Pulse Ox 99 10/11/17 04:38 Intake & Output 10/10/17 10/10/17 10/11/17 11:59 23:59 11:59 Intake Total 240 1040 Balance 240 1040 Intake: Oral 240 1040 Other: Voiding Method Toilet Toilet # Voids 1 1 # Bowel Movements 0 0 General: Alert, Oriented to Person, Oriented to Place, Oriented to Time, Cooperative, Mild distress HEENT: Other (TM clear) Neck: Supple, No JVD Lungs: Clear to auscultation, Normal air movement, Speaks full Sentences. No: Wheezes, Rales, Rhonchi Cardiovascular: Regular rate, Normal S1, Normal S2, No murmurs Abdomen: Normal bowel sounds, Soft, No tenderness, No hepatospenomegaly, No masses. No: Distended Skin: Normal, [place], Warm, Dry Psych/Mental Status: Mental status NL, Mood NL, Appropriate Affect, Intact Judgment - Results Results: Laboratory Results Sodium 136 mmol/L (136-145) 10/10/17 06:45 Potassium 3.9 mmol/L (3.5-5.1) 10/10/17 06:45 Chloride 102 mmol/L (98-107) 10/10/17 06:45 Carbon Dioxide 27 mmol/L (22-30) 10/10/17 06:45 BUN 22 mg/dL (7-17) H 10/10/17 06:45 Creatinine 0.90 mg/dL (0.52-1.04) 10/10/17 06:45 Estimated Creat Clear 141 10/10/17 06:45 Est GFR ( Amer) > 60 (60-) 10/10/17 06:45 Est GFR (Non-Af Amer) > 60 (60-) 10/10/17 06:45 Glucose 78 mg/dL (74-106) 10/10/17 06:45 Calcium 9.0 mg/dL (8.4-10.2) 10/10/17 06:45 Assessment/Plan - Assessment/Plan (1) Gait disturbance Status: Acute Assessment: Improved with PT and OT (2) Nausea Status: Acute Assessment: Will give Zofran for nausea (3) Diabetes type 2, controlled Status: Chronic Qualifiers: Diabetes mellitus complication status: without complication (4) Benign proximal labyrhithitis Status: Acute Assessment: Meclazine 25mg QID PRN
[2017-10-11] MEDS ORDERED: MECLIZINE HCL 25 MG TABLET PO PRN (08:40)
[2017-10-11] MEDS: GABAPENTIN 100 MG CAPSULE PO SCH ×3 (09:20→17:42)
[2017-10-11] MEDS: POTASSIUM CHLORIDE 20 MEQ TABLET.ER PO SCH (09:20)
[2017-10-11] MEDS: FUROSEMIDE 40 MG TABLET PO SCH (09:20)
[2017-10-11] MEDS: FERROUS SULFATE 325 MG TABLET PO SCH (11:19)
[2017-10-12] MEDS ORDERED: HYDROcodone /APAP 5/325 1 EACH TABLET ONE (01:10)
[2017-10-12] MEDS: traMADol HCL 50 MG TABLET PO PRN (01:20)
[2017-10-12] MEDS: PANTOPRAZOLE SODIUM 40 MG TABLET PO SCH (06:32)
[2017-10-12] MEDS: POTASSIUM CHLORIDE 20 MEQ TABLET.ER PO SCH (08:47)
[2017-10-12] MEDS: GABAPENTIN 100 MG CAPSULE PO SCH ×3 (08:47→17:44)
[2017-10-12] MEDS: FUROSEMIDE 40 MG TABLET PO SCH (08:47)
[2017-10-12] MEDS: ENOXAPARIN SODIUM 30 MG/0.3 ML DISP.SYRIN SQ SCH (08:47)
[2017-10-12] MEDS: FERROUS SULFATE 325 MG TABLET PO SCH (11:02)
[2017-10-13] MEDS: PANTOPRAZOLE SODIUM 40 MG TABLET PO SCH (05:50)
[2017-10-13] MEDS: FUROSEMIDE 40 MG TABLET PO SCH (08:12)
[2017-10-13] MEDS: GABAPENTIN 100 MG CAPSULE PO SCH ×3 (08:12→17:33)
[2017-10-13] MEDS: ENOXAPARIN SODIUM 30 MG/0.3 ML DISP.SYRIN SQ SCH (08:12)
[2017-10-13] MEDS: POTASSIUM CHLORIDE 20 MEQ TABLET.ER PO SCH (08:12)
[2017-10-13] MEDS: FERROUS SULFATE 325 MG TABLET PO SCH (11:13)
[2017-10-13] MEDS: traMADol HCL 50 MG TABLET PO PRN (15:37)
[2017-10-14] MEDS: PANTOPRAZOLE SODIUM 40 MG TABLET PO SCH (06:01)
[2017-10-14] MEDS: GABAPENTIN 100 MG CAPSULE PO SCH (08:44)
[2017-10-14] MEDS: POTASSIUM CHLORIDE 20 MEQ TABLET.ER PO SCH (08:44)
[2017-10-14] MEDS: ENOXAPARIN SODIUM 30 MG/0.3 ML DISP.SYRIN SQ SCH (08:44)
[2017-10-14] MEDS: FUROSEMIDE 40 MG TABLET PO SCH (08:44)
[2017-10-14 10:01] VITALS: BP 111/66
--- NOTE | 2017-10-15 20:59 | Discharge Summary ---
Discharge Summary - Discharge Sumary History of Present Illness: 57-year-old white female he was recently admitted to acute care for hypokalemia and mental status changes. Patient was reported to have fallen several times at home prior to her admission. By the time she came to the ED patient mental status had normalized. CT scan was done and was felt to be within normal range. However patient was noted to be hypokalemic. Patient had not been taken a supplemental potassium home and was admitted to acute care. Patient had been in acute care several weeks earlier for congestive heart failure and diabetes mellitus not been well controlled. Patient had a physical and occupational therapy consult them. It was felt that she would benefit from further rehab services and was subsequently admitted to SNF for these. Condition at Discharge: Stable Home Medications: Ambulatory Orders Medication Instructions Recorded Furosemide [Lasix] 40 mg PO DAILY #30 tablet 01/24/17 Consultations this Visit: None Procedures this Visit: None Allergies/Adverse Reactions: Allergies Allergy/AdvReac Type Severity Reaction Status Date / Time No Known Allergies Allergy Verified 10/05/17 10:59 Discharge Summary: Patient did well with her physical and occupational therapy. Patient is highly motivated did participate. Patient did show some improvement in her stability with using a walker. Patient diabetes mellitus remain fairly stable. Patient did have several hypoglycemic episodes. Patient insulin was adjusted. Hypertension remain stable on home medications. On the night prior to discharge patient did get up without a walker and fell. Patient did not have any injuries. Patient felt that she could manage at home okay with a walker and was subsequently discharged home in stable condition. Patient spouse stated that they would be someone at home with her for the first week. - Final Diagnosis (1) Gait disturbance Problems: improved (2) Bilateral leg edema Problems: improved (3) CHF (congestive heart failure) Problems: Stable on home medications. (4) CKD (chronic kidney disease) Problems: stable (5) Essential hypertension Problems: Stable on home medications. (6) Hypokalemia Problems: resolved
== END 2017-10-14 09:35 | disposition home or self-care (01) | DRG 93 ==
LOC: SOUTH 07:05
PROVIDERS: ADMIT Family Medicine; ATTEND Family Medicine
DX: R26.89 Other abnormalities of gait and mobility (principal); I50.9 Heart failure, unspecified; E11.9 Type 2 diabetes mellitus without complications; I10 Essential (primary) hypertension
CPT/HCPCS: 36415; 80048; J1650; A9270; A9270-GY

== ENCOUNTER 2017-10-26 09:39 | Inpatient (IN) | payer BC ==
[2017-10-26] MEDS ORDERED: 0.9 % SODIUM CHLORIDE 1,000 ML IV ONE (09:43)
[2017-10-26 11:36] LABS: BASOPHILS % 0.4 (0.0-1.5); EOSINOPHILS % 1.5 % (0.0-6.8); MEAN CORPUSCULAR HEMOGLOBIN 33.7 pg (28.0-34.0); MEAN CORPUSCULAR VOLUME 106.1 fl (80.0-100.0); MONOCYTES % 10.4 % (0.0-11.0); NEUTROPHILS # 1.6 # k/uL (1.4-7.7)
[2017-10-26 11:51] LABS: eGFR (African) > 60; eGFR (Non-African) > 60
[2017-10-26 12:47] LABS: APPEARANCE,URINE CLEAR (CLEAR); COLOR,URINE YELLOW (YELLOW); OCCULT BLOOD,URINE NEGATIVE (NEGATIVE); PH URINE 7.5 (5.0 - 8.0)
--- NOTE | 2017-10-26 13:40 | ED Physician Documentation ---
Altered Mental Status - HISTORIAN Historian: spouse, paramedics - [facility] Chief Complaint: Altered Mental Status Onset: hours Last known Well Date: 10/25/17 Last Known Well Time: 12:00 Last known Well Code/Unknown Code: Unknown Character of Altered Mental Status: disoriented, confused Cognition is Usually: other (alert; oriented x 2; frequent confusion) Further Comments: yes (57 year old female patient brought in by EMS from home with weakness, confusion and altered mental status. Patient unable to contribute to ROS at present due to confusion. Extremely poor personal hygiene. ) - ROS EYES/ENT: none (Patient unable to contribute to ROS questions due to confusion. ) - PAST HX Past History: diabetes Type 2, other (EF 55% on 09/13/16 ECHO; Mitral regur; chronic pedal edema; CHF; Fe Def Anemia) Other History: hypertension, other (pancytopenia) Surgeries/Procedures: cholecysectomy Allergies/Adverse Reactions: Allergies Allergy/AdvReac Type Severity Reaction Status Date / Time No Known Allergies Allergy Verified 10/05/17 10:59 Home Medications: Ambulatory Orders Medication Instructions Recorded Furosemide [Lasix] 40 mg PO DAILY #30 tablet 01/24/17 - SOCIAL HX Smoking History: non-smoker - FAMILY HX Family History: denies: none - VITAL SIGNS Vital Signs: Vital Signs Temp Pulse Resp BP Pulse Ox 98.6 F 80 16 128/74 98 10/26/17 18:35 10/26/17 18:35 10/26/17 18:35 10/26/17 18:35 10/26/17 18:06 - REVIEWED ASSESSMENTS Nursing Assessment Reviewed: Yes Vitals Reviewed: Yes Progress - Progress Progress: 1430 Attempted to get patient up; unable to sit up; severe deconditioning. 1320 now at bedside; reports patient went to [facility] yesterday, did not take her Lactulose yesterday. States started to become confused last night ; worse today. reports ammonia level was high at recent admission to . [address] Pollard - patient accepted for admission; lactulose restarted. Suspect elevated ammonia level; lab sent out. ED Results Lab/Radiology - Lab Results Lab Results: Lab Results 10/26/17 10/26/17 10/26/17 12:20 11:30 11:30 WBC 2.30 K/ul L K/ul (4.00-12.00) RBC 2.83 M/ul L M/ul (3.90-5.20) Hgb 9.5 g/dL L g/dL (12.0-16.0) Hct 30.0 % L % (34.5-46.5) MCV 106.1 fl H fl (80.0-100.0) MCH 33.7 pg pg (28.0-34.0) MCHC 31.8 g/dL g/dL (30.0-36.0) RDW 14.0 % % (11.3-14.3) Plt Count 57 K/mm3 L K/mm3 (130-400) Neut % (Auto) 70.6 % % (39.0-79.0) Lymph % (Auto) 13.9 % L % (16.0-50.0) [place] % (Auto) 10.4 % % (0.0-11.0) Eos % (Auto) 1.5 % % (0.0-6.8) Baso % (Auto) 0.4 (0.0-1.5) Neut # (Auto) 1.6 # k/uL # k/uL (1.4-7.7) Lymph # (Auto) 0.3 # k/uL L # k/uL (0.6-4.0) [place] # (Auto) 0.2 # k/uL # k/uL (0.0-0.9) Eos # (Auto) 0.0 # k/uL # k/uL (0.0-0.6) Baso # (Auto) 0.0 # k/uL # k/uL (0.0-0.5) Reactive Lymphs % 3.2 % % (0.0-5.0) Reactive Lymphs # 0.1 # k/uL # k/uL (0.0-0.8) Sodium 141 mmol/L mmol/L (136-145) Potassium 4.5 mmol/L mmol/L (3.5-5.1) Chloride 113 mmol/L H mmol/L (98-107) Carbon Dioxide 22 mmol/L mmol/L (22-30) BUN 27 mg/dL H mg/dL (7-17) Creatinine 1.20 mg/dL H mg/dL (0.52-1.04) Est GFR ( Amer) > 60 (60 - ) Est GFR (Non-Af Amer) > 60 (60 - ) Glucose 105 mg/dL mg/dL (74-106) Calcium 8.7 mg/dL mg/dL (8.4-10.2) Total Bilirubin 3.0 mg/dL H mg/dL (0.2-1.3) AST 63 U/L H U/L (15-46) ALT 39 U/L U/L (13-69) Alkaline Phosphatase 208 U/L H U/L (38-126) Total Protein 6.3 g/dL g/dL (6.3-8.2) Albumin 2.6 g/dL L g/dL (3.5-5.0) Urine Color Yellow (YELLOW) Urine Appearance Clear (CLEAR) Urine pH 7.5 (5.0 - 8.0) Ur Specific Holder 1.020 (1.010-1.030) Urine Protein Negative mg/dL mg/dL (NEGATIVE) Urine Ketones Negative mg/dL mg/dL (NEGATIVE) Urine Occult Blood Negative (NEGATIVE) Urine Nitrite Positive H (NEGATIVE) Urine Bilirubin Negative (NEGATIVE) Urine Urobilinogen 4.0 Eu H Eu (0.2-1.0) Ur Leukocyte Esterase Negative (NEGATIVE) Urine Glucose Negative mg/dL mg/dL (NEGATIVE) - Orders Orders: ED Orders Category Date Time Status Orthostatics 1T Care 10/26/17 12:00 Active AMMONIA Stat Lab 10/26/17 11:30 Received CBC/PLATELET/DIFF Stat Lab 10/26/17 11:30 Completed CMP Stat Lab 10/26/17 11:30 Completed UA MACRO DIP ONLY Stat Lab 10/26/17 12:20 Completed URINE CULTURE Routine Lab 10/26/17 12:20 Received 0.9 % Sodium Chloride [Normal Saline] 1,000 ml Med 10/26/17 09:43 Discontinued IV .STK-MED 0.9 % Sodium Chloride [Normal Saline] 1,000 ml Med 10/26/17 09:47 Discontinued IV NOW Lactulose [Enulose] Med 10/27/17 13:29 Once 20 gm PO NOW ONE Altered Mental Status Physical - Physical Exam General Appearance: lethargic Neuro/Psych: none slow to respond, other (Lethargic; oriented to person; follows simple command; equal bilatera digital designer; no focal deficit) Peripheral Exam: motor nml, sensation nml, weakness (generalized severe weakness ; cannot reposition self or sit up right) HEENT: GARCIA, EOM's intact, no apparent trauma, ENT inspection nml, oropharynx nml, airway intact Respiratory: no resp distress, chest non-tender, breath sounds normal CVS: reg rate & rhythm, heart sounds normal, equal pulses, no murmur, no gallop , PMI nml, no JVD, no friction rub, 24 Abdomen: non-tender, no organomegaly, nml bowel sounds, no distention Skin: normal color, warm/dry, NR, INT, DR Extremities: non-tender, normal range of motion, no evidence of injury, no edema , J, BINDERY HELPER Discharge Clincal Impression: Weakness, Pancytopenia, Elevated LFTs Altered mental status Qualifiers: Altered mental status type: disorientation Qualified Code(s): R41.0 - Disorientation, unspecified Condition: Stable Disposition: 01 HOME, SELF-CARE Decision to Admit: NO Decision Time: 13:39
[2017-10-26] MEDS: 0.9 % SODIUM CHLORIDE 1,000 ML IV ONE ×2 (15:10→21:26)
[2017-10-26] MEDS ORDERED: 0.9 % SODIUM CHLORIDE 500 ML IV ONE (15:14)
[2017-10-26 17:43] VITALS: BMI 85.3
--- NOTE | 2017-10-26 18:06 | History and Physical Report ---
History of Present Illnes - History of Present Illness Reason for Visit: mental confusion History of Present Illness: 57-year-old white female who presented to the emergency room after she became confused with some mental status changes. Patient spell stated the patient is not been taken her lactulose as prescribed. It was felt that the patient may be developing some hepatic encephalopathy and was subsequently admitted to the hospital for further care and evaluation. Patient has a history of fatty liver disease causing some cirrhosis.Patient stated she has been having some tremors. Blood sugars have been fairly stable in the 100 range. Patient denies any hypoglycemic episodes. Patient denies any recent trauma. Patient denies any focal neurological deficit. - Past Medical History Cardiac: HTN, Other (chronic leg swelling). denies: CAD, Valve insufficiency, Pulmonary hypertension Gastrointestinal: Other (fatty liver disease) Heme/Onc: Other (Pancytopenia) Psych: Anxiety Musculoskeletal: Osteoarthritis Rheumatologic: Other (Psoriasis) Endocrine: Diabetes (IDDM) - Past Surgical History Past Surgical History: Total Knee Replacement, Other (gall stone removal) - Past Family History Mother Family History: Father Family History: - Past Social History Smoke: No Alcohol: None Lives: With Family - Health Maintenance Health Maintenance: Cholesterol, Influenza Vaccine, Pneumococcal Vaccine Influenza Vaccine: Current for this Influenza Season Pneumonia Vaccine: Yes Resuscitation Status: Resusciation Status Resuscitation Status Full Code - Unable to Obtain History Unable to Obtain: No Review of Systems - Review of Systems Constitutional: Weakness. negative: Fever, Chills Eyes: negative: pain, vision change ENT: negative: Ear Pain, Ear Discharge, Nose Pain, Nose Discharge, Nose Congestion, Mouth Pain Respiratory: Shortness of Breath, SOB with Excertion (at baseline). negative: Cough, Dry, Hemoptysis, Pleuritic Pain, Sputum, Wheezing Cardiovascular: negative: Chest Pain, Palpitations, Orthopnea, Paroxysmal Noc. Dyspnea, Edema, Light Headedness Gastrointestinal: Other (fatty liver disese). negative: Nausea, Vomiting, Abdominal Pain, Diarrhea, Constipation, Melena, Hematochezia Genitourinary: negative: Dysuria, Frequency, Incontinence, Hematuria, Deferred Musculoskeletal: Back Pain. negative: Neck Pain, Shoulder Pain Skin: negative: Rash, Lesions Neurological: Weakness, Confusion. negative: Numbness, Incoordination, Seizures - Medications/Allergies Allergies/Adverse Reactions: Allergies Allergy/AdvReac Type Severity Reaction Status Date / Time No Known Allergies Allergy Verified 10/05/17 10:59 Current Inpatient Medications: Current Inpatient Medications Lactulose (Enulose) 20 gm PO NOW ONE Stop: 10/27/17 13:30 Lactulose (Enulose) 20 gm PO TID [facility] Exam - Exam Vital Signs: Vital Signs (72 hours) 10/26/17 10/26/17 14:06 14:35 Temperature 98.4 F Pulse Rate [ 77 Apical] Respiratory 16 Rate Blood Pressure 128/74 [Left Arm] Blood Pressure 126/62 [Right Arm] O2 Sat by Pulse 100 100 Oximetry General: Alert, Oriented to Person, Oriented to Place, Cooperative. No: Oriented to Time HEENT: Atraumatic, PERRLA, EOMI, Mouth Mucous membr. moist/[place], Nose Mucous membr. moist/[place] Neck: Normal Range of Motion Carotids: WNL Thyroid: WNL Lungs: Clear to auscultation, Normal air movement, Speaks full Sentences Cardiovascular: Regular rate, Normal S1, Normal S2, No murmurs Abdomen: Normal bowel sounds, Soft, No tenderness, No hepatospenomegaly, No masses. No: Hepatomegaly Integumentary: Normal, [place], Warm, Dry Extremities: No clubbing, No cyanosis, Normal pulses, No tenderness/swelling, Other (mild edema) Neurological: Normal gait, Normal speech, Strength Equal Bilat, Normal tone, Sensation intact, Cranial nerves 3-12 NL, Reflexes 2+ Psych/Mental Status: Mood NL, Appropriate Affect. No: Mental status NL ( confused some, patient states that she is getting better), Intact Judgment Assessment/Plan - Assessment/Plan (1) Altered mental status Status: Acute Current Visit: Yes Qualifiers: Altered mental status type: disorientation Qualified Code(s): R41.0 - Disorientation, unspecified Assessment: Boyd to be related to possible hepatic encephalopathy. Patient will have a pneumonia level drawn. Patient be restarted on lactulose. (2) Elevated LFTs Status: Acute Current Visit: Yes Assessment: Related to her nonalcoholic fatty liver disease. (3) Anemia Status: Acute Current Visit: No Assessment: Stable (4) CHF (congestive heart failure) Status: Acute Current Visit: No Qualifiers: Heart failure type: diastolic Heart failure chronicity: acute Qualified Code(s): I50.31 - Acute diastolic (congestive) heart failure Comment: stable Assessment: Will continue with home medications. (5) CKD (chronic kidney disease) Status: Acute Current Visit: No Qualifiers: Chronic kidney disease stage: stage 3 (moderate) Qualified Code(s): N18.3 - Chronic kidney disease, stage 3 (moderate) Assessment: Will monitor patient BUN and creatinine. (6) Diabetes mellitus type 2 Status: Chronic Current Visit: No (7) Essential hypertension Status: Chronic Current Visit: No Assessment: Will continue with home medications. (8) Pancytopenia Status: Chronic Current Visit: No Assessment: Appears to be stable at this time. VTE Assessment - RISK FACTOR SCORE VTE RISK FACTOR SCORES: AGE 40-60 YEARS, ANTICIPATED BED CONFINEMENT OR IMMOBILIZATION > 24 HOURS - RISK VTE MODERATE RISK: SCORE OF 2 (RISK PROXIMAL DVT 2-4%) PROPHYAXIS NEEDED
[2017-10-26] MEDS: PANTOPRAZOLE SODIUM 40 MG TABLET PO SCH (20:43)
[2017-10-26] MEDS: LACTULOSE 10 GM/15 ML UDC PO SCH (21:51)
[2017-10-27] MEDS: PANTOPRAZOLE SODIUM 40 MG TABLET PO SCH (06:09)
[2017-10-27 07:46] LABS: MEAN CORPUSCULAR HEMOGLOBIN 34.2 pg (28.0-34.0); MEAN CORPUSCULAR VOLUME 101.4 fl (80.0-100.0)
[2017-10-27 07:59] LABS: eGFR (African) > 60; eGFR (Non-African) > 60
[2017-10-27] MEDS: INSULIN REGULAR, HUMAN 100 UNIT/ML 3ML VIAL SQ SCH ×3 (08:03→16:47)
[2017-10-27] MEDS: POTASSIUM CHLORIDE 20 MEQ TABLET.ER PO SCH (08:05)
[2017-10-27] MEDS: GLIMEPIRIDE 2 MG TABLET PO SCH (08:05)
[2017-10-27] MEDS: FUROSEMIDE 40 MG TABLET PO SCH (08:06)
[2017-10-27] MEDS: GABAPENTIN 100 MG CAPSULE PO SCH ×3 (08:06→17:04)
[2017-10-27 08:09] LABS: EOSINOPHILS % 4 % (0-7); MONOCYTES % 8 % (0-11); SEGMENTED NEUTROPHILS % 64 % (39-79)
[2017-10-27] MEDS: LACTULOSE 10 GM/15 ML UDC PO SCH ×3 (08:35→17:05)
[2017-10-27] MEDS: traMADol HCL 50 MG TABLET PO PRN ×2 (09:57→21:56)
[2017-10-27] MEDS ORDERED: LACTULOSE 10 GM/15 ML UDC PO ONE (13:29)
[2017-10-28] MEDS: PANTOPRAZOLE SODIUM 40 MG TABLET PO SCH (06:00)
[2017-10-28] MEDS: INSULIN REGULAR, HUMAN 100 UNIT/ML 3ML VIAL SQ SCH (07:43)
[2017-10-28] MEDS: LACTULOSE 10 GM/15 ML UDC PO SCH (08:31)
[2017-10-28] MEDS: GABAPENTIN 100 MG CAPSULE PO SCH (08:31)
[2017-10-28] MEDS: GLIMEPIRIDE 2 MG TABLET PO SCH (08:31)
[2017-10-28] MEDS: POTASSIUM CHLORIDE 20 MEQ TABLET.ER PO SCH (08:31)
[2017-10-28] MEDS: FUROSEMIDE 40 MG TABLET PO SCH (08:31)
[2017-10-28 09:57] VITALS: BP 105/63
--- NOTE | 2017-11-18 13:41 | Inpatient Progress Note ---
Subjective - Required Recertification Statement I anticipate X number of days because-include discharge plan: 2 days - Review of Systems Events since last encounter: Patient seemed to be doing better today. Patient mental function appeared to be improved. Patient is oriented times three. Diabetes mellitus has been stable. Patient is had some mildly low blood sugars. Hypertension has been stable without any chest pain or chest pressure. Peel edema is improved. Objective - Exam Vitals and I&O: Vital Signs Temp 97.2 F L 10/28/17 08:43 Pulse 69 10/28/17 08:43 Resp 18 10/28/17 08:43 BP 89/40 10/28/17 08:43 Pulse Ox 100 10/28/17 08:43 General: Alert, Oriented to Person, Oriented to Place, Oriented to Time, Cooperative Neck: Supple Lungs: Clear to auscultation, Normal air movement, Speaks full Sentences. No: Wheezes, Rales, Rhonchi Cardiovascular: Regular rate, Normal S1, Normal S2, No murmurs Abdomen: Normal bowel sounds, Soft, No tenderness Extremities: Other (edema 2 plus) Skin: Normal, [place], Warm Neurological: Normal gait, Strength Equal Bilat, Cranial nerves 3-12 NL, Reflexes 2+ Psych/Mental Status: Mental status NL, Mood NL, Appropriate Affect, Intact Judgment - Results Results: Laboratory Results WBC 2.10 K/ul (4.00-12.00) L 10/27/17 07:35 RBC 3.02 M/ul (3.90-5.20) L 10/27/17 07:35 Hgb 10.3 g/dL (12.0-16.0) L 10/27/17 07:35 Hct 30.6 % (34.5-46.5) L 10/27/17 07:35 MCV 101.4 fl (80.0-100.0) H 10/27/17 07:35 MCH 34.2 pg (28.0-34.0) H 10/27/17 07:35 MCHC 33.7 g/dL (30.0-36.0) 10/27/17 07:35 RDW 14.3 % (11.3-14.3) 10/27/17 07:35 Plt Count 64 K/mm3 (130-400) L 10/27/17 07:35 Neut % (Auto) 70.6 % (39.0-79.0) 10/26/17 11:30 Lymph % (Auto) 13.9 % (16.0-50.0) L 10/26/17 11:30 [place] % (Auto) 10.4 % (0.0-11.0) 10/26/17 11:30 Eos % (Auto) 1.5 % (0.0-6.8) 10/26/17 11:30 Baso % (Auto) 0.4 (0.0-1.5) 10/26/17 11:30 Neut # (Auto) 1.6 # k/uL (1.4-7.7) 10/26/17 11:30 Lymph # (Auto) 0.3 # k/uL (0.6-4.0) L 10/26/17 11:30 [place] # (Auto) 0.2 # k/uL (0.0-0.9) 10/26/17 11:30 Eos # (Auto) 0.0 # k/uL (0.0-0.6) 10/26/17 11:30 Baso # (Auto) 0.0 # k/uL (0.0-0.5) 10/26/17 11:30 Seg Neutrophils % 64 % (39-79) 10/27/17 07:35 Lymphocytes % 24 % (16-50) 10/27/17 07:35 Reactive Lymphs % 3.2 % (0.0-5.0) 10/26/17 11:30 Monocytes % 8 % (0-11) 10/27/17 07:35 Eosinophils % 4 % (0-7) 10/27/17 07:35 Reactive Lymphs # 0.1 # k/uL (0.0-0.8) 10/26/17 11:30 Plt Morphology Comment Abnormal (NORMAL) H 10/27/17 07:35 Macrocytosis 1+ (NEGATIVE) H 10/27/17 07:35 RBC Morph Comment Abnormal (NORMAL) H 10/27/17 07:35 Sodium 141 mmol/L (136-145) 10/27/17 07:35 Potassium 4.4 mmol/L (3.5-5.1) 10/27/17 07:35 Chloride 114 mmol/L (98-107) H 10/27/17 07:35 Carbon Dioxide 20 mmol/L (22-30) L 10/27/17 07:35 BUN 23 mg/dL (7-17) H 10/27/17 07:35 Creatinine 1.00 mg/dL (0.52-1.04) 10/27/17 07:35 Estimated Creat Clear 270 10/27/17 07:35 Est GFR ( Amer) > 60 (60-) 10/27/17 07:35 Est GFR (Non-Af Amer) > 60 (60-) 10/27/17 07:35 Glucose 75 mg/dL (74-106) 10/27/17 07:35 Calcium 9.0 mg/dL (8.4-10.2) 10/27/17 07:35 Total Bilirubin 3.6 mg/dL (0.2-1.3) H 10/27/17 07:35 AST 85 U/L (15-46) H 10/27/17 07:35 ALT 49 U/L (13-69) 10/27/17 07:35 Alkaline Phosphatase 202 U/L (38-126) H 10/27/17 07:35 Ammonia 219 ug/dL (17-87) H 10/26/17 11:30 Total Protein 6.9 g/dL (6.3-8.2) 10/27/17 07:35 Albumin 3.0 g/dL (3.5-5.0) L 10/27/17 07:35 Urine Color Yellow (YELLOW) 10/26/17 12:20 Urine Appearance Clear (CLEAR) 10/26/17 12:20 Urine pH 7.5 (5.0 - 8.0) 10/26/17 12:20 Ur Specific [place] 1.020 (1.010-1.030) 10/26/17 12:20 Urine Protein Negative mg/dL (NEGATIVE) 10/26/17 12:20 Urine Ketones Negative mg/dL (NEGATIVE) 10/26/17 12:20 Urine Occult Blood Negative (NEGATIVE) 10/26/17 12:20 Urine Nitrite Positive (NEGATIVE) H 10/26/17 12:20 Urine Bilirubin Negative (NEGATIVE) 10/26/17 12:20 Urine Urobilinogen 4.0 Eu (0.2-1.0) H 10/26/17 12:20 Ur Leukocyte Esterase Negative (NEGATIVE) 10/26/17 12:20 Urine Glucose Negative mg/dL (NEGATIVE) 10/26/17 12:20 Assessment/Plan - Assessment/Plan (1) Altered mental status Status: Acute Qualifiers: Altered mental status type: disorientation Qualified Code(s): R41.0 - Disorientation, unspecified Assessment: [place] to probably be related to some hepatic encephalopathy related to her fatty liver disease. Patient does seem to be much improved today. (2) Elevated LFTs Status: Acute Assessment: Improved. (3) Anemia Status: Acute (4) CKD (chronic kidney disease) Status: Chronic (5) Diabetes mellitus type 2 Status: Chronic Assessment: stable (6) Essential hypertension Status: Chronic Assessment: stable (7) Pancytopenia Status: Chronic Assessment: stable
--- NOTE | 2017-11-18 13:41 | Discharge Summary ---
Discharge Summary - Discharge Sumary History of Present Illness: 57-year-old white female who presented to the emergency room after she became confused with some mental status changes. Patient stated the she has not been taken her lactulose as prescribed. It was felt that the patient may be developing some hepatic encephalopathy and was subsequently admitted to the hospital for further care and evaluation. Patient has a history of fatty liver disease causing some cirrhosis.Patient stated she has been having some tremors. Blood sugars have been fairly stable in the 100 range. Patient denies any hypoglycemic episodes. Patient denies any recent trauma. Patient denies any focal neurological deficit. Home Medications: Ambulatory Orders Medication Instructions Recorded Lactulose [Enulose] 20 gm PO TID udc 10/28/17 Potassium Chloride [Klor-Con M20] 40 meq PO DAILY tablet.er 11/17/17 Allergies/Adverse Reactions: Allergies Allergy/AdvReac Type Severity Reaction Status Date / Time No Known Allergies Allergy Verified 11/15/17 09:35 Discharge Summary: Patient was restarted on a lactulose for her liver failure related to her fatty liver disease. Patient mental status did improve as her liver function test improved some. Patient ammonia level was elevated at the time of admission. Patient did have some mild hypoglycemic episodes and medication for adjusted for her diabetes while she was in the hospital. Hypertension remains stable on her home medications. Patient chronic kidney disease remains stable. Patient peel edema did improve with elevation of the leg an external compression. At the time of dismissal patient was oriented times three was felt that she could be discharged home and followed up on an outpatient basis. - Final Diagnosis (1) Altered mental status Problems: improved (2) Elevated LFTs Problems: stable to improved (3) CHF (congestive heart failure) Problems: stable (4) CKD (chronic kidney disease) Problems: stable (5) Diabetes mellitus type 2 Problems: some Hypoglycemic episodes during her hospitalization. Patient was discharged on her home medications. (6) Essential hypertension Problems: stable (7) Pancytopenia Problems: stable, WBC count 2100, hemoglobin 10.3, platelet count 64,000.
== END 2017-10-28 09:59 | disposition home or self-care (01) | DRG 808 ==
LOC: ED 09:39 → SOUTH 13:58
PROVIDERS: ADMIT Family Medicine; ATTEND Family Medicine
DX: D61.818 Other pancytopenia (principal); I50.31 Acute diastolic (congestive) heart failure; R41.0 Disorientation, unspecified; D50.9 Iron deficiency anemia, unspecified; K76.0 Fatty (change of) liver, not elsewhere classified; N18.3 Chronic kidney disease, stage 3 (moderate); E11.22 Type 2 diabetes mellitus with diabetic chronic kidney disease
CPT/HCPCS: 51701; 80053; 81002; 82140; 85025; 87086; 87186; A9270; J7030; J7060; 96365; 96366; 99223; 99232; 99238

== ENCOUNTER 2017-11-08 08:20 | Emergency (ER) | payer BC ==
[2017-11-08] MEDS ORDERED: DEXTROSE 50% 50 ML DISP.SYRIN IVP ONE ×2 (09:50→09:58)
--- NOTE | 2017-11-08 10:05 | ED Physician Documentation ---
General Adult - HISTORIAN Historian: patient - HPI Stated Complaint: Return of swelling to legs Chief Complaint: Lower Extremity Problem Additional Information: recurrent lower extremity edema-chronic recurren t w/ reported non compliance of leg elevation diet and meds. pt reports no breakfast this am. recent bs at home reported from 100 to 190. fsbs now = 56 w/no breakfast-opt alert coherent- given 25cc 50% dextrose Onset: days ago (prog over several days) Timing: worse Severity: moderate - ROS CONST: weakness (plus leg edema and pain) EYES/ENT: none CVS/RESP: none GI/: none MS/SKIN/LYMPH: leg swelling, leg pain - PAST HX Past History: other (unc diabetes ch leg edema and peripheral neuropathy gerd and apparent "liver problems") Other History: diabetes Type 2 Allergies/Adverse Reactions: Allergies Allergy/AdvReac Type Severity Reaction Status Date / Time No Known Allergies Allergy Verified 10/05/17 10:59 Home Medications: Ambulatory Orders Medication Instructions Recorded Lactulose [Enulose] 20 gm PO TID udc 10/28/17 - SOCIAL HX Smoking History: non-smoker Alcohol Use: none Drug Use: none - FAMILY HX Family History: No - VITAL SIGNS Vital Signs: Vital Signs Temp Pulse Resp BP Pulse Ox 97.7 F 73 18 116/37 99 11/08/17 08:20 11/08/17 08:20 11/08/17 08:20 11/08/17 08:20 11/08/17 08:20 - REVIEWED ASSESSMENTS Nursing Assessment Reviewed: Yes Vitals Reviewed: Yes ED Results Lab/Radiology - Orders Orders: ED Orders Category Date Time Status CBC/PLATELET/DIFF Routine Lab 11/08/17 Ordered CMP Routine Lab 11/08/17 Ordered URINALYSIS Routine Lab 11/08/17 Ordered Dextrose 50% [Dextrose 50%-Water Syringe] Med 11/08/17 09:58 Once 25 ml IVP NOW ONE Dextrose 50% [Dextrose 50%-Water Syringe] Med 11/08/17 09:50 Discontinued 50 ml IVP .STK-MED ONE General Adult Physical Exam - PHYSICAL EXAM GENERAL APPEARANCE: mild distress EENT: eye inspection normal NECK: normal inspection, thyroid normal. No: lymphadenopathy, carotid bruit RESPIRATORY: no resp distress, chest non-tender, breath sounds normal CVS: reg rate & rhythm, heart sounds normal ABDOMEN: soft, non-tender, distended BACK: normal inspection SKIN: warm/dry, normal color. No: cyanosis, diaphoresis, jaundice EXTREMITIES: edema (very marked). No: non-tender NEURO: oriented X3, motor nml, sensation nml, mood/affect nml Discharge Clincal Impression: unc diabetes, hypoglycem ia, chronic anemia, reported meds non compliance Referrals: Alexis Pollard MD [Primary Care Provider] - 2 Days Additional Instructions: inc lasix to 40 bid - see DR POLLARD LINUS dietary compliance and meds compliance keep legs elevated-reported non compliant. I spoke w/DR POLLARD above tx ok w/him Condition: Good Disposition: 01 HOME, SELF-CARE Decision to Admit: NO Decision Time: 12:53
[2017-11-08 10:11] LABS: BASOPHILS % 0.2 (0.0-1.5); MEAN CORPUSCULAR HEMOGLOBIN 34.5 pg (28.0-34.0); MEAN CORPUSCULAR VOLUME 105.3 fl (80.0-100.0); MONOCYTES % 8.4 % (0.0-11.0); NEUTROPHILS # 3.4 # k/uL (1.4-7.7)
[2017-11-08 10:21] LABS: eGFR (African) > 60; eGFR (Non-African) > 60
[2017-11-08 11:45] LABS: APPEARANCE,URINE CLOUDY (CLEAR); COLOR,URINE AMBER (YELLOW); OCCULT BLOOD,URINE NEGATIVE (NEGATIVE)
[2017-11-08 14:16] VITALS: BP 89/40
== END 2017-11-08 14:13 | disposition home or self-care (01) ==
LOC: ED 08:20
DX: E11.65 Type 2 diabetes mellitus with hyperglycemia (principal); E16.2 Hypoglycemia, unspecified; D64.9 Anemia, unspecified; Z91.14 Patient's other noncompliance with medication regimen
CPT/HCPCS: 80053; 81002; 85025; 87086; 96374; S1016

== ENCOUNTER 2017-11-15 08:42 | Observation (INO) | payer BC ==
[2017-11-15 09:42] LABS: BASOPHILS % 0.3 (0.0-1.5); EOSINOPHILS % 3.2 % (0.0-6.8); MEAN CORPUSCULAR HEMOGLOBIN 34.6 pg (28.0-34.0); MEAN CORPUSCULAR VOLUME 103.1 fl (80.0-100.0); MONOCYTES % 9.8 % (0.0-11.0); NEUTROPHILS # 2.7 # k/uL (1.4-7.7)
[2017-11-15 09:51] LABS: eGFR (African) > 60; eGFR (Non-African) 38
[2017-11-15 09:55] LABS: ANISOCYTOSIS 1+ (NEGATIVE); HYPOCHROMASIA 1+ (NEGATIVE)
--- NOTE | 2017-11-15 10:22 | ED Physician Documentation ---
General Adult - HISTORIAN Historian: patient - HPI Stated Complaint: Continued chronic Bilateral Leg Swelling Chief Complaint: General Adult Additional Information: PT HERE C/O INC [id number] LEGS. SHE WAS HERE LAST WEEK W/ SAME C/O. WE RAISED HER LASIX FROM 40 TO 80 DAILY BUT REPORTS Arethat she is non compliant w/ both meds and food. legs appear slightly better this week than last week. Onset: other (correction and w/ freq visits to ed. ) Timing: still present, persistent since (before visit last week-nurasing home was mentioned as consideration) Severity: moderate - ROS CONST: other (as above) EYES/ENT: none (but visual acuity was diminished last week) CVS/RESP: shortness of breath. 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 ) Allergies/Adverse Reactions: Allergies Allergy/AdvReac Type Severity Reaction Status Date / Time No Known Allergies Allergy Verified 11/15/17 09:35 Home Medications: Ambulatory Orders Medication Instructions Recorded Lactulose [Enulose] 20 gm PO TID udc 10/28/17 - SOCIAL HX Smoking History: non-smoker Alcohol Use: none Drug Use: none - FAMILY HX Family History: No - VITAL SIGNS Vital Signs: Vital Signs Temp Pulse Resp BP Pulse Ox 98.3 F 87 14 109/41 100 11/15/17 08:43 11/15/17 08:43 11/15/17 08:43 11/15/17 08:43 11/15/17 08:43 - REVIEWED ASSESSMENTS Nursing Assessment Reviewed: Yes Vitals Reviewed: Yes ED Results Lab/Radiology - Lab Results Lab Results: Lab Results 11/15/17 11/15/17 11/15/17 09:25 09:25 09:25 WBC 3.80 K/ul L K/ul (4.00-12.00) RBC 2.43 M/ul L M/ul (3.90-5.20) Hgb 8.4 g/dL L g/dL (12.0-16.0) Hct 25.0 % L % (34.5-46.5) MCV 103.1 fl H fl (80.0-100.0) MCH 34.6 pg H pg (28.0-34.0) MCHC 33.6 g/dL g/dL (30.0-36.0) RDW 14.7 % H % (11.3-14.3) Plt Count 72 K/mm3 L K/mm3 (130-400) Neut % (Auto) 71.1 % % (39.0-79.0) Lymph % (Auto) 12.2 % L % (16.0-50.0) [place] % (Auto) 9.8 % % (0.0-11.0) Eos % (Auto) 3.2 % % (0.0-6.8) Baso % (Auto) 0.3 (0.0-1.5) Neut # (Auto) 2.7 # k/uL # k/uL (1.4-7.7) Lymph # (Auto) 0.5 # k/uL L # k/uL (0.6-4.0) [place] # (Auto) 0.4 # k/uL # k/uL (0.0-0.9) Eos # (Auto) 0.1 # k/uL # k/uL (0.0-0.6) Baso # (Auto) 0.0 # k/uL # k/uL (0.0-0.5) Reactive Lymphs % 3.3 % % (0.0-5.0) Reactive Lymphs # 0.1 # k/uL # k/uL (0.0-0.8) Plt Morphology Comment Normal (NORMAL) Hypochromasia 1+ H (NEGATIVE) Anisocytosis 1+ H (NEGATIVE) RBC Morph Comment Abnormal H (NORMAL) Sodium 138 mmol/L mmol/L (136-145) Potassium 4.4 mmol/L mmol/L (3.5-5.1) Chloride 105 mmol/L mmol/L (98-107) Carbon Dioxide 27 mmol/L mmol/L (22-30) BUN 36 mg/dL H mg/dL (7-17) Creatinine 1.50 mg/dL H mg/dL (0.52-1.04) Estimated Creat Clear 85 Est GFR ( Amer) > 60 (60 - ) Est GFR (Non-Af Amer) 38 L (60 - ) Glucose 68 mg/dL L mg/dL (74-106) Calcium 8.5 mg/dL mg/dL (8.4-10.2) Total Bilirubin 3.7 mg/dL H mg/dL (0.2-1.3) AST 45 U/L U/L (15-46) ALT 29 U/L U/L (13-69) Alkaline Phosphatase 201 U/L H U/L (38-126) Troponin I < 0.03 ng/mL L ng/mL (0.03-0.06) NT-Pro-B Natriuret Pep 601.4 pg/mL H pg/mL (15.0-125.0) Total Protein 6.3 g/dL g/dL (6.3-8.2) Albumin 2.6 g/dL L g/dL (3.5-5.0) - Radiology Radiology Impressions: cxr-no acute disease seen heart size fairly normal - Orders Orders: ED Orders Category Date Time Status CHEST 1VIEW [RAD] Stat Exams 11/15/17 Ordered BNP [NT-proBNP] Stat Lab 11/15/17 09:25 Completed CBC/PLATELET/DIFF Routine Lab 11/15/17 09:25 Completed CMP Routine Lab 11/15/17 09:25 Completed RBC/PLATELET MORPHOLOGY Routine Lab 11/15/17 09:25 Completed TROPONIN I (cTnI) Stat Lab 11/15/17 09:25 Completed UA [URINALYSIS] Routine Lab 11/15/17 Ordered Chem Sticks Med 11/15/17 09:14 Discontinued 1 each STAT STA EKG WITH COMPARISON Stat Ther 11/15/17 Ordered General Adult Physical Exam - PHYSICAL EXAM GENERAL APPEARANCE: mild distress EENT: eye inspection normal NECK: normal inspection RESPIRATORY: no resp distress, breath sounds normal CVS: reg rate & rhythm, heart sounds normal ABDOMEN: soft, non-tender SKIN: warm/dry, normal color. No: cyanosis, diaphoresis EXTREMITIES: edema NEURO: oriented X3. No: mood/affect nml Discharge Clincal Impression: uncontrolled diaabetes, chronic leg edema-exaberated, inability to ambulate, chronic per vasc disease-exaberation, hx food/meds non compliance, Gait disturbance, CKD (chronic kidney disease) Referrals: Alexis Pollard MD [Primary Care Provider] - 2 Days Comments: disc condition w/DR POLLARD will admit obersaviation-social svc eval possible placement Condition: Fair Disposition: 09 ADMITTED INPATIENT Decision to Admit: [id number] Decision Time: 11:11
[2017-11-15] MEDS ORDERED: METFORMIN HCL 500 MG PO SCH (15:27)
[2017-11-15] MEDS ORDERED: GLIMEPIRIDE 2 MG TABLET PO SCH (15:27)
[2017-11-15] MEDS ORDERED: POTASSIUM CHLORIDE 20 MEQ TABLET.ER PO SCH (15:27)
[2017-11-15] MEDS ORDERED: FERROUS SULFATE 324 MG PO SCH (15:27)
[2017-11-15] MEDS ORDERED: Non-Formulary 1 EACH (Ranitidine Hcl [Ranitidine Hcl] 150 MG) PO SCH (15:27)
[2017-11-15] MEDS: LACTULOSE 10 GM/15 ML UDC PO SCH ×2 (15:55→17:43)
[2017-11-15] MEDS: GABAPENTIN 100 MG CAPSULE PO SCH ×2 (15:58→17:43)
[2017-11-15] MEDS: 0.9 % SODIUM CHLORIDE 1,000 ML IV SCH (15:59)
[2017-11-15] MEDS: FUROSEMIDE 40 MG TABLET PO SCH (15:59)
[2017-11-15 17:01] VITALS: BMI 36.9
--- NOTE | 2017-11-15 18:40 | Diagnostic Imaging Report ---
HANK CABRERA [facility] [address] [facility] [address] [place], [place]. [address] Report Submission Date: Nov 15, 2017 9:44:26 AM CDT Patient Study Name: TIM HIDALGO Date: Nov 15, 2017 9:17:05 AM CDT Modality Type: DX Gender: F Description: CHEST : 56 Institution: [facility] Physician: HANK CABRERA Portable chest History: Short of breath. Leg edema. Portable chest dated November 15, 2017 is compared with September 21, 2017. There is a calcified granuloma at the mid right lung. Otherwise, the lungs are clear. The cardiomediastinal silhouette is unchanged in size and configuration. Heart size is within normal limits. There is no pleural effusion. Impression: Old granulomatous disease. No active disease. No change compared with September 21, 2017. Electronically signed on Nov 15, 2017 9:44:26 AM CDT by: Leandra BHATT
[2017-11-15] MEDS ORDERED: FAMOTIDINE 20 MG TABLET PO SCH (21:00)
[2017-11-15] MEDS ORDERED: FERROUS SULFATE 325 MG TABLET PO SCH (21:00)
[2017-11-15] MEDS: traMADol HCL 50 MG TABLET PO PRN (21:23)
[2017-11-16] MEDS: 0.9 % SODIUM CHLORIDE 1,000 ML IV SCH (01:30)
[2017-11-16] MEDS: traMADol HCL 50 MG TABLET PO PRN ×3 (05:02→20:41)
[2017-11-16] MEDS: FAMOTIDINE 20 MG TABLET PO SCH ×2 (06:21→18:09)
[2017-11-16] MEDS: GLIMEPIRIDE 2 MG TABLET PO SCH (07:49)
[2017-11-16] MEDS: POTASSIUM CHLORIDE 20 MEQ TABLET.ER PO SCH (07:50)
[2017-11-16] MEDS: FUROSEMIDE 40 MG TABLET PO SCH (07:50)
[2017-11-16] MEDS: GABAPENTIN 100 MG CAPSULE PO SCH ×3 (07:50→18:08)
[2017-11-16] MEDS: LACTULOSE 10 GM/15 ML UDC PO SCH ×3 (07:50→18:10)
[2017-11-16 11:04] LABS: APPEARANCE,URINE CLEAR (CLEAR); COLOR,URINE YELLOW (YELLOW); OCCULT BLOOD,URINE 2+ (NEGATIVE)
[2017-11-16] MEDS ORDERED: 0.9 % SODIUM CHLORIDE 1,000 ML IV ONE (11:19)
[2017-11-16] MEDS: FERROUS SULFATE 325 MG TABLET PO SCH ×2 (11:35→18:09)
[2017-11-16 15:24] LABS: eGFR (African) > 60; eGFR (Non-African) 41
[2017-11-16] MEDS ORDERED: POTASSIUM CHLORIDE 20 MEQ TABLET.ER PO SCH (18:00)
--- NOTE | 2017-11-16 19:53 | Diagnostic Imaging Report ---
[facility]/MED SURG [facility] [place] [facility] [address] [facility] [address] Report Submission Date: Nov 16, 2017 9:16:28 AM CDT Patient Study Name: TIM HIDALGO Date: Nov 16, 2017 8:36:41 AM CDT Modality Type: DX Gender: F Description: LOWER EXTREMITY : 56 Institution: [facility] [place] [facility] Physician: SOUTH /MED SURG Right ankle History: Fell 1 week ago Three views of the right ankle were obtained which demonstrate the presence of an acute and displaced medial malleolar fracture. The fracture fragment has displaced approximately 1.2 cm medially and anteriorly relative to the remainder of the tibia. The talar dome is intact and the lateral malleolus is intact. Large dorsal and plantar calcaneal spurs. Impression: Displaced medial malleolar fracture as described with associated soft tissue swelling. Large dorsal and plantar calcaneal spurs. Electronically signed on Nov 16, 2017 9:16:28 AM CDT by: Leandra BHATT
[2017-11-17] MEDS: FAMOTIDINE 20 MG TABLET PO SCH (06:28)
[2017-11-17] MEDS: GLIMEPIRIDE 2 MG TABLET PO SCH ×2 (07:33→07:38)
[2017-11-17] MEDS: POTASSIUM CHLORIDE 20 MEQ TABLET.ER PO SCH (09:44)
[2017-11-17] MEDS: LACTULOSE 10 GM/15 ML UDC PO SCH ×2 (09:44→14:38)
[2017-11-17] MEDS: GABAPENTIN 100 MG CAPSULE PO SCH ×2 (09:44→14:38)
[2017-11-17] MEDS: FUROSEMIDE 40 MG TABLET PO SCH (09:44)
[2017-11-17 11:12] VITALS: BP 106/46
[2017-11-17] MEDS: FERROUS SULFATE 325 MG TABLET PO SCH (11:33)
--- NOTE | 2017-11-18 10:58 | History and Physical Report ---
History of Present Illnes - History of Present Illness Reason for Visit: gait disturbance History of Present Illness: Patient is a 57-year-old white female who's been having some increasing difficulties with ambulation over the last several months. Patient stated her legs will become very swollen will start we been in the chill have difficulties in moving them around. Patient has been in skilled therapy to try to help with this. However when she returned back home she started having difficulties usually after couple weeks. Patient stated recently she almost fell and caught herself heard a pop in her right ankle and is been having some increasing pain in difficulties with ambulating since that time. Patient subsequently came to the ED however was not complaining of any ankle pain at that time. Patient was admitted to the hospital. An x-ray with done a was shown that the patient has a medial malleolus fracture on the right side. - Past Medical History Cardiac: HTN, Other (chronic leg swelling). denies: CAD, Valve insufficiency, Pulmonary hypertension Gastrointestinal: Other (fatty liver disease) Heme/Onc: Other (Pancytopenia) Psych: Anxiety Musculoskeletal: Osteoarthritis Rheumatologic: Other (Psoriasis) Endocrine: Diabetes (IDDM) - Past Surgical History Past Surgical History: Total Knee Replacement, Other (gall stone removal) - Past Family History Mother Family History: Father Family History: - Past Social History Smoke: No Alcohol: None Lives: With Family - Health Maintenance Health Maintenance: Cholesterol, Influenza Vaccine, Pneumococcal Vaccine Influenza Vaccine: Current for this Influenza Season Pneumonia Vaccine: No Resuscitation Status: Resusciation Status Resuscitation Status Full Code - Unable to Obtain History Unable to Obtain: No Review of Systems - Review of Systems Constitutional: Weakness. negative: Fever, Chills, Sweats Eyes: negative: pain, vision change ENT: negative: Ear Pain, Ear Discharge, Nose Pain, Nose Discharge, Nose Congestion, Mouth Pain, Mouth Swelling Respiratory: SOB with Excertion. negative: Cough, Dry, Shortness of Breath, Hemoptysis, Pleuritic Pain, Sputum, Wheezing, Deferred Cardiovascular: negative: Chest Pain, Palpitations, Orthopnea, Edema, Light Headedness Gastrointestinal: negative: Nausea, Vomiting, Abdominal Pain, Diarrhea, Constipation, Melena, Hematochezia Genitourinary: negative: Dysuria, Frequency, Incontinence, Hematuria Musculoskeletal: Back Pain, Leg Pain Skin: negative: Rash Neurological: Weakness. negative: Numbness, Incoordination - Medications/Allergies Allergies/Adverse Reactions: Allergies Allergy/AdvReac Type Severity Reaction Status Date / Time No Known Allergies Allergy Verified 11/15/17 09:35 Exam - Exam Vital Signs: Vital Signs (72 hours) 11/15/17 11/15/17 11/15/17 14:15 16:00 18:15 Temperature 96.8 F L 98.4 F 97.5 F L Pulse Rate [ 74 72 79 Left Pulse ox] Pulse Rate [ Right] Respiratory 16 16 20 Rate Blood Pressure 109/64 [Left Arm] Blood Pressure 105/41 119/46 [Right Arm] O2 Sat by Pulse 100 96 99 Oximetry 11/15/17 11/16/17 11/16/17 22:00 02:00 06:00 Temperature 97.8 F 98.0 F 97.9 F Pulse Rate [ 80 70 73 Left Pulse ox] Pulse Rate [ Right] Respiratory 18 16 16 Rate Blood Pressure 94/49 [Left Arm] Blood Pressure 109/42 100/42 [Right Arm] O2 Sat by Pulse 99 97 94 Oximetry 11/16/17 11/16/17 11/16/17 10:00 13:24 14:00 Temperature 98.3 F 98 F Pulse Rate [ 73 73 Left Pulse ox] Pulse Rate [ 69 69 69 Right] Respiratory 18 18 18 Rate Blood Pressure [Left Arm] Blood Pressure 95/34 90/36 [Right Arm] O2 Sat by Pulse 100 100 Oximetry 11/16/17 11/16/17 11/17/17 18:00 20:25 02:00 Temperature 97.9 F 98.5 F 99.3 F Pulse Rate [ 73 74 Left Pulse ox] Pulse Rate [ 72 81 74 Right] Respiratory 16 18 18 Rate Blood Pressure 94/42 88/42 [Left Arm] Blood Pressure 96/39 [Right Arm] O2 Sat by Pulse 99 99 99 Oximetry 11/17/17 11/17/17 11/17/17 05:22 10:00 10:27 Temperature 99.3 F 95.8 F L 95.8 F L Pulse Rate [ 74 74 Left Pulse ox] Pulse Rate [ 81 75 75 Right] Respiratory 18 18 18 Rate Blood Pressure 88/42 88/42 [Left Arm] Blood Pressure 106/46 106/46 [Right Arm] O2 Sat by Pulse 99 98 98 Oximetry General: Alert, Oriented to Person, Oriented to Place, Oriented to Time, Cooperative, Obese HEENT: Atraumatic, PERRLA, EOMI, Mouth Mucous membr. moist/[place], Nose Mucous membr. moist/[place] Neck: Normal Range of Motion Carotids: WNL Thyroid: WNL Lungs: Clear to auscultation, Normal air movement, Speaks full Sentences Cardiovascular: Regular rate, Normal S1, Normal S2, No murmurs Abdomen: Normal bowel sounds, Soft, No tenderness, No hepatospenomegaly, No masses Integumentary: Normal, [place], Warm, Dry Extremities: No clubbing, No cyanosis, Normal pulses, Other (tenderness over the right ankle area, 3 plus pedal edema) Neurological: Normal gait, Normal speech, Strength Equal Bilat, Normal tone, Sensation intact, Cranial nerves 3-12 NL, Reflexes 2+ Psych/Mental Status: Mental status NL, Mood NL, Appropriate Affect, Intact Judgment - Laboratory Results Laboratory Results: Laboratory Results 11/16/17 14:40 Sodium 139 Potassium 4.3 Chloride 110 H Carbon Dioxide 24 BUN 31 H Creatinine 1.40 H Estimated Creat Clear 91 Est GFR ( Amer) > 60 Est GFR (Non-Af Amer) 41 L Glucose 101 Calcium 8.5 Assessment/Plan - Assessment/Plan (1) Fracture of medial malleolus, right, closed Status: Acute (2) Nonalcoholic fatty liver disease Status: Chronic Assessment: stable (3) Bilateral leg edema Status: Chronic Assessment: will treat with lasix, will monitor weight (4) CHF (congestive heart failure) Status: Chronic Qualifiers: Heart failure type: diastolic Heart failure chronicity: acute Qualified Code(s): I50.31 - Acute diastolic (congestive) heart failure Comment: stable (5) CKD (chronic kidney disease) Status: Chronic (6) Diabetes mellitus type 2 Status: Chronic Assessment: continue with preset meds (7) Pancytopenia Status: Chronic Assessment: stable VTE Assessment - RISK FACTOR SCORE VTE RISK FACTOR SCORES: AGE 40-60 YEARS, ANTICIPATED BED CONFINEMENT OR IMMOBILIZATION > 24 HOURS - RISK VTE MODERATE RISK: SCORE OF 2 (RISK PROXIMAL DVT 2-4%) PROPHYAXIS NEEDED
--- NOTE | 2017-11-18 11:15 | Discharge Summary ---
Discharge Summary - Discharge Sumary History of Present Illness: Patient is a 57-year-old white female who's been having some increasing difficulties with ambulation over the last several months. Patient stated her legs will become very swollen will start we been in the chill have difficulties in moving them around. Patient has been in skilled therapy to try to help with this. However when she returned back home she started having difficulties usually after couple weeks. Patient stated recently she almost fell and caught herself heard a pop in her right ankle and is been having some increasing pain in difficulties with ambulating since that time. Patient subsequently came to the ED however was not complaining of any ankle pain at that time. Patient was admitted to the hospital. An x-ray with done a was shown that the patient has a medial malleolus fracture on the right side. Condition at Discharge: Stable Home Medications: Ambulatory Orders Medication Instructions Recorded Lactulose [Enulose] 20 gm PO TID udc 10/28/17 Potassium Chloride [Klor-Con M20] 40 meq PO DAILY tablet.er 11/17/17 Allergies/Adverse Reactions: Allergies Allergy/AdvReac Type Severity Reaction Status Date / Time No Known Allergies Allergy Verified 11/15/17 09:35 Discharge Summary: When patient was found to have at this place medial malleolus fracture she was placed in a posterior splint nonweightbearing. Swelling in the patient leg did improve with elevation. Patient did have some mild hypoglycemic episodes during her hospital stay. Patient was discontinued off of her glyceride. Her blood pressure remained stable. An appointment was made for the patient be followed up in orthopedic clinic. However she was not going to be able to bear weight on her right leg. Patient was subsequently transferred to [facility] for jail care until more definitive treatment could be done with her distal tibial fracture. Patient was transferred in stable condition. - Final Diagnosis (1) Fracture of medial malleolus, right, closed Problems: splinted (2) Gait disturbance Problems: nonweight bearing on the right leg (3) Bilateral leg edema Problems: improved (4) Nonalcoholic fatty liver disease Problems: Stable on home medications. (5) CKD (chronic kidney disease) Problems: Stable on home medications. (6) Diabetes type 2, controlled Problems: Stable on home medications. (7) Essential hypertension Problems: Stable on home medications. (8) Pancytopenia Problems: stable
== END 2017-11-17 14:30 | disposition home or self-care (01) ==
LOC: ED 08:42 → UNDOADMIN 12:26 → INTOOBSV 12:26 → SOUTH 12:26
PROVIDERS: ADMIT Family Medicine; ATTEND Family Medicine
DX: S82.61XA Displaced fracture of lateral malleolus of right fibula, initial encounter for closed fracture (principal); E11.9 Type 2 diabetes mellitus without complications; K76.0 Fatty (change of) liver, not elsewhere classified; E11.22 Type 2 diabetes mellitus with diabetic chronic kidney disease; I12.9 Hypertensive chronic kidney disease with stage 1 through stage 4 chronic kidney disease, or unspecified chronic kidney disease; N18.9 Chronic kidney disease, unspecified; X58.XXXA Exposure to other specified factors, initial encounter; Y93.9 Activity, unspecified; Y92.9 Unspecified place or not applicable
CPT/HCPCS: 36415; 71045; 73610; 80048; 80053; 81002; 83880; 84484; 85025; 96365; 96366; 97161; 97530; 99284; A9270; G0378; G8979; J7030; 99217; 99219; S1016

== ENCOUNTER 2018-02-17 06:01 | Emergency (ER) | payer BC ==
[2018-02-17] MEDS ORDERED: FUROSEMIDE 40 MG/4 ML VIAL ONE (06:20)
[2018-02-17] MEDS ORDERED: IPRATROPIUM/ALBUTEROL SULFATE 3 ML AMPUL.NEB NEB STA (06:36)
[2018-02-17] MEDS ORDERED: ETOMIDATE 20 MG/10 ML IV ONE ×2 (06:36→06:57)
[2018-02-17] MEDS ORDERED: IPRATROPIUM/ALBUTEROL SULFATE 3 ML AMPUL.NEB NEB ONE (06:39)
[2018-02-17] MEDS ORDERED: ETOMIDATE 20 MG/10 ML IV STA (06:44)
[2018-02-17] MEDS ORDERED: SUCCINYLCHOLINE CHLORIDE 20 MG/ML 10ML VIAL IVP ONE ×2 (06:45→06:55)
[2018-02-17] MEDS ORDERED: PROPOFOL 200 MG/20 ML VIAL IV ONE ×2 (06:55→06:59)
--- NOTE | 2018-02-17 07:15 | Diagnostic Imaging Report ---
TULIO MCLAIN [facility] [id number] [facility].[address] [address] Report Submission Date: Feb 17, 2018 6:49:55 AM CDT Patient Study Name: TIM HIDALGO Date: Feb 17, 2018 6:19:15 AM CDT Modality Type: DX Gender: F Description: CHEST : 56 Institution: [facility] Physician: TULIO MCLAIN HISTORY: 57-year-old female with respiratory distress. COMPARISON: Chest x-ray dated 11/15/2017. TECHNIQUE: Single portable AP view of the chest was performed. IMPRESSION: 1. Severely limited study secondary to patient motion and film underpenetration. Recommend repeat study with improved technique. 2. Cardiomegaly. 3. Possible bibasilar infiltrates, right greater than left, versus appearance due to artifact. Electronically signed on Feb 17, 2018 6:49:55 AM CDT by: Vidal BHATT
[2018-02-17] MEDS ORDERED: MIDAZOLAM HCL 5 MG/5 ML VIAL IVP ONE (07:17)
[2018-02-17] MEDS ORDERED: ROCURONIUM BROMIDE 10 MG/ML 5ML VIAL IVP ONE (07:19)
--- NOTE | 2018-02-17 07:20 | Diagnostic Imaging Report ---
TULIO MCLAIN [facility] [address] [facility] [address] [address] Report Submission Date: Feb 17, 2018 7:20:16 AM CDT Patient Study Name: TIM HIDALGO Date: Feb 17, 2018 7:00:22 AM CDT Modality Type: DX Gender: F Description: CHEST : 56 Institution: [facility] Physician: TULIO MCLAIN HISTORY: 57-year-old female with status post intubation. COMPARISON: Chest x-ray from earlier same day (06:19 a.m.). TECHNIQUE: Single portable AP view of the chest was performed. IMPRESSION: 1. Interval intubation with the tip of the endotracheal tube about 3.5 cm above the radha. Poor image quality limits evaluation of the endotracheal tube. 2. Increased opacity throughout the right lung is suggestive of infiltrate and/or layering effusion. There is also likely a left basilar infiltrate, although the lung bases are not completely included on this severely technically limited image. 3. Cardiomegaly. Electronically signed on Feb 17, 2018 7:20:16 AM CDT by: Vidal BHATT
--- NOTE | 2018-02-17 07:58 | ED Physician Documentation ---
Critical Care - HPI Stated Complaint: SOA Chief Complaint: Altered Mental Status Additional Information: pt arrives via EMS unresponsive and in resp distress. GCS 5. blood glucose 139. Onset: hours (0100) - INITIAL FINDINGS BY MEDICS Mentation: Unresponsive Respirations: Dyspneic - PRE-HOSPITAL TREATMENT Oxygen: other (duoneb) CRP/Thumper: No IV Access: No IV Fluids: No - ROS CONST: other (luz) Comment: ROS unable to obtain Due to pt condition - PAST HX Lung, Cardiac, DM: other Allergies/Adverse Reactions: Allergies Allergy/AdvReac Type Severity Reaction Status Date / Time No Known Drug Allergies Allergy Verified 02/17/18 06:29 Home Medications: Ambulatory Orders Medication Instructions Recorded Lactulose [Enulose] 20 gm PO TID udc 10/28/17 Potassium Chloride [Klor-Con M20] 40 meq PO DAILY tablet.er 11/17/17 Aspirin 1 tab PO DAILY 02/17/18 Calcium Carb 600Mg [Caltrate] 2 tab PO DAILY 02/17/18 Furosemide [Lasix] 1 tab PO DAILY 02/17/18 Potassium Chloride [Klor-Con M20] 1 tab PO PM 02/17/18 - FAMILY HX Family History: No (unknown) - VITAL SIGNS Vital Signs: Vital Signs Temp Pulse Resp BP Pulse Ox 99.7 F H 107 H 24 125/49 100 02/17/18 06:01 02/17/18 06:01 02/17/18 06:01 02/17/18 06:01 02/17/18 06:01 - REVIEWED ASSESSMENTS Nursing Assessment Reviewed: Yes Vitals Reviewed: Yes Procedures Time of Intubation: 06:55 (see addenda) Intubation Method: orotracheal Tube Size (cm): combitube Medications: Succinylcholine (see nurses documentation) Breath Sounds after Intubation: equal Intubation Complications: oral-unsuccessful attempt Post Intubation Xray: Yes Progress/Xray Impression: Progress - Consult/PCP Time Called: 07:13 Consult/PCP: Dr Patel Consult Reason/Comments: accepted pt for transfer to [facility] MICU via [facility] faster than air ED Results Lab/Radiology - Radiology Radiology Impressions: HISTORY: 57-year-old female with respiratory distress. COMPARISON: Chest x-ray dated 11/15/2017. TECHNIQUE: Single portable AP view of the chest was performed. IMPRESSION: 1. Severely limited study secondary to patient motion and film underpenetration. Recommend repeat study with improved technique. 2. Cardiomegaly. 3. Possible bibasilar infiltrates, right greater than left, versus appearance due to artifact. Electronically signed on Feb 17, 2018 6:49:55 AM CDT by: Vidal Roberts HISTORY: 57-year-old female with status post intubation. COMPARISON: Chest x-ray from earlier same day (06:19 a.m.). TECHNIQUE: Single portable AP view of the chest was performed. IMPRESSION: 1. Interval intubation with the tip of the endotracheal tube about 3.5 cm above the radha. Poor image quality limits evaluation of the endotracheal tube. 2. Increased opacity throughout the right lung is suggestive of infiltrate and/or layering effusion. There is also likely a left basilar infiltrate, although the lung bases are not completely included on this severely technically limited image. 3. Cardiomegaly. Electronically signed on Feb 17, 2018 7:20:16 AM CDT by: Vidal Roberts - Orders Orders: ED Orders Category Date Time Status CHEST 1VIEW [RAD] Stat Exams 02/17/18 Completed CHEST 1VIEW [RAD] Stat Exams 02/17/18 Completed Etomidate [Amidate] Med 02/17/18 06:36 Discontinued 20 mg IV .STK-MED ONE Furosemide [Lasix] Med 02/17/18 06:20 Discontinued 80 mg .ROUTE .STK-MED ONE Ipratropium/Albuterol Sulfate [Duoneb] Med 02/17/18 06:39 Discontinued 3 ml NEB .STK-MED ONE Midazolam HCl/Pf [Versed] Med 02/17/18 07:17 Discontinued 10 mg IVP .STK-MED ONE Propofol [Diprivan] Med 02/17/18 06:59 Discontinued 200 mg IV .STK-MED ONE Discharge Clincal Impression: ARDS (adult respiratory distress syndrome) Referrals: Alexis Pollard MD [Primary Care Provider] - 2 Days Comments: critical care entire stay EXAM Gen: Pt arrives in severe resp distress. afebrile. Morbidly obese. Constitutional: General Appearance: chronically ill appearing Level of Distress: severe Mental Status: responsive to pain only GCS 5 Head: normocephalic and atraumatic. Eyes: Lids and Conjunctivae: no discharge or pallor and non-injected. Pupils: PERRLA. 4 cm Sclerae: icteric. ENMT: Ears: no lesions on external ear. Nose: no lesions on external nose or nasal discharge. Lips, Teeth, and Gums: no mouth or lip ulcers. Oropharynx: moist mucous membranes. Mallampati Class III Neck: supple, trachea midline, and no masses; large. No carotid bruits. Lungs: Respiratory effort: dyspnea. Rate 36. Auscultation: diminished. Cardiovascular: Heart Auscultation: S1 S2 no MGR. tachycardia 116. edematous. Abdomen: Bowel Sounds: normal. large, not distended. Musculoskeletal: no cyanosis.RLE short leg cast. no spontaneous movements. Skin: Inspection and palpation: no rash warm dry. No ecchymosis. jaundice. Condition: Critical Disposition: 02 XFER [facility] HOSP Decision to Admit: NO Date of Decison to Admit: 02/17/18 Decision Time: 07:00
[2018-02-17 08:02] LABS: eGFR (Non-African) > 60
[2018-02-17 08:03] LABS: MEAN CORPUSCULAR HEMOGLOBIN 33.5 pg (28.0-34.0)
[2018-02-17 08:06] LABS: BASOPHILS % 0.4 (0.0-1.5); EOSINOPHILS % 0.6 % (0.0-6.8); NEUTROPHILS # 9.1 # k/uL (1.4-7.7)
[2018-02-17 08:09] VITALS: BP 122/50
[2018-02-17] MEDS ORDERED: 0.9 % SODIUM CHLORIDE 1,000 ML IV ONE (08:14)
== END 2018-02-17 07:33 | disposition short-term general hospital (02) ==
LOC: ED 06:01
DX: J80 Acute respiratory distress syndrome (principal)
CPT/HCPCS: 71045; 80053; 85025; 87040; J0330; J2704; J3490; 94640; 96374; 96375; 96376; 99291; 99292; S1016